=== PATIENT | male | born 1970 | race Caucasian/White ===

== ENCOUNTER 2016-08-11 18:33 | Inpatient (IN) | payer MEDICAID, OTHER, SELFPAY ==
[~2016-08-11] VITALS: Ht 182.9 cm; Wt 92.4 kg
[~2016-08-11 18:33] MED LIST: /DIPH25TAB PO; /MIRT15TA PO; ATEN50TA2 PO; DEPA500T2 PO; EFFEXOR XR PO; HYDR50TA PO; IMIT100T PO; LISI20TA PO; LITH600C PO; METO12TA PO; OMEP20CA3 PO; PRED50TA PO; PROZ20CA11 PO; SEROQUEL PO; TRAZ100T2 PO; TRAZ150T PO; no home medication
[2016-08-11] MEDS ORDERED: NS 1,000 ML IV ONE ×2 (18:45→23:00)
[2016-08-11 19:07] LABS: BASO # 0.1 K/mm3 (0.0-0.2); BASO % 0.7 % (0.0-1.0); EOS # 0.4 K/mm3 (0.0-0.50); EOS % 4.1 % (0.0-3.0); LARGE UNSTAINED CELL # 0.2 K/mm3 (0.0-0.4); LARGE UNSTAINED CELL % 2.3 % (0.0-4.0); LYMPH # 2.8 K/mm3 (1.5-4.5); LYMPH % 32.5 % (24.0-44.0); MEAN CORPUSCULAR HEMOGLOBIN 32.3 pg (27.0-33.0); MEAN CORPUSCULAR HGB CONC 33.8 g/dl (32.0-36.5); MEAN CORPUSCULAR VOLUME 95.6 fl (80.0-96.0); MONO # 0.5 K/mm3 (0.0-0.8); MONO % 5.8 % (0.0-5.0); NEUTROPHILS # 4.7 K/mm3 (1.8-7.7); NEUTROPHILS % 54.6 % (36.0-66.0); PLATELET COUNT, AUTOMATED 250 k/mm3 (150-450); RED CELL DISTRIBUTION WIDTH 13.1 % (11.5-14.5); WHITE BLOOD COUNT 8.7 K/mm3 (4.0-10.0)
--- NOTE | 2016-08-11 19:10 | REPUSA ---
CT of the head Clinical history: altered mental status. Technique: Multiple axial CT images were obtained through the head without administration of contrast . Comparison: None. Findings: The ventricles and sulci are symmetric bilaterally. There is no evidence of acute hemorrhag e or infarct. There is no midline shift, mass effect, or extra-axial fluid collection. The osseous st ructures are unremarkable. The visualized paranasal sinuses and mastoid air cells are clear. Impression: Negative study.
[2016-08-11 19:22] LABS: ALBUMIN 3.7 GM/DL (3.2-5.2); ALBUMIN/GLOBULIN RATIO 1.32 (1.00-1.93); ALKALINE PHOSPHATASE 79 U/L (45-117); ALT/SGPT 40 U/L (12-78); ANION GAP 8 MEQ/L (8-16); AST/SGOT 23 U/L (15-37); BILIRUBIN,DIRECT 0.1 MG/DL (0.0-0.2); BILIRUBIN,TOTAL 0.2 MG/DL (0.2-1.0); BLOOD UREA NITROGEN 19 MG/DL (7-18); CALCIUM LEVEL 8.3 MG/DL (8.5-10.1); CARBON DIOXIDE LEVEL 24 MEQ/L (21-32); CHLORIDE LEVEL 109 MEQ/L (98-107); CREATININE FOR GFR 0.87 MG/DL (0.70-1.30); GLOMERULAR FILTRATION RATE > 60.0 (>60); GLUCOSE, FASTING 91 MG/DL (70-105); POTASSIUM SERUM 4.1 MEQ/L (3.5-5.1); SODIUM LEVEL 141 MEQ/L (136-145); TOTAL PROTEIN 6.5 GM/DL (6.4-8.2)
[2016-08-11] MEDS ORDERED: MIDAZOLAM INJ 2 MG/2 ML VIAL (J2250) IV STA ×2 (19:27→19:50)
[2016-08-11] MEDS ORDERED: MIDAZOLAM INJ 5 MG/ML VIAL (J2250) As Ordered ONE ×2 (19:27→20:27)
[2016-08-11] MEDS ORDERED: MIDAZOLAM HCL 50 MG in D5W 40 ML IV SCH (19:30)
[2016-08-11] MEDS ORDERED: ETOMIDATE INJ 20MG/10ML VIAL IV ONE (19:30)
[2016-08-11] MEDS ORDERED: SUCCINYLCHOLINE INJ 200 MG/10 ML VIAL (J0330) IV ONE (19:30)
[2016-08-11] MEDS ORDERED: CHARCOAL ACTIVATED LIQUID 25 GM/120 ML BTL PO ONE (20:00)
[2016-08-11 20:19] LABS: METHADONE URINE NEGATIVE (NEGATIVE)
[2016-08-11] MEDS ORDERED: MORPHINE 2 MG/ML 1ML SYRINGE IV PRN (22:45)
[2016-08-11] MEDS ORDERED: REFRIGERATOR IV KEYS XX PRN (22:45)
[2016-08-11] MEDS ORDERED: NS 1,000 ML IV SCH (23:00)
[2016-08-11 23:30] LABS: ABG BASE EXCESS -3.1 (-2.0-2.0); ABG PARTIAL PRESSURE CO2 45.3 mmHg (35.0-45.0); ABG PARTIAL PRESSURE O2 128.3 mmHg (75.0-100.0); ABG STANDARD HCO3 21.9 MEQ/L (22.0-26.0); ABG TOTAL CO2 24.4 MEQ/L (22.0-29.0); ABG pH (ARTERIAL) 7.324 UNITS (7.350-7.450)
[2016-08-11] MEDS: D5W/0.9% SODIUM CHLORIDE 1,000 ML IV SCH (23:48)
[2016-08-11] MEDS ORDERED: ETOMIDATE INJ 20MG/10ML VIAL ONE (23:51)
[2016-08-11] MEDS ORDERED: SUCCINYLCHOLINE 100 MG/5 ML SYRINGE (J0330) ONE (23:51)
[2016-08-12] VITALS (15 sets, daily range): BP systolic 91–142; BP diastolic 53–89; O2SAT 99
[2016-08-12] MEDS ORDERED: MIDAZOLAM HCL 100 MG in D5W 80 ML IV SCH (00:05)
--- NOTE | 2016-08-12 01:05 | REP ---
Clinical: Endotracheal tube placement . Comparison: 11/29/2013 . Findings: Endotracheal tube approximately 6 cm above the jose g at the thoracic inlet. Nasogastric tube courses below left hemidiaphragm. The mediastinum and cardiac silhouette are stable and within normal limits for portable technique. The lung white are clear without acute consolidation, effusion, or pneumothorax. Skeletal structures are intact. Impression: No focal consolidation. Endotracheal tube and nasogastric tube as described above. Signed by Ezequiel Yen MD 08/12/2016 12:57 A
[2016-08-12] MEDS ORDERED: PATIENT COMMENT (01:26)
[2016-08-12] MEDS ORDERED: LevoFLOXacin IV 500 MG in APPROPRIATE DILUENT 1 EA IV SCH (02:00)
[2016-08-12] MEDS: IPRATROPIUM 0.5MG/ALBUTEROL 2.5MG INH SOL UD 3ML (DUONEB)(J7620) NEB SCH ×4 (02:29→11:40)
[2016-08-12 04:52] LABS: BASO % 0.4 % (0.0-1.0); EOS # 0.2 K/mm3 (0.0-0.50); EOS % 3.2 % (0.0-3.0); LARGE UNSTAINED CELL # 0.1 K/mm3 (0.0-0.4); LARGE UNSTAINED CELL % 2.2 % (0.0-4.0); LYMPH # 1.6 K/mm3 (1.5-4.5); LYMPH % 26.8 % (24.0-44.0); MEAN CORPUSCULAR HEMOGLOBIN 32.3 pg (27.0-33.0); MEAN CORPUSCULAR HGB CONC 32.9 g/dl (32.0-36.5); MEAN CORPUSCULAR VOLUME 98.2 fl (80.0-96.0); MONO # 0.3 K/mm3 (0.0-0.8); MONO % 5.7 % (0.0-5.0); NEUTROPHILS # 3.7 K/mm3 (1.8-7.7); NEUTROPHILS % 61.7 % (36.0-66.0); PLATELET COUNT, AUTOMATED 220 k/mm3 (150-450)
[2016-08-12 05:12] LABS: ALBUMIN 2.9 GM/DL (3.2-5.2); ALBUMIN/GLOBULIN RATIO 1.07 (1.00-1.93); ALKALINE PHOSPHATASE 67 U/L (45-117); ALT/SGPT 29 U/L (12-78); ANION GAP 8 MEQ/L (8-16); AST/SGOT 15 U/L (15-37); BILIRUBIN,TOTAL 0.6 MG/DL (0.2-1.0); BLOOD UREA NITROGEN 12 MG/DL (7-18); CALCIUM LEVEL 7.4 MG/DL (8.5-10.1); CARBON DIOXIDE LEVEL 24 MEQ/L (21-32); CHLORIDE LEVEL 110 MEQ/L (98-107); CHOLESTEROL LEVEL 103 MG/DL (< 200); CREATININE FOR GFR 0.78 MG/DL (0.70-1.30); GLOMERULAR FILTRATION RATE > 60.0 (>60); GLUCOSE, FASTING 93 MG/DL (70-105); PHOSPHORUS LEVEL 4.5 MG/DL (2.5-4.9); POTASSIUM SERUM 3.9 MEQ/L (3.5-5.1); SODIUM LEVEL 142 MEQ/L (136-145); TOTAL PROTEIN 5.6 GM/DL (6.4-8.2); TRIGLYCERIDES LEVEL 986 MG/DL (<150)
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
[2016-08-12] MEDS: D5W/0.9% SODIUM CHLORIDE 1,000 ML IV SCH (05:44)
[2016-08-12] MEDS: HEPARIN SOD (PORCINE) 5000 UNITS/ML VIAL SC SCH ×2 (05:45→14:14)
[2016-08-12] MEDS: MIDAZOLAM INJ 2 MG/2 ML VIAL (J2250) IV PRN ×2 (05:54→06:57)
[2016-08-12 06:22] LABS: ABG HCO3 22.6 MEQ/L (22.0-26.0); ABG PARTIAL PRESSURE CO2 38.1 mmHg (35.0-45.0); ABG PARTIAL PRESSURE O2 93.1 mmHg (75.0-100.0); ABG STANDARD HCO3 22.8 MEQ/L (22.0-26.0); ABG TOTAL CO2 23.8 MEQ/L (22.0-29.0); ABG pH (ARTERIAL) 7.391 UNITS (7.350-7.450)
[2016-08-12 07:40] LABS: ABG HCO3 22.2 MEQ/L (22.0-26.0); ABG PARTIAL PRESSURE CO2 36.2 mmHg (35.0-45.0); ABG PARTIAL PRESSURE O2 71.3 mmHg (75.0-100.0); ABG STANDARD HCO3 22.8 MEQ/L (22.0-26.0); ABG TOTAL CO2 23.3 MEQ/L (22.0-29.0); ABG pH (ARTERIAL) 7.406 UNITS (7.350-7.450)
[2016-08-12] MEDS ORDERED: CHLORHEXIDINE GLUCONATE 0.12 % 15ML UDC (PERIDEX ORAL RINSE) MT SCH (09:00)
[2016-08-12] MEDS ORDERED: PANTOPRAZOLE 40MG INJ (PROTONIX) (C9113) IV SCH (09:00)
[2016-08-12] MEDS ORDERED: THIAMINE 100 MG TAB PO SCH (09:00)
[2016-08-12] MEDS ORDERED: OXAZEPAM 10 MG CAP PO PRN (09:00)
[2016-08-12] MEDS ORDERED: MULTIVITAMINS/MINERALS THERAP 1 TAB PO SCH (09:00)
[2016-08-12] MEDS ORDERED: FOLIC ACID 1 MG TAB PO SCH (09:00)
--- NOTE | 2016-08-12 09:15 | REP ---
PORTABLE CHEST: AP portable view of the chest was performed and compared to prior study of 08/11/2016. The study is limited by patient motion. There again appears to be an endotracheal tube vaguely visualized with no definite change in position. Nasogastric tube traverses into the stomach. Cardiomediastinal silhouette is unchanged. No gross infiltrates are seen. IMPRESSION: Grossly stable exam. Signed by Maximus Centeno MD 08/13/2016 05:06 P
--- NOTE | 2016-08-12 11:16 | ECGEPIP ---
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
--- NOTE | 2016-08-12 11:20 | ECGEPIP ---
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
[2016-08-12] MEDS ORDERED: FOLI1TAB2 PO (16:02)
[2016-08-12] MEDS ORDERED: THIA100TA PO (16:02)
[2016-08-12] MEDS ORDERED: VITMTA PO (16:02)
[2016-08-12] MEDS ORDERED: LEVA500T PO (16:02)
[2016-08-12] MEDS ORDERED: OXAZ10CA PO (16:02)
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
[2016-08-12] MEDS ORDERED: LevoFLOXacin 500 MG TABLET PO SCH (18:00)
--- NOTE | 2016-08-13 00:57 | ECGEPIP ---
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
== END 2016-08-12 17:25 | DRG 812 ==
LOC: M ED 19:14 → M ED INP 23:05 → M ICU 23:59
PROVIDERS: ADMIT Internal Medicine Pulmonary Disease; ATTEND Hospitalist
PROC: 5A1945Z Respiratory Ventilation, 24-96 Consecutive Hours (ICD-10-PCS; principal; 2016-08-12)
DX: T42.4X2A Poisoning by benzodiazepines, intentional self-harm, initial encounter (principal); J69.0 Pneumonitis due to inhalation of food and vomit; T43.8X2A Poisoning by other psychotropic drugs, intentional self-harm, initial encounter; F10.129 Alcohol abuse with intoxication, unspecified; Z79.899 Other long term (current) drug therapy; Z91.040 Latex allergy status; Z88.0 Allergy status to penicillin; Y90.0 Blood alcohol level of less than 20 mg/100 ml

== ENCOUNTER 2016-08-12 16:37 | Inpatient (IN) | payer MEDICAID, SELFPAY ==
[~2016-08-12] VITALS: Ht 177.8 cm; Wt 95.1 kg
[~2016-08-12 16:37] MED LIST changes: +FOLI1TAB4 PO; +LEVA1TAB2 PO; +OXAZ10CA3 PO; +PATIENT COMMENT; +THIA100TA PO; +VITMTA PO
[2016-08-12 17:34] VITALS: BP 142/88
[2016-08-12 18:31] VITALS: BP_SYST 142
[2016-08-12] MEDS ORDERED: MAALOX 30 ML SUSP *UDC PO PRN (18:45)
[2016-08-12] MEDS ORDERED: traZODone 50 MG TAB PO PRN (18:45)
[2016-08-12] MEDS ORDERED: chlordiazePOXIDE 25 MG CAP PO PRN (18:45)
[2016-08-12] MEDS ORDERED: MOM 30ML SUSPENSION UDC PO PRN (18:45)
[2016-08-12] MEDS: LevoFLOXacin 500 MG TABLET PO SCH (20:09)
[2016-08-13 06:26] VITALS: BP 154/90
[2016-08-13] MEDS ORDERED: MUPIROCIN 2% OINT 22 GM TUBE TOP PRN (09:00)
[2016-08-13] MEDS: THIAMINE 100 MG TAB PO SCH (09:02)
[2016-08-13] MEDS: MULTIVITAMINS/MINERALS THERAP 1 TAB PO SCH (09:02)
[2016-08-13] MEDS: FOLIC ACID 1 MG TAB PO SCH (09:02)
[2016-08-13] MEDS: ACETAMINOPHEN TAB 650MG DOSE (2X325MG) PO PRN (09:03)
[2016-08-13] MEDS: SERTRALINE HCL 25 MG TABLET PO SCH (09:44)
[2016-08-13] MEDS: busPIRone 10 MG TAB PO SCH ×3 (09:44→20:37)
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
[2016-08-13] MEDS: NICOTINE POLACRILEX 2 MG GUM PO PRN ×2 (16:40→20:38)
[2016-08-13] MEDS: LevoFLOXacin 500 MG TABLET PO SCH (17:28)
[2016-08-13] MEDS: hydrOXYzine 25 MG TAB PO PRN (17:28)
[2016-08-13 18:00] VITALS: BP 134/81
[2016-08-13] MEDS ORDERED: QUEtiapine FUMERATE XR 50 MG TABER PO SCH (21:00)
[2016-08-14 06:41] VITALS: BP 125/76
[2016-08-14 07:45] LABS: MEAN CORPUSCULAR HEMOGLOBIN 32.6 pg (27.0-33.0); MEAN CORPUSCULAR HGB CONC 34.3 g/dl (32.0-36.5); MEAN CORPUSCULAR VOLUME 95.2 fl (80.0-96.0); RED CELL DISTRIBUTION WIDTH 13.3 % (11.5-14.5); WHITE BLOOD COUNT 9.2 K/mm3 (4.0-10.0)
[2016-08-14 08:09] LABS: ALBUMIN 3.2 GM/DL (3.2-5.2); ALBUMIN/GLOBULIN RATIO 1.03 (1.00-1.93); ALKALINE PHOSPHATASE 83 U/L (45-117); ALT/SGPT 31 U/L (12-78); ANION GAP 9 MEQ/L (8-16); AST/SGOT 18 U/L (15-37); BILIRUBIN,TOTAL 0.5 MG/DL (0.2-1.0); BLOOD UREA NITROGEN 18 MG/DL (7-18); CALCIUM LEVEL 8.7 MG/DL (8.5-10.1); CARBON DIOXIDE LEVEL 26 MEQ/L (21-32); CHLORIDE LEVEL 107 MEQ/L (98-107); CHOLESTEROL LEVEL 125 MG/DL (<200); CREATININE FOR GFR 0.88 MG/DL (0.70-1.30); GLOMERULAR FILTRATION RATE > 60.0 (>60); GLUCOSE, FASTING 118 MG/DL (70-105); SODIUM LEVEL 142 MEQ/L (136-145); TOTAL PROTEIN 6.3 GM/DL (6.4-8.2); TRIGLYCERIDES LEVEL 172 MG/DL (<150)
[2016-08-14] MEDS: SERTRALINE HCL 25 MG TABLET PO SCH (09:22)
[2016-08-14] MEDS: FOLIC ACID 1 MG TAB PO SCH (09:22)
[2016-08-14] MEDS: MULTIVITAMINS/MINERALS THERAP 1 TAB PO SCH (09:22)
[2016-08-14] MEDS: busPIRone 10 MG TAB PO SCH ×3 (09:22→21:35)
[2016-08-14] MEDS: THIAMINE 100 MG TAB PO SCH (09:22)
[2016-08-14] MEDS: NICOTINE POLACRILEX 2 MG GUM PO PRN (11:40)
[2016-08-14] MEDS: hydrOXYzine 25 MG TAB PO PRN (11:40)
[2016-08-14] MEDS: QUEtiapine FUMARATE 50 MG TAB PO PRN ×2 (12:57→21:35)
--- NOTE | 2016-08-14 13:55 | MHIPNPDOC ---
[facility] Progress Note Progress Note DATE OF SERVICE: 08/14/16 HISTORY: day 3/admitted after severe intentional overdose. Pt released from [facility] 1 week ago. VITAL SIGNS: See below. NEW TEST RESULTS: CURRENT MEDICATIONS: See below. MENTAL STATUS EXAMINATION: Patient is a 46-year old male, who is dressed in hospital attire, bald, medium frame, good eye contact . Speech: Is clearly states needs, spontaneous Language skills are good Thought processes including: goal directed Thought content: appropriate. Abstract reasoning, and computation: good. Description of associations: good. Description of abnormal or psychotic thoughts: no perceptual disturbance, no delusions, continues with limited thoughts of suicide. Judgment: limited Insight: fair. Orientation: well oriented in all spheres. Recent and remote memory: intact Attention span and concentration: poor since overdose, getting better Fund of knowledge: full. Mood: depressed Affect: congruent. DIAGNOSES: 1. MDD severe, recurrent without psychotic features. 2. Alcohol abuse 3. adjustment disorder with depressed mood and anxiety. ASSESSMENT:pt has been seclusive to room and sleeping most of the past 36 hours. Spoke with him today about attending therapeutic programming as part of his treatment. He agrees to do so. Pt is taking medication as ordered without side effects. No n/v/d or constipation. Explained risks and benefits to sertraline and quetiapine XR. Answered all questions. Explained purpose for these meds and what he should expect from them. Explained his prns and when to request them. pt is adjusting and participating in discharge planning. He is interested in inpatient substance abuse treatment and feels it would be beneficial for him. We will see if he is eligible for treatment in the area and if his PO will allow this. Pt is eating at meals, attending to hygiene and not creating behavior problems on the unit. He was visited by his Aeronautics Teacher, Pastor Saals today who called him "a good marleny". MANAGEMENT PLAN: increased seroquel xr at 6 p.m. today, change from 50 mg to 100mg, raised sertraline from 25 mg to 50 mg po. will monitor for improved mood, less racing thoughts, improved concentration, less anxiety. TIME SPENT: 20 minutes. Vital Signs Vital Signs Date Time Temp Pulse Resp B/P (MAP) Pulse Ox O2 Delivery O2 Flow Rate FiO2 08/14/16 06:41 98.4 56 16 125/76 (92) Laboratory Data 24H Labs Laboratory Tests 2 08/14/16 07:14: Anion Gap 9, Glomerular Filtration Rate > 60.0, Blood Urea Nitrogen 18, Creatinine 0.88, Sodium Level 142, Potassium Level 4.0, Chloride Level 107, Carbon Dioxide Level 26, Calcium Level 8.7#, Aspartate Amino Transf (AST/SGOT) 18, Alanine Aminotransferase (ALT/SGPT) 31, Alkaline Phosphatase 83, Total Bilirubin 0.5, Triglycerides Level 172H, LDL Cholesterol 28.6, Total Protein 6.3L, Albumin 3.2, Albumin/Globulin Ratio 1.03, Total Cholesterol 125, Non-HDL Cholesterol (LDL + VLDL) 63, Total HDL Cholesterol 62, Cholesterol/HDL Ratio 2.016 CBC/BMP Laboratory Tests 08/14/16 07:14 Red Blood Count 4.16 L, Mean Corpuscular Volume 95.2, Mean Corpuscular Hemoglobin 32.6, Mean Corpuscular Hemoglobin Concent 34.3, Red Cell Distribution Width 13.3, Calcium Level 8.7 #, Aspartate Amino Transf (AST/SGOT) 18, Alanine Aminotransferase (ALT/SGPT) 31, Alkaline Phosphatase 83, Total Bilirubin 0.5, Triglycerides Level 172 H, LDL Cholesterol 28.6, Total Protein 6.3 L, Albumin 3.2 Current Medications Current Medications Acetaminophen (Tylenol Tab) 650 mg Q6HP PRN PO HEADACHE or DISCOMFORT Last administered on 08/13/16 09:03; Start 08/12/16 at 18:45; Stop 09/11/16 at 18:44 Al Hydrox/Mg Hydrox/Simethicone (Mylanta) 30 ml Q4HP PRN PO HEARTBURN/ INDIGESTION; Start 08/12/16 at 18:45; Stop 09/11/16 at 18:44 Buspirone HCl (Buspar) 10 mg TID PO Last administered on 08/14/16 09:22; Start 08/13/16 at 09:00; Stop 09/12/16 at 08:59 Chlordiazepoxide (Librium) 25 mg TIDP PRN PO WITHDRAWAL SYMPTOMS; Start at 18:45; Stop 08/19/16 at 18:44 Folic Acid (Folic Acid) 1 mg QAM PO Last administered on 08/14/16 09:22; Start 08/13/16 at 09:00; Stop 09/12/16 at 08:59 Hydroxyzine HCl (Atarax) 25 mg Q6HP PRN PO ANXIETY Last administered on 11:40; Start 08/13/16 at 09:15; Stop 09/12/16 at 09:14 Levofloxacin (Levaquin) 500 mg DAILY@1800 PO Last administered on 08/13/16 17: 28; Start 08/12/16 at 18:00; Stop 08/19/16 at 17:59 Magnesium Hydroxide (Milk Of Magnesia) 30 ml DAILYPRN PRN PO CONSTIPATION; Start 08/12/16 at 18:45; Stop 09/11/16 at 18:44 Multivitamins (Theragram-M) 1 tab DAILY PO Last administered on 08/14/16 09:22 ; Start 08/13/16 at 09:00; Stop 09/12/16 at 08:59 Mupirocin (Bactroban 2% Ointment) 1 dose BID PRN TOP REDNESS/IRRITATION; Start 08/13/16 at 09:00; Stop 09/12/16 at 08:59 Nicotine (Nicorette) 2 mg Q2HP PRN PO NICOTINE WITHDRAWAL Last administered on 08/14/16 11:40; Start 08/12/16 at 18:45; Stop 09/11/16 at 18:44 Quetiapine Fumarate (SEROquel) 50 mg Q8HP PRN PO ANXIETY/AGITATION Last administered on 08/14/16 12:57; Start 08/13/16 at 09:15; Stop 09/12/16 at 09:14 Quetiapine Fumarate (Seroquel Xr) 50 mg QHS PO Last administered on 08/13/16 20:38; Start 08/13/16 at 21:00; Stop 08/14/16 at 12:36; Status DC Quetiapine Fumarate (Seroquel Xr) 100 mg DAILY@1800 PO ; Start 08/14/16 at 18:00 ; Stop 09/13/16 at 17:59 Sertraline HCl (Zoloft) 25 mg QAM PO Last administered on 08/14/16 09:22; Start 08/13/16 at 09:00; Stop 08/14/16 at 12:41; Status DC Sertraline HCl (Zoloft) 50 mg DAILY PO ; Start 08/15/16 at 09:00; Stop 09/14/16 at 08:59 Thiamine HCl (Thiamine HCl) 100 mg QAM PO Last administered on 08/14/16t 09:22 ; Start 08/13/16 at 09:00; Stop 09/12/16 at 08:59 Trazodone HCl (Desyrel) 50 mg QHSP PRN PO INSOMNIA; Start 08/12/16 at 18:45; Stop 09/11/16 at 18:44; Status Cancel Allergies Coded Allergies: Penicillins (Verified Allergy, Intermediate, rash, 05/29/12) Penicillins Cross Reactors (Verified Allergy, Intermediate, rash, 05/29/12) Latex (Verified Allergy, Mild, rash, 05/29/12) Dee Morley Aug 14, 2016 13:55
[2016-08-14] MEDS: QUEtiapine FUMERATE XR 50 MG TABER PO SCH (17:38)
[2016-08-14] MEDS: ACETAMINOPHEN TAB 650MG DOSE (2X325MG) PO PRN (17:39)
[2016-08-14] MEDS: LevoFLOXacin 500 MG TABLET PO SCH (17:39)
[2016-08-14 18:00] VITALS: BP 146/83
[2016-08-15 06:00] VITALS: BP 143/76
[2016-08-15] MEDS: FOLIC ACID 1 MG TAB PO SCH (08:02)
[2016-08-15] MEDS: THIAMINE 100 MG TAB PO SCH (08:03)
[2016-08-15] MEDS: busPIRone 10 MG TAB PO SCH ×3 (08:03→20:43)
[2016-08-15] MEDS: QUEtiapine FUMARATE 50 MG TAB PO PRN (08:03)
[2016-08-15] MEDS: hydrOXYzine 25 MG TAB PO PRN ×3 (08:03→20:43)
[2016-08-15] MEDS: SERTRALINE HCL 50 MG TAB PO SCH (08:03)
[2016-08-15] MEDS: MULTIVITAMINS/MINERALS THERAP 1 TAB PO SCH (08:03)
[2016-08-15] MEDS: NICOTINE POLACRILEX 2 MG GUM PO PRN ×2 (11:13→15:54)
[2016-08-15 18:00] VITALS: BP 142/63
[2016-08-15] MEDS: LevoFLOXacin 500 MG TABLET PO SCH (18:22)
[2016-08-15] MEDS: QUEtiapine FUMERATE XR 50 MG TABER PO SCH (18:23)
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
[2016-08-16 06:00] VITALS: BP 124/64
[2016-08-16] MEDS: THIAMINE 100 MG TAB PO SCH (08:06)
[2016-08-16] MEDS: FOLIC ACID 1 MG TAB PO SCH (08:06)
[2016-08-16] MEDS: SERTRALINE HCL 50 MG TAB PO SCH (08:06)
[2016-08-16] MEDS: MULTIVITAMINS/MINERALS THERAP 1 TAB PO SCH (08:06)
[2016-08-16] MEDS: busPIRone 10 MG TAB PO SCH ×3 (08:06→20:54)
[2016-08-16] MEDS: NICOTINE POLACRILEX 2 MG GUM PO PRN ×3 (08:08→18:00)
[2016-08-16] MEDS: QUEtiapine FUMARATE 50 MG TAB PO PRN (09:03)
[2016-08-16] MEDS: hydrOXYzine 25 MG TAB PO PRN ×2 (11:32→18:00)
[2016-08-16 18:00] VITALS: BP 140/95
[2016-08-16] MEDS: LevoFLOXacin 500 MG TABLET PO SCH (18:00)
[2016-08-16] MEDS: QUEtiapine FUMERATE XR 50 MG TABER PO SCH (18:00)
--- NOTE | 2016-08-16 18:21 | MHIPNPDOC ---
[facility] Progress Note Progress Note DATE OF SERVICE: 08/16/16 INTERVAL HISTORY: Medication Side effects: reports no side effects from his psychiatric medications at this time Behavior/events: has been friendly, with no issues overnight Group Attendance: has attended some groups Psychiatric Symptoms: reports that he is having difficulty with continued depressed mood, worries about his social situation, continues to have nightmares that awaken him during sleep. Reports that during these he experiences sweating and feelings of terror. VITAL SIGNS: See below. NEW TEST RESULTS: See below CURRENT MEDICATIONS: See below. MENTAL STATUS EXAMINATION: General: Well dressed with good hygiene Speech: Spontaneous and fluid Thought processes: Linear and logical Thought content: worries Abstract reasoning, and computation: Intact Description of associations: Intact Description of abnormal or psychotic thoughts:Denies any suicidal or homicidal ideation. Denies any auditory or visual hallucinations. Does not appear to be responding to internal stimuli. Does not appear to be endorsing any bizarre or paranoid ideation. Judgment: limited Insight: limited Orientation: Alert and orientated 3 Recent and remote memory: Intact Attention span and concentration: Intact Fund of knowledge: Adequate Mood: "okay" Affect: dysthymic DIAGNOSES: 1. Unspecified trauma/stressor disorder. 2. Unspecified anxiety disorder. 3. Alcohol use disorder ASSESSMENT: some improvement MANAGEMENT PLAN: Medications: continue medications has below with no changes, will and prazosin 1 mg nightly Psychotherapy: encourage group therapy Social: no discharge date yet Misc: none Disposition: The patient will need of further inpatient stay to address severe depressive and trauma symptoms TIME SPENT: 15 minutes. Vital Signs Vital Signs Date Time Temp Pulse Resp B/P (MAP) Pulse Ox O2 Delivery O2 Flow Rate FiO2 08/16/16 06:00 99.1 57 16 124/64 (84) Current Medications Current Medications Acetaminophen (Tylenol Tab) 650 mg Q6HP PRN PO HEADACHE or DISCOMFORT Last administered on 08/14/16 17:39; Start 08/12/16 at 18:45; Stop 09/11/16 at 18:44 Al Hydrox/Mg Hydrox/Simethicone (Mylanta) 30 ml Q4HP PRN PO HEARTBURN/ INDIGESTION; Start 08/12/16 at 18:45; Stop 09/11/16 at 18:44 Buspirone HCl (Buspar) 10 mg TID PO Last administered on 08/16/16 15:06; Start 08/13/16 at 09:00; Stop 09/12/16 at 08:59 Chlordiazepoxide (Librium) 25 mg TIDP PRN PO WITHDRAWAL SYMPTOMS; Start at 18:45; Stop 08/19/16 at 18:44 Folic Acid (Folic Acid) 1 mg QAM PO Last administered on 08/16/16 08:06; Start 08/13/16 at 09:00; Stop 09/12/16 at 08:59 Hydroxyzine HCl (Atarax) 25 mg Q6HP PRN PO ANXIETY Last administered on 18:00; Start 08/13/16 at 09:15; Stop 09/12/16 at 09:14 Levofloxacin (Levaquin) 500 mg DAILY@1800 PO Last administered on 08/16/16 18: 00; Start 08/12/16 at 18:00; Stop 08/19/16 at 17:59 Magnesium Hydroxide (Milk Of Magnesia) 30 ml DAILYPRN PRN PO CONSTIPATION; Start 08/12/16 at 18:45; Stop 09/11/16 at 18:44 Multivitamins (Theragram-M) 1 tab DAILY PO Last administered on 08/16/16 08:06 ; Start 08/13/16 at 09:00; Stop 09/12/16 at 08:59 Mupirocin (Bactroban 2% Ointment) 1 dose BID PRN TOP REDNESS/IRRITATION; Start 08/13/16 at 09:00; Stop 09/12/16 at 08:59 Nicotine (Nicorette) 2 mg Q2HP PRN PO NICOTINE WITHDRAWAL Last administered on 08/16/16 18:00; Start 08/12/16 at 18:45; Stop 09/11/16 at 18:44 Prazosin HCl (Minipress) 1 mg QHS PO ; Start 08/16/16 at 21:00; Stop 09/15/16 at 20:59 Quetiapine Fumarate (SEROquel) 50 mg Q8HP PRN PO ANXIETY/AGITATION Last administered on 08/16/16 09:03; Start 08/13/16 at 09:15; Stop 09/12/16 at 09:14 Quetiapine Fumarate (Seroquel Xr) 50 mg QHS PO Last administered on 08/13/16 20:38; Start 08/13/16 at 21:00; Stop 08/14/16 at 12:36; Status DC Quetiapine Fumarate (Seroquel Xr) 100 mg DAILY@1800 PO Last administered on 18:00; Start 08/14/16 at 18:00; Stop 09/13/16 at 17:59 Sertraline HCl (Zoloft) 25 mg QAM PO Last administered on 08/14/16 09:22; Start 08/13/16 at 09:00; Stop 08/14/16 at 12:41; Status DC Sertraline HCl (Zoloft) 50 mg DAILY PO Last administered on 08/16/16 08:06; Start 08/15/16 at 09:00; Stop 09/14/16 at 08:59 Thiamine HCl (Thiamine HCl) 100 mg QAM PO Last administered on 08/16/16 08:06 ; Start 08/13/16 at 09:00; Stop 09/12/16 at 08:59 Trazodone HCl (Desyrel) 50 mg QHSP PRN PO INSOMNIA; Start 08/12/16 at 18:45; Stop 09/11/16 at 18:44; Status Cancel Allergies Coded Allergies: Penicillins (Verified Allergy, Intermediate, rash, 05/29/12) Penicillins Cross Reactors (Verified Allergy, Intermediate, rash, 05/29/12) Latex (Verified Allergy, Mild, rash, 05/29/12) GME ATTESTATION My preceptor for this patient encounter was physically present in the building during the encounter and was fully available. As needed, all aspects of the patient interview, examination, medical decision making process, and medical care plan development were reviewed and approved by the preceptor. Preceptor is aware and concurs with the plan as stated in the body of this note and will attest to such by his/her cosignature. ABDIRIZAK REED DO Aug 16, 2016 18:21
[2016-08-16] MEDS: PRAZOSIN 1 MG CAP PO SCH (20:54)
[2016-08-17 06:27] VITALS: BP 139/73
[2016-08-17] MEDS: FOLIC ACID 1 MG TAB PO SCH (08:49)
[2016-08-17] MEDS: MULTIVITAMINS/MINERALS THERAP 1 TAB PO SCH (08:49)
[2016-08-17] MEDS: SERTRALINE HCL 50 MG TAB PO SCH (08:50)
[2016-08-17] MEDS: THIAMINE 100 MG TAB PO SCH (08:50)
[2016-08-17] MEDS: NICOTINE POLACRILEX 2 MG GUM PO PRN ×2 (08:50→16:48)
[2016-08-17] MEDS: busPIRone 10 MG TAB PO SCH ×3 (08:50→20:32)
[2016-08-17] MEDS: QUEtiapine FUMARATE 50 MG TAB PO PRN (10:23)
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
[2016-08-17] MEDS: hydrOXYzine 25 MG TAB PO PRN (16:49)
[2016-08-17] MEDS: LevoFLOXacin 500 MG TABLET PO SCH (17:51)
[2016-08-17 18:24] VITALS: BP 125/60
[2016-08-17] MEDS: PRAZOSIN 1 MG CAP PO SCH (20:32)
[2016-08-17] MEDS ORDERED: QUEtiapine FUMARATE **XR** 200MG TABLET PO SCH (21:00)
[2016-08-18 06:30] VITALS: BP 160/89
[2016-08-18] MEDS: MULTIVITAMINS/MINERALS THERAP 1 TAB PO SCH (08:47)
[2016-08-18] MEDS: SERTRALINE HCL 50 MG TAB PO SCH (08:47)
[2016-08-18] MEDS: busPIRone 10 MG TAB PO SCH ×3 (08:47→20:05)
[2016-08-18] MEDS: THIAMINE 100 MG TAB PO SCH (08:47)
[2016-08-18] MEDS: FOLIC ACID 1 MG TAB PO SCH (08:47)
[2016-08-18] MEDS: hydrOXYzine 25 MG TAB PO PRN (08:47)
[2016-08-18] MEDS: NICOTINE POLACRILEX 2 MG GUM PO PRN ×2 (08:49→16:17)
[2016-08-18] MEDS: QUEtiapine FUMARATE 50 MG TAB PO PRN ×2 (11:50→20:05)
--- NOTE | 2016-08-18 14:37 | MHIPNPDOC ---
[facility] Progress Note Progress Note DATE OF SERVICE: 08/18/16 HISTORY: day 7 of admission, patient admitted following serious drug overdose on prescription medications. VITAL SIGNS: See below. NEW TEST RESULTS: na CURRENT MEDICATIONS: See below. MENTAL STATUS EXAMINATION: Patient is a 46-year old male, who is bald, wearing hospital attire, lying in bed with shirt over face, removes shirt to talk, poor eye contact. Speech: Is coherent, logical Language skills are intact Thought processes including: no delusions or obsessions, goal directed Thought content: worries about his life, his family. Abstract reasoning, and computation: good. Description of associations: fair. Description of abnormal or psychotic thoughts: pt denies auditory and visual disturbance, pt is offering assurances that he will not do anything to harm himself. He states he is not contemplating suicide or homicide. Judgment: fair. Insight: good. Orientation: oriented to time, place, person and situation. Recent and remote memory: intact Attention span and concentration: poor Fund of knowledge: full. Mood: depressed. Affect: anxious. DIAGNOSES: 1. MDD severe, recurrent without psychotic features. 2. Alcohol abuse 3. adjustment disorder with depressed mood and anxiety. ASSESSMENT: pt is very concerned about what is going to happen to him. Will his parole violate him and send him back to half-way? Will he be accepted at rehab? He would like to get a job. He tells me that the [facility] was able to supply him with funds for a deposit on an apartment. He would like to get an apartment for his and child and her other 2 children and also he would like to get back to work. He wants to be successful in re-integrating into society. He feel confident that if he has more time out of half-way, he can adjust to life. He states he wants to be "like ordinary people". Support rendered. Pt is taking medications as ordered. He is eating at most meals. He attended one group yesterday and was encouraged to attend 1 today. He is engaging with staff appropriately. MANAGEMENT PLAN: continue medications with seroquel XR. continue to encourage pt to attend groups. encourage him to spend less time in his room and more time engaged in activity. Continue observation and VS. Pt does display a sense of humor which is encouraging. TIME SPENT: 15 minutes. Vital Signs Vital Signs Date Time Temp Pulse Resp B/P (MAP) Pulse Ox O2 Delivery O2 Flow Rate FiO2 08/18/16 06:30 99.3 54 18 160/89 (112) Current Medications Current Medications Acetaminophen (Tylenol Tab) 650 mg Q6HP PRN PO HEADACHE or DISCOMFORT Last administered on 08/14/16 17:39; Start 08/12/16 at 18:45; Stop 09/11/16 at 18:44 Al Hydrox/Mg Hydrox/Simethicone (Mylanta) 30 ml Q4HP PRN PO HEARTBURN/ INDIGESTION; Start 08/12/16 at 18:45; Stop 09/11/16 at 18:44 Buspirone HCl (Buspar) 10 mg TID PO Last administered on 08/18/16 08:47; Start 08/13/16 at 09:00; Stop 09/12/16 at 08:59 Chlordiazepoxide (Librium) 25 mg TIDP PRN PO WITHDRAWAL SYMPTOMS; Start at 18:45; Stop 08/19/16 at 18:44 Folic Acid (Folic Acid) 1 mg QAM PO Last administered on 08/18/16 08:47; Start 08/13/16 at 09:00; Stop 09/12/16 at 08:59 Hydroxyzine HCl (Atarax) 25 mg Q6HP PRN PO ANXIETY Last administered on 08:47; Start 08/13/16 at 09:15; Stop 09/12/16 at 09:14 Levofloxacin (Levaquin) 500 mg DAILY@1800 PO Last administered on 08/17/16 17: 51; Start 08/12/16 at 18:00; Stop 08/19/16 at 17:59 Magnesium Hydroxide (Milk Of Magnesia) 30 ml DAILYPRN PRN PO CONSTIPATION; Start 08/12/16 at 18:45; Stop 09/11/16 at 18:44 Multivitamins (Theragram-M) 1 tab DAILY PO Last administered on 08/18/16 08:47 ; Start 08/13/16 at 09:00; Stop 09/12/16 at 08:59 Mupirocin (Bactroban 2% Ointment) 1 dose BID PRN TOP REDNESS/IRRITATION; Start 08/13/16 at 09:00; Stop 09/12/16 at 08:59 Nicotine (Nicorette) 2 mg Q2HP PRN PO NICOTINE WITHDRAWAL Last administered on 08/18/16 08:49; Start 08/12/16 at 18:45; Stop 09/11/16 at 18:44 Prazosin HCl (Minipress) 1 mg QHS PO Last administered on 08/17/16 20:32; Start 08/16/16 at 21:00; Stop 09/15/16 at 20:59 Quetiapine Fumarate (SEROquel XR) 200 mg DAILY@1830 PO ; Start 08/18/16 at 18:30; Stop 09/17/16 at 18:29 Quetiapine Fumarate (SEROquel XR) 200 mg PC PO ; Start 08/18/16 at 18:00; Stop 09/17/16 at 17:59; Status UNV Quetiapine Fumarate (SEROquel XR) 200 mg QHS PO Last administered on 20:32; Start 08/17/16 at 21:00; Stop 08/18/16 at 09:38; Status DC Quetiapine Fumarate (SEROquel) 50 mg Q8HP PRN PO ANXIETY/AGITATION Last administered on 08/18/16 11:50; Start 08/13/16 at 09:15; Stop 09/12/16 at 09:14 Quetiapine Fumarate (Seroquel Xr) 50 mg QHS PO Last administered on 08/13/16 20:38; Start 08/13/16 at 21:00; Stop 08/14/16 at 12:36; Status DC Quetiapine Fumarate (Seroquel Xr) 100 mg DAILY@1800 PO Last administered on 18:00; Start 08/14/16 at 18:00; Stop 08/17/16 at 10:26; Status DC Sertraline HCl (Zoloft) 25 mg QAM PO Last administered on 08/14/16 09:22; Start 08/13/16 at 09:00; Stop 08/14/16 at 12:41; Status DC Sertraline HCl (Zoloft) 50 mg DAILY PO Last administered on 08/18/16 08:47; Start 08/15/16 at 09:00; Stop 09/14/16 at 08:59 Thiamine HCl (Thiamine HCl) 100 mg QAM PO Last administered on 08/18/16t 08:47 ; Start 08/13/16 at 09:00; Stop 09/12/16 at 08:59 Trazodone HCl (Desyrel) 50 mg QHSP PRN PO INSOMNIA; Start 08/12/16 at 18:45; Stop 09/11/16 at 18:44; Status Cancel Allergies Coded Allergies: Penicillins (Verified Allergy, Intermediate, rash, 05/29/12) Penicillins Cross Reactors (Verified Allergy, Intermediate, rash, 05/29/12) Latex (Verified Allergy, Mild, rash, 05/29/12) Dee Morley Aug 18, 2016 14:37
[2016-08-18] MEDS ORDERED: QUEtiapine FUMARATE **XR** 200MG TABLET PO SCH (18:00)
[2016-08-18] MEDS: QUEtiapine FUMARATE **XR** 200MG TABLET PO SCH (18:05)
[2016-08-18] MEDS: LevoFLOXacin 500 MG TABLET PO SCH (18:05)
[2016-08-18 18:14] VITALS: BP 120/60
[2016-08-18] MEDS: PRAZOSIN 1 MG CAP PO SCH (20:05)
[2016-08-19 06:33] VITALS: BP 107/62
[2016-08-19] MEDS: FOLIC ACID 1 MG TAB PO SCH (08:03)
[2016-08-19] MEDS: busPIRone 10 MG TAB PO SCH (08:03)
[2016-08-19] MEDS: MULTIVITAMINS/MINERALS THERAP 1 TAB PO SCH (08:03)
[2016-08-19] MEDS: SERTRALINE HCL 50 MG TAB PO SCH (08:03)
[2016-08-19] MEDS: THIAMINE 100 MG TAB PO SCH (08:03)
[2016-08-19] MEDS: NICOTINE POLACRILEX 2 MG GUM PO PRN ×3 (10:07→20:05)
[2016-08-19] MEDS: QUEtiapine FUMARATE 50 MG TAB PO PRN ×2 (10:58→20:05)
--- NOTE | 2016-08-19 13:50 | MHIPNPDOC ---
[facility] Progress Note Progress Note DATE OF SERVICE: 08/19/16 HISTORY: day 8 of admission for depression with suicide attempt by overdose. VITAL SIGNS: See below. NEW TEST RESULTS: labs CURRENT MEDICATIONS: See below. MENTAL STATUS EXAMINATION: Patient is a 46-year old male, who is wearing hospital attire, bald, fair eye contact, easily engaged. Speech: Is logical and clear Language skills are intact Thought processes including: goal directed. Thought content: appropriate. Abstract reasoning, and computation: good. Description of associations: good. Description of abnormal or psychotic thoughts: denies SI and HI. no psychotic symptoms observed or illicited. Judgment: fair Insight: good. Orientation: oriented to person, place, time and situation. Recent and remote memory: intact Attention span and concentration: varies Fund of knowledge: average. Mood: depressed. Affect: anxious. DIAGNOSES: 1. MDD severe, recurrent without psychotic features. 2. Alcohol abuse 3. adjustment disorder with depressed mood and anxiety. ASSESSMENT:met with Ezequiel for 1:1. He is aware that he has been accepted at [facility] for long-term, inpatient substance abuse treatment. He is grateful for this. He has informed his . Pt is visible in the milieu a bit more this week. He reports playing cards with peers. He attends 1 or 2 groups daily. He is encouraged to attend all the groups that he can. Pt is taking meds as prescribed. He continues to worry about his adaptation into society due to his long institutionalization. He reports nightmares frequently. Little relief from the prazosin. Pt would like the chance to have his 2 yo daughter visit this weekend when her mother can bring her in. Since he has been here 8 days and won't be transferred until next week - where he will be for 30 days - this will be permitted. He will let assembly instructions writer know which day of the weekend this will be. MANAGEMENT PLAN: will increase prazosin, continue medications. TIME SPENT: 30 minutes. Vital Signs Vital Signs Date Time Temp Pulse Resp B/P (MAP) Pulse Ox O2 Delivery O2 Flow Rate FiO2 08/19/16 06:33 97.2 61 16 107/62 (77) Current Medications Current Medications Acetaminophen (Tylenol Tab) 650 mg Q6HP PRN PO HEADACHE or DISCOMFORT Last administered on 08/14/16t 17:39; Start 08/12/16 at 18:45; Stop 09/11/16 at 18:44 Al Hydrox/Mg Hydrox/Simethicone (Mylanta) 30 ml Q4HP PRN PO HEARTBURN/ INDIGESTION; Start 08/12/16 at 18:45; Stop 09/11/16 at 18:44 Buspirone HCl (Buspar) 10 mg TID PO Last administered on 08/19/16 08:03; Start 08/13/16 at 09:00; Stop 08/19/16 at 08:15; Status DC Buspirone HCl (Buspar) 15 mg TID PO ; Start 08/19/16 at 16:00; Stop 09/18/16 at 15:59 Chlordiazepoxide (Librium) 25 mg TIDP PRN PO WITHDRAWAL SYMPTOMS; Start at 18:45; Stop 08/19/16 at 18:44; Status Cancel Folic Acid (Folic Acid) 1 mg QAM PO Last administered on 08/19/16 08:03; Start 08/13/16 at 09:00; Stop 09/12/16 at 08:59 Hydroxyzine HCl (Atarax) 25 mg Q6HP PRN PO ANXIETY Last administered on 08:47; Start 08/13/16 at 09:15; Stop 09/12/16 at 09:14 Levofloxacin (Levaquin) 500 mg DAILY@1800 PO Last administered on 08/18/16 18: 05; Start 08/12/16 at 18:00; Stop 08/19/16 at 17:59 Magnesium Hydroxide (Milk Of Magnesia) 30 ml DAILYPRN PRN PO CONSTIPATION; Start 08/12/16 at 18:45; Stop 09/11/16 at 18:44 Multivitamins (Theragram-M) 1 tab DAILY PO Last administered on 08/19/16 08:03 ; Start 08/13/16 at 09:00; Stop 09/12/16 at 08:59 Mupirocin (Bactroban 2% Ointment) 1 dose BID PRN TOP REDNESS/IRRITATION; Start 08/13/16 at 09:00; Stop 09/12/16 at 08:59 Nicotine (Nicorette) 2 mg Q2HP PRN PO NICOTINE WITHDRAWAL Last administered on 08/19/16 10:07; Start 08/12/16 at 18:45; Stop 09/11/16 at 18:44 Prazosin HCl (Minipress) 1 mg QHS PO Last administered on 08/18/16 20:05; Start 08/16/16 at 21:00; Stop 09/15/16 at 20:59 Quetiapine Fumarate (SEROquel XR) 200 mg DAILY@1830 PO Last administered on 08/18/16 18:05; Start 08/18/16 at 18:30; Stop 09/17/16 at 18:29 Quetiapine Fumarate (SEROquel XR) 200 mg PC PO ; Start 08/18/16 at 18:00; Stop 09/17/16 at 17:59; Status UNV Quetiapine Fumarate (SEROquel XR) 200 mg QHS PO Last administered on 20:32; Start 08/17/16 at 21:00; Stop 08/18/16 at 09:38; Status DC Quetiapine Fumarate (SEROquel) 50 mg Q8HP PRN PO ANXIETY/AGITATION Last administered on 08/19/16 10:58; Start 08/13/16 at 09:15; Stop 09/12/16 at 09:14 Quetiapine Fumarate (Seroquel Xr) 50 mg QHS PO Last administered on 08/13/16 20:38; Start 08/13/16 at 21:00; Stop 08/14/16 at 12:36; Status DC Quetiapine Fumarate (Seroquel Xr) 100 mg DAILY@1800 PO Last administered on 18:00; Start 08/14/16 at 18:00; Stop 08/17/16 at 10:26; Status DC Sertraline HCl (Zoloft) 25 mg QAM PO Last administered on 08/14/16 09:22; Start 08/13/16 at 09:00; Stop 08/14/16 at 12:41; Status DC Sertraline HCl (Zoloft) 50 mg DAILY PO Last administered on 08/19/16 08:03; Start 08/15/16 at 09:00; Stop 09/14/16 at 08:59 Thiamine HCl (Thiamine HCl) 100 mg QAM PO Last administered on 08/19/16 08:03 ; Start 08/13/16 at 09:00; Stop 09/12/16 at 08:59 Trazodone HCl (Desyrel) 50 mg QHSP PRN PO INSOMNIA; Start 08/12/16 at 18:45; Stop 09/11/16 at 18:44; Status Cancel Allergies Coded Allergies: Penicillins (Verified Allergy, Intermediate, rash, 05/29/12) Penicillins Cross Reactors (Verified Allergy, Intermediate, rash, 05/29/12) Latex (Verified Allergy, Mild, rash, 05/29/12) Dee Morley Aug 19, 2016 13:50
[2016-08-19] MEDS: busPIRone 5 MG TAB PO SCH ×2 (15:42→20:04)
[2016-08-19] MEDS: QUEtiapine FUMARATE **XR** 200MG TABLET PO SCH (17:39)
[2016-08-19 18:07] VITALS: BP 122/75
[2016-08-19] MEDS: PRAZOSIN 1 MG CAP PO SCH (20:05)
[2016-08-20 06:39] VITALS: BP 124/67
[2016-08-20] MEDS: busPIRone 5 MG TAB PO SCH ×3 (08:09→20:35)
[2016-08-20] MEDS: THIAMINE 100 MG TAB PO SCH (08:09)
[2016-08-20] MEDS: MULTIVITAMINS/MINERALS THERAP 1 TAB PO SCH (08:09)
[2016-08-20] MEDS: NICOTINE POLACRILEX 2 MG GUM PO PRN ×2 (08:09→13:01)
[2016-08-20] MEDS: FOLIC ACID 1 MG TAB PO SCH (08:09)
[2016-08-20] MEDS: SERTRALINE HCL 50 MG TAB PO SCH (08:09)
[2016-08-20] MEDS: hydrOXYzine 25 MG TAB PO PRN (10:16)
[2016-08-20] MEDS: QUEtiapine FUMARATE 50 MG TAB PO PRN (13:01)
--- NOTE | 2016-08-20 15:08 | MHIPNPDOC ---
[facility] Progress Note Progress Note DATE OF SERVICE: 08/20/16 HISTORY: day 9 of admission following serious overdose with xanax and prozac. VITAL SIGNS: See below. NEW TEST RESULTS: na CURRENT MEDICATIONS: See below. MENTAL STATUS EXAMINATION: Patient is a 46-year old male, who is wearing hospital attire, bald, makes fair eye contact, keeps to self but is pleasant on approach. Speech: Is coherent. Language skills are good. Thought processes including: logical and goal directed. Thought content: appropriate Abstract reasoning, and computation: good. Description of associations: good. Description of abnormal or psychotic thoughts: no psychotic symptoms to report. Pt denies intent or plan of homicide or suicide. Pt able to identify reasons to stay alive including daughter, , God's plan for him. Judgment: limited Insight: good. Orientation: oriented to person, place, time and situation. Recent and remote memory: intact. Attention span and concentration: good Fund of knowledge: full. Mood: euthymic. Affect: congruent. DIAGNOSES: 1. MDD severe, recurrent without psychotic features. 2. Alcohol abuse 3. adjustment disorder with depressed mood and anxiety. ASSESSMENT:pt presents with less anxiety today. nightmares not as problematic as night before. appetite is good. denies n/v/d or constipation. Interacting with others appropriately. Out of room more and more visible in the milieu. Future oriented and hopeful about his opportunity to attend rehab. Adhering to meds and unit protocols. No behavior challenges on the unit. MANAGEMENT PLAN: continue with Seroquel XR at evening meal, continue Buspar tid , prn Vistaril, and Sertraline, encourage group activities and less time in room. TIME SPENT: 30 minutes. Vital Signs Vital Signs Date Time Temp Pulse Resp B/P (MAP) Pulse Ox O2 Delivery O2 Flow Rate FiO2 08/20/16 06:39 98.7 59 18 124/67 (86) Current Medications Current Medications Acetaminophen (Tylenol Tab) 650 mg Q6HP PRN PO HEADACHE or DISCOMFORT Last administered on 08/14/16t 17:39; Start 08/12/16 at 18:45; Stop 09/11/16 at 18:44 Al Hydrox/Mg Hydrox/Simethicone (Mylanta) 30 ml Q4HP PRN PO HEARTBURN/ INDIGESTION; Start 08/12/16 at 18:45; Stop 09/11/16 at 18:44 Buspirone HCl (Buspar) 10 mg TID PO Last administered on 08/19/16 08:03; Start 08/13/16 at 09:00; Stop 08/19/16 at 08:15; Status DC Buspirone HCl (Buspar) 15 mg TID PO Last administered on 08/20/16 08:09; Start 08/19/16 at 16:00; Stop 09/18/16 at 15:59 Chlordiazepoxide (Librium) 25 mg TIDP PRN PO WITHDRAWAL SYMPTOMS; Start at 18:45; Stop 08/19/16 at 18:44; Status Cancel Folic Acid (Folic Acid) 1 mg QAM PO Last administered on 08/20/16 08:09; Start 08/13/16 at 09:00; Stop 09/12/16 at 08:59 Hydroxyzine HCl (Atarax) 25 mg Q6HP PRN PO ANXIETY Last administered on 10:16; Start 08/13/16 at 09:15; Stop 09/12/16 at 09:14 Levofloxacin (Levaquin) 500 mg DAILY@1800 PO Last administered on 08/18/16 18: 05; Start 08/12/16 at 18:00; Stop 08/19/16 at 17:59; Status DC Magnesium Hydroxide (Milk Of Magnesia) 30 ml DAILYPRN PRN PO CONSTIPATION; Start 08/12/16 at 18:45; Stop 09/11/16 at 18:44 Multivitamins (Theragram-M) 1 tab DAILY PO Last administered on 08/20/16 08:09 ; Start 08/13/16 at 09:00; Stop 09/12/16 at 08:59 Mupirocin (Bactroban 2% Ointment) 1 dose BID PRN TOP REDNESS/IRRITATION; Start 08/13/16 at 09:00; Stop 09/12/16 at 08:59 Nicotine (Nicorette) 2 mg Q2HP PRN PO NICOTINE WITHDRAWAL Last administered on 08/20/16 13:01; Start 08/12/16 at 18:45; Stop 09/11/16 at 18:44 Prazosin HCl (Minipress) 1 mg QHS PO Last administered on 08/18/16 20:05; Start 08/16/16 at 21:00; Stop 08/19/16 at 13:59; Status DC Prazosin HCl (Minipress) 2 mg QHS PO Last administered on 08/19/16 20:05; Start 08/19/16 at 21:00; Stop 09/18/16 at 20:59 Quetiapine Fumarate (SEROquel XR) 200 mg DAILY@1830 PO Last administered on 08/19/16 17:39; Start 08/18/16 at 18:30; Stop 09/17/16 at 18:29 Quetiapine Fumarate (SEROquel XR) 200 mg PC PO ; Start 08/18/16 at 18:00; Stop 09/17/16 at 17:59; Status UNV Quetiapine Fumarate (SEROquel XR) 200 mg QHS PO Last administered on 20:32; Start 08/17/16 at 21:00; Stop 08/18/16 at 09:38; Status DC Quetiapine Fumarate (SEROquel) 50 mg Q8HP PRN PO ANXIETY/AGITATION Last administered on 08/20/16 13:01; Start 08/13/16 at 09:15; Stop 09/12/16 at 09:14 Quetiapine Fumarate (Seroquel Xr) 50 mg QHS PO Last administered on 08/13/16 20:38; Start 08/13/16 at 21:00; Stop 08/14/16 at 12:36; Status DC Quetiapine Fumarate (Seroquel Xr) 100 mg DAILY@1800 PO Last administered on 18:00; Start 08/14/16 at 18:00; Stop 08/17/16 at 10:26; Status DC Sertraline HCl (Zoloft) 25 mg QAM PO Last administered on 08/14/16 09:22; Start 08/13/16 at 09:00; Stop 08/14/16 at 12:41; Status DC Sertraline HCl (Zoloft) 50 mg DAILY PO Last administered on 08/20/16 08:09; Start 08/15/16 at 09:00; Stop 09/14/16 at 08:59 Thiamine HCl (Thiamine HCl) 100 mg QAM PO Last administered on 08/20/16t 08:09 ; Start 08/13/16 at 09:00; Stop 09/12/16 at 08:59 Trazodone HCl (Desyrel) 50 mg QHSP PRN PO INSOMNIA; Start 08/12/16 at 18:45; Stop 09/11/16 at 18:44; Status Cancel Allergies Coded Allergies: Penicillins (Verified Allergy, Intermediate, rash, 05/29/12) Penicillins Cross Reactors (Verified Allergy, Intermediate, rash, 05/29/12) Latex (Verified Allergy, Mild, rash, 05/29/12) Dee Morley Aug 20, 2016 15:08
[2016-08-20] MEDS: QUEtiapine FUMARATE **XR** 200MG TABLET PO SCH (17:50)
[2016-08-20 18:00] VITALS: BP 149/80
[2016-08-20] MEDS: PRAZOSIN 1 MG CAP PO SCH (20:36)
[2016-08-21] MEDS: QUEtiapine FUMARATE 50 MG TAB PO PRN (05:45)
[2016-08-21] MEDS: NICOTINE POLACRILEX 2 MG GUM PO PRN ×3 (05:45→17:42)
[2016-08-21 06:00] VITALS: BP 133/75
[2016-08-21] MEDS: busPIRone 5 MG TAB PO SCH ×3 (08:02→22:15)
[2016-08-21] MEDS: SERTRALINE HCL 50 MG TAB PO SCH (08:02)
[2016-08-21] MEDS: MULTIVITAMINS/MINERALS THERAP 1 TAB PO SCH (08:02)
[2016-08-21] MEDS: THIAMINE 100 MG TAB PO SCH (08:02)
[2016-08-21] MEDS: FOLIC ACID 1 MG TAB PO SCH (08:02)
--- NOTE | 2016-08-21 11:31 | MHIPNPDOC ---
[facility] Progress Note Progress Note DATE OF SERVICE: 08/21/16 HISTORY: day 10 following overdose with neurontin, xanax and prozac VITAL SIGNS: See below. NEW TEST RESULTS: na CURRENT MEDICATIONS: See below. MENTAL STATUS EXAMINATION: Patient is a 46-year old male, who is wearing hospital attire, bald, fair eye contact and cooperative. Speech: Is spontaneous Language skills are intact Thought processes including: normal rate of thoughts, linear Thought content: rational, appropriate, no paranoia noted. Abstract reasoning, and computation: intact. Description of associations: intact. Description of abnormal or psychotic thoughts: not actively contemplating suicide, wants to live, no psychotic symptoms illicited. Judgment: limited Insight: good. Orientation: well oriented x 4. Recent and remote memory: intact Attention span and concentration: poor. Fund of knowledge: average. Mood: depressed. Affect:blunted. DIAGNOSES: 1. MDD severe, recurrent without psychotic features. 2. Alcohol abuse 3. adjustment disorder with depressed mood and anxiety. ASSESSMENT:pt is not attending programming regularly. He is observed in bed with shirt over part of his face. He is more visible on the unit in the afternoon. He is not very interested in our programming and feels he has adequate coping skills because he prays, exercises, reads. Pt understands lying in bed is not beneficial. He anticipates leaving for LT treatment on Wednesday and is not very motivated to do much here until that time. He is adhering to his medication schedule, he eats at meal time and he plays cards socially now and then. He can be observed watching TV at times. He is not a behavior challenge on the unit. he denies thoughts or desire or intent to harm himself in anyway or to harm others. He states he wants to adjust to society and be "a normal person". MANAGEMENT PLAN: no change in meds or observation status. Enc involvement in milieu. Discharge anticipated on WednesdayAugust 26 in the early a.m. TIME SPENT: 15 minutes. Vital Signs Vital Signs Date Time Temp Pulse Resp B/P (MAP) Pulse Ox O2 Delivery O2 Flow Rate FiO2 08/21/16 06:00 97.3 85 18 133/75 (94) Current Medications Current Medications Acetaminophen (Tylenol Tab) 650 mg Q6HP PRN PO HEADACHE or DISCOMFORT Last administered on 08/14/16t 17:39; Start 08/12/16 at 18:45; Stop 09/11/16 at 18:44 Al Hydrox/Mg Hydrox/Simethicone (Mylanta) 30 ml Q4HP PRN PO HEARTBURN/ INDIGESTION; Start 08/12/16 at 18:45; Stop 09/11/16 at 18:44 Buspirone HCl (Buspar) 10 mg TID PO Last administered on 08/19/16 08:03; Start 08/13/16 at 09:00; Stop 08/19/16 at 08:15; Status DC Buspirone HCl (Buspar) 15 mg TID PO Last administered on 08/21/16 08:02; Start 08/19/16 at 16:00; Stop 09/18/16 at 15:59 Chlordiazepoxide (Librium) 25 mg TIDP PRN PO WITHDRAWAL SYMPTOMS; Start at 18:45; Stop 08/19/16 at 18:44; Status Cancel Folic Acid (Folic Acid) 1 mg QAM PO Last administered on 08/21/16 08:02; Start 08/13/16 at 09:00; Stop 09/12/16 at 08:59 Hydroxyzine HCl (Atarax) 25 mg Q6HP PRN PO ANXIETY Last administered on 10:16; Start 08/13/16 at 09:15; Stop 09/12/16 at 09:14 Levofloxacin (Levaquin) 500 mg DAILY@1800 PO Last administered on 08/18/16 18: 05; Start 08/12/16 at 18:00; Stop 08/19/16 at 17:59; Status DC Magnesium Hydroxide (Milk Of Magnesia) 30 ml DAILYPRN PRN PO CONSTIPATION; Start 08/12/16 at 18:45; Stop 09/11/16 at 18:44 Multivitamins (Theragram-M) 1 tab DAILY PO Last administered on 08/21/16 08:02 ; Start 08/13/16 at 09:00; Stop 09/12/16 at 08:59 Mupirocin (Bactroban 2% Ointment) 1 dose BID PRN TOP REDNESS/IRRITATION; Start 08/13/16 at 09:00; Stop 09/12/16 at 08:59 Nicotine (Nicorette) 2 mg Q2HP PRN PO NICOTINE WITHDRAWAL Last administered on 08/21/16 05:45; Start 08/12/16 at 18:45; Stop 09/11/16 at 18:44 Prazosin HCl (Minipress) 1 mg QHS PO Last administered on 08/18/16 20:05; Start 08/16/16 at 21:00; Stop 08/19/16 at 13:59; Status DC Prazosin HCl (Minipress) 2 mg QHS PO Last administered on 08/20/16 20:36; Start 08/19/16 at 21:00; Stop 09/18/16 at 20:59 Quetiapine Fumarate (SEROquel XR) 200 mg DAILY@1830 PO Last administered on 08/20/16 17:50; Start 08/18/16 at 18:30; Stop 09/17/16 at 18:29 Quetiapine Fumarate (SEROquel XR) 200 mg PC PO ; Start 08/18/16 at 18:00; Stop 09/17/16 at 17:59; Status UNV Quetiapine Fumarate (SEROquel XR) 200 mg QHS PO Last administered on 20:32; Start 08/17/16 at 21:00; Stop 08/18/16 at 09:38; Status DC Quetiapine Fumarate (SEROquel) 50 mg Q8HP PRN PO ANXIETY/AGITATION Last administered on 08/21/16 05:45; Start 08/13/16 at 09:15; Stop 09/12/16 at 09:14 Quetiapine Fumarate (Seroquel Xr) 50 mg QHS PO Last administered on 08/13/16 20:38; Start 08/13/16 at 21:00; Stop 08/14/16 at 12:36; Status DC Quetiapine Fumarate (Seroquel Xr) 100 mg DAILY@1800 PO Last administered on 18:00; Start 08/14/16 at 18:00; Stop 08/17/16 at 10:26; Status DC Sertraline HCl (Zoloft) 25 mg QAM PO Last administered on 08/14/16 09:22; Start 08/13/16 at 09:00; Stop 08/14/16 at 12:41; Status DC Sertraline HCl (Zoloft) 50 mg DAILY PO Last administered on 08/21/16 08:02; Start 08/15/16 at 09:00; Stop 09/14/16 at 08:59 Thiamine HCl (Thiamine HCl) 100 mg QAM PO Last administered on 08/21/16 08:02 ; Start 08/13/16 at 09:00; Stop 09/12/16 at 08:59 Trazodone HCl (Desyrel) 50 mg QHSP PRN PO INSOMNIA; Start 08/12/16 at 18:45; Stop 09/11/16 at 18:44; Status Cancel Allergies Coded Allergies: Penicillins (Verified Allergy, Intermediate, rash, 05/29/12) Penicillins Cross Reactors (Verified Allergy, Intermediate, rash, 05/29/12) Latex (Verified Allergy, Mild, rash, 05/29/12) Dee Morley Aug 21, 2016 11:31
[2016-08-21] MEDS: hydrOXYzine 25 MG TAB PO PRN (12:03)
[2016-08-21] MEDS: QUEtiapine FUMARATE **XR** 200MG TABLET PO SCH (17:42)
[2016-08-21 18:19] VITALS: BP 138/74
[2016-08-21] MEDS: PRAZOSIN 1 MG CAP PO SCH (22:16)
[2016-08-22 06:18] VITALS: BP 159/82
[2016-08-22] MEDS: NICOTINE POLACRILEX 2 MG GUM PO PRN ×3 (06:46→18:01)
[2016-08-22] MEDS: hydrOXYzine 25 MG TAB PO PRN (06:46)
[2016-08-22] MEDS: FOLIC ACID 1 MG TAB PO SCH (08:03)
[2016-08-22] MEDS: THIAMINE 100 MG TAB PO SCH (08:03)
[2016-08-22] MEDS: busPIRone 5 MG TAB PO SCH ×3 (08:03→21:15)
[2016-08-22] MEDS: MULTIVITAMINS/MINERALS THERAP 1 TAB PO SCH (08:03)
[2016-08-22] MEDS: SERTRALINE 100 MG TAB PO SCH (08:03)
[2016-08-22] MEDS: QUEtiapine FUMARATE 50 MG TAB PO PRN (13:10)
[2016-08-22 18:00] VITALS: BP 136/76
[2016-08-22] MEDS: QUEtiapine FUMARATE **XR** 200MG TABLET PO SCH (18:01)
[2016-08-22] MEDS: ACETAMINOPHEN TAB 650MG DOSE (2X325MG) PO PRN (18:43)
[2016-08-22] MEDS: PRAZOSIN 1 MG CAP PO SCH (21:15)
[2016-08-23 06:16] VITALS: BP 145/91
[2016-08-23] MEDS: NICOTINE POLACRILEX 2 MG GUM PO PRN ×3 (06:18→20:19)
[2016-08-23] MEDS: busPIRone 5 MG TAB PO SCH ×3 (08:14→20:18)
[2016-08-23] MEDS: MULTIVITAMINS/MINERALS THERAP 1 TAB PO SCH (08:14)
[2016-08-23] MEDS: SERTRALINE 100 MG TAB PO SCH (08:14)
[2016-08-23] MEDS: FOLIC ACID 1 MG TAB PO SCH (08:14)
[2016-08-23] MEDS: THIAMINE 100 MG TAB PO SCH (08:14)
[2016-08-23] MEDS: QUEtiapine FUMARATE **XR** 200MG TABLET PO SCH (18:22)
[2016-08-23 18:30] VITALS: BP 135/77
[2016-08-23] MEDS: PRAZOSIN 1 MG CAP PO SCH (20:18)
[2016-08-23] MEDS: QUEtiapine FUMARATE 50 MG TAB PO PRN (20:19)
[2016-08-24 06:46] VITALS: BP 122/58
[2016-08-24] MEDS: MULTIVITAMINS/MINERALS THERAP 1 TAB PO SCH (08:04)
[2016-08-24] MEDS: busPIRone 5 MG TAB PO SCH ×3 (08:04→20:04)
[2016-08-24] MEDS: hydrOXYzine 25 MG TAB PO PRN ×2 (08:04→16:32)
[2016-08-24] MEDS: FOLIC ACID 1 MG TAB PO SCH (08:04)
[2016-08-24] MEDS: SERTRALINE 100 MG TAB PO SCH (08:05)
[2016-08-24] MEDS: THIAMINE 100 MG TAB PO SCH (08:05)
[2016-08-24] MEDS: QUEtiapine FUMARATE 50 MG TAB PO PRN (11:09)
[2016-08-24] MEDS: NICOTINE POLACRILEX 2 MG GUM PO PRN ×3 (11:09→20:04)
--- NOTE | 2016-08-24 12:25 | MHIPNPDOC ---
[facility] Progress Note Progress Note DATE OF SERVICE: 08/24/16 HISTORY: day 13, pt admitted following intentional drug overdose with SI. VITAL SIGNS: See below. NEW TEST RESULTS: na. CURRENT MEDICATIONS: See below. MENTAL STATUS EXAMINATION: Patient is a 46-year old male, who is wearing hospital attire, bald, adequate hygiene, pleasant. Speech: Is clear, spontaneous Language skills are intact Thought processes including: linear Thought content: appropriate Abstract reasoning, and computation: good. Description of associations: good. Description of abnormal or psychotic thoughts: denies SI. no psychotic symptoms observed or reported. Denies voices & visions., no delusions. Judgment: fair. Insight: good. Orientation: A & O x 4 Recent and remote memory: grossly intact Attention span and concentration: good Fund of knowledge: full. Mood: depressed. Affect: has range. DIAGNOSES: 1. MDD severe, recurrent without psychotic features. 2. Alcohol abuse 3. adjustment disorder with depressed mood and anxiety. ASSESSMENT:pt visible in milieu by mid . Reports a nice visit with and daughter on Wednesday. He asked if could transport to [facility] on Wednesday. Explained we assured parole it would be a bed to bed transfer so he will have to go by ambulance. Frank in Discharge Planning is making the arrangements and will have more details for him later. Ezequiel continues to expressed a depressed mood without Suicide ideation or intent. He is still waking up during the night. However some days he does a good deal of daytime sleeping and this would interfer with his ability to sleep soundly at night. Reminded him of this. We discussed raising the Seroquel XR and he is in agreement with this. Medication risks and benefits reviewed including metabolic syndrome information. MANAGEMENT PLAN: Increase Seroquel XR to 300 mg at 6 p.m. with food, monitor for effectiveness on mood and sleep. Encourage milieu activity. Discharge planned and scheduled for August 26 to [facility]. TIME SPENT: 30 minutes. Vital Signs Vital Signs Date Time Temp Pulse Resp B/P (MAP) Pulse Ox O2 Delivery O2 Flow Rate FiO2 08/24/16 06:46 98.6 68 18 122/58 (79) Current Medications Current Medications Acetaminophen (Tylenol Tab) 650 mg Q6HP PRN PO HEADACHE or DISCOMFORT Last administered on 08/22/16t 18:43; Start 08/12/16 at 18:45; Stop 09/11/16 at 18:44 Al Hydrox/Mg Hydrox/Simethicone (Mylanta) 30 ml Q4HP PRN PO HEARTBURN/ INDIGESTION; Start 08/12/16 at 18:45; Stop 09/11/16 at 18:44 Buspirone HCl (Buspar) 10 mg TID PO Last administered on 08/19/16 08:03; Start 08/13/16 at 09:00; Stop 08/19/16 at 08:15; Status DC Buspirone HCl (Buspar) 15 mg TID PO Last administered on 08/24/16 08:04; Start 08/19/16 at 16:00; Stop 09/18/16 at 15:59 Chlordiazepoxide (Librium) 25 mg TIDP PRN PO WITHDRAWAL SYMPTOMS; Start at 18:45; Stop 08/19/16 at 18:44; Status Cancel Folic Acid (Folic Acid) 1 mg QAM PO Last administered on 08/24/16 08:04; Start 08/13/16 at 09:00; Stop 09/12/16 at 08:59 Hydroxyzine HCl (Atarax) 25 mg Q6HP PRN PO ANXIETY Last administered on 08:04; Start 08/13/16 at 09:15; Stop 09/12/16 at 09:14 Levofloxacin (Levaquin) 500 mg DAILY@1800 PO Last administered on 08/18/16 18: 05; Start 08/12/16 at 18:00; Stop 08/19/16 at 17:59; Status DC Magnesium Hydroxide (Milk Of Magnesia) 30 ml DAILYPRN PRN PO CONSTIPATION; Start 08/12/16 at 18:45; Stop 09/11/16 at 18:44 Multivitamins (Theragram-M) 1 tab DAILY PO Last administered on 08/24/16 08:04 ; Start 08/13/16 at 09:00; Stop 09/12/16 at 08:59 Mupirocin (Bactroban 2% Ointment) 1 dose BID PRN TOP REDNESS/IRRITATION; Start 08/13/16 at 09:00; Stop 09/12/16 at 08:59 Nicotine (Nicorette) 2 mg Q2HP PRN PO NICOTINE WITHDRAWAL Last administered on 08/24/16 11:09; Start 08/12/16 at 18:45; Stop 09/11/16 at 18:44 Prazosin HCl (Minipress) 1 mg QHS PO Last administered on 08/18/16 20:05; Start 08/16/16 at 21:00; Stop 08/19/16 at 13:59; Status DC Prazosin HCl (Minipress) 2 mg QHS PO Last administered on 08/23/16 20:18; Start 08/19/16 at 21:00; Stop 09/18/16 at 20:59 Quetiapine Fumarate (SEROquel XR) 200 mg DAILY@1830 PO Last administered on 08/23/16 18:22; Start 08/18/16 at 18:30; Stop 09/17/16 at 18:29 Quetiapine Fumarate (SEROquel XR) 200 mg PC PO ; Start 08/18/16 at 18:00; Stop 09/17/16 at 17:59; Status UNV Quetiapine Fumarate (SEROquel XR) 200 mg QHS PO Last administered on 20:32; Start 08/17/16 at 21:00; Stop 08/18/16 at 09:38; Status DC Quetiapine Fumarate (SEROquel) 50 mg Q8HP PRN PO ANXIETY/AGITATION Last administered on 08/24/16 11:09; Start 08/13/16 at 09:15; Stop 09/12/16 at 09:14 Quetiapine Fumarate (Seroquel Xr) 50 mg QHS PO Last administered on 08/13/16 20:38; Start 08/13/16 at 21:00; Stop 08/14/16 at 12:36; Status DC Quetiapine Fumarate (Seroquel Xr) 100 mg DAILY@1800 PO Last administered on 18:00; Start 08/14/16 at 18:00; Stop 08/17/16 at 10:26; Status DC Sertraline HCl (Zoloft) 25 mg QAM PO Last administered on 08/14/16 09:22; Start 08/13/16 at 09:00; Stop 08/14/16 at 12:41; Status DC Sertraline HCl (Zoloft) 50 mg DAILY PO Last administered on 08/21/16 08:02; Start 08/15/16 at 09:00; Stop 08/21/16 at 11:51; Status DC Sertraline HCl (Zoloft) 100 mg DAILY PO Last administered on 08/24/16 08:05; Start 08/22/16 at 09:00; Stop 09/21/16 at 08:59 Thiamine HCl (Thiamine HCl) 100 mg QAM PO Last administered on 08/24/16 08:05; Start 08/13/16 at 09:00; Stop 09/12/16 at 08:59 Trazodone HCl (Desyrel) 50 mg QHSP PRN PO INSOMNIA; Start 08/12/16 at 18:45; Stop 09/11/16 at 18:44; Status Cancel Allergies Coded Allergies: Penicillins (Verified Allergy, Intermediate, rash, 05/29/12) Penicillins Cross Reactors (Verified Allergy, Intermediate, rash, 05/29/12) Latex (Verified Allergy, Mild, rash, 05/29/12) Dee Morley Aug 24, 2016 12:25
[2016-08-24] MEDS: QUEtiapine 300 MG XR TABLET(SEROQUEL XR) PO SCH (17:45)
[2016-08-24 18:03] VITALS: BP 117/64
[2016-08-24] MEDS: PRAZOSIN 1 MG CAP PO SCH (20:04)
[2016-08-25 06:32] VITALS: BP 138/69
[2016-08-25] MEDS: MULTIVITAMINS/MINERALS THERAP 1 TAB PO SCH (08:13)
[2016-08-25] MEDS: THIAMINE 100 MG TAB PO SCH (08:13)
[2016-08-25] MEDS: NICOTINE POLACRILEX 2 MG GUM PO PRN ×3 (08:13→15:18)
[2016-08-25] MEDS: SERTRALINE 100 MG TAB PO SCH (08:13)
[2016-08-25] MEDS: busPIRone 5 MG TAB PO SCH ×3 (08:14→19:57)
[2016-08-25] MEDS: FOLIC ACID 1 MG TAB PO SCH (08:14)
--- NOTE | 2016-08-25 09:08 | MHIPNPDOC ---
[facility] Progress Note Progress Note DATE OF SERVICE: 08/25/16 HISTORY: day 14 of admission, following overdose with SI. VITAL SIGNS: See below. NEW TEST RESULTS: na CURRENT MEDICATIONS: See below. MENTAL STATUS EXAMINATION: Patient is a 46 year old male, who is bald wearing hospital attire, watching TV. Speech: Is clear and spontaneous. Language skills are good.good Thought processes including:logical , linear Thought content: family. Abstract reasoning, and computation: good. Description of associations: good. Description of abnormal or psychotic thoughts: no psychosis, denies plan or intent to commit suicide. has protective factors of and young daughter, would like to resume working, wants to "feel normal". Judgment: limited. Insight: fair. Orientation:good in all spheres. Recent and remote memory: intact Attention span and concentration: adequate Fund of knowledge: good Mood:euthyic. Affect: congruent DIAGNOSES: 1. MDD severe, recurrent without psychotic features. 2. Alcohol abuse 3. adjustment disorder with depressed mood and anxiety. ASSESSMENT:pt is anticipating leaving the hospital tomorrow. He is in good spirits. He is spending more time in the milieu. He watches TV and interacts well with peers. Pt slept through the night with the increase in Seroquel XR to 300 mg at 1800 hours. MANAGEMENT PLAN: continue observation, no medication changes. Pt's discharge was completed so his paperwork is ready to go for discharge tomorrow. terminated with pt who was courteous and thankful. TIME SPENT: 15 minutes. Vital Signs Vital Signs Date Time Temp Pulse Resp B/P (MAP) Pulse Ox O2 Delivery O2 Flow Rate FiO2 08/25/16 06:32 98.4 65 18 138/69 (92) Current Medications Current Medications Acetaminophen (Tylenol Tab) 650 mg Q6HP PRN PO HEADACHE or DISCOMFORT Last administered on 08/22/16 18:43; Start 08/12/16 at 18:45; Stop 09/11/16 at 18:44 Al Hydrox/Mg Hydrox/Simethicone (Mylanta) 30 ml Q4HP PRN PO HEARTBURN/ INDIGESTION; Start 08/12/16 at 18:45; Stop 09/11/16 at 18:44 Buspirone HCl (Buspar) 10 mg TID PO Last administered on 08/19/16 08:03; Start 08/13/16 at 09:00; Stop 08/19/16 at 08:15; Status DC Buspirone HCl (Buspar) 15 mg TID PO Last administered on 08/25/16 08:14; Start 08/19/16 at 16:00; Stop 09/18/16 at 15:59 Chlordiazepoxide (Librium) 25 mg TIDP PRN PO WITHDRAWAL SYMPTOMS; Start at 18:45; Stop 08/19/16 at 18:44; Status Cancel Folic Acid (Folic Acid) 1 mg QAM PO Last administered on 08/25/16 08:14; Start 08/13/16 at 09:00; Stop 09/12/16 at 08:59 Hydroxyzine HCl (Atarax) 25 mg Q6HP PRN PO ANXIETY Last administered on 16:32; Start 08/13/16 at 09:15; Stop 09/12/16 at 09:14 Levofloxacin (Levaquin) 500 mg DAILY@1800 PO Last administered on 08/18/16 18: 05; Start 08/12/16 at 18:00; Stop 08/19/16 at 17:59; Status DC Magnesium Hydroxide (Milk Of Magnesia) 30 ml DAILYPRN PRN PO CONSTIPATION; Start 08/12/16 at 18:45; Stop 09/11/16 at 18:44 Multivitamins (Theragram-M) 1 tab DAILY PO Last administered on 08/25/16 08:13 ; Start 08/13/16 at 09:00; Stop 09/12/16 at 08:59 Mupirocin (Bactroban 2% Ointment) 1 dose BID PRN TOP REDNESS/IRRITATION; Start 08/13/16 at 09:00; Stop 09/12/16 at 08:59 Nicotine (Nicorette) 2 mg Q2HP PRN PO NICOTINE WITHDRAWAL Last administered on 08/25/16 08:13; Start 08/12/16 at 18:45; Stop 09/11/16 at 18:44 Prazosin HCl (Minipress) 1 mg QHS PO Last administered on 08/18/16 20:05; Start 08/16/16 at 21:00; Stop 08/19/16 at 13:59; Status DC Prazosin HCl (Minipress) 2 mg QHS PO Last administered on 08/24/16 20:04; Start 08/19/16 at 21:00; Stop 09/18/16 at 20:59 Quetiapine Fumarate (SEROquel XR) 200 mg DAILY@1830 PO Last administered on 08/23/16 18:22; Start 08/18/16 at 18:30; Stop 08/24/16 at 12:32; Status DC Quetiapine Fumarate (SEROquel XR) 200 mg PC PO ; Start 08/18/16 at 18:00; Stop 09/17/16 at 17:59; Status UNV Quetiapine Fumarate (SEROquel XR) 200 mg QHS PO Last administered on 20:32; Start 08/17/16 at 21:00; Stop 08/18/16 at 09:38; Status DC Quetiapine Fumarate (SEROquel XR) 300 mg DAILY@1800 PO Last administered on 08/24/16 17:45; Start 08/24/16 at 18:00; Stop 09/23/16 at 17:59 Quetiapine Fumarate (SEROquel) 50 mg Q8HP PRN PO ANXIETY/AGITATION Last administered on 08/24/16 11:09; Start 08/13/16 at 09:15; Stop 09/12/16 at 09:14 Quetiapine Fumarate (Seroquel Xr) 50 mg QHS PO Last administered on 08/13/16 20:38; Start 08/13/16 at 21:00; Stop 08/14/16 at 12:36; Status DC Quetiapine Fumarate (Seroquel Xr) 100 mg DAILY@1800 PO Last administered on 18:00; Start 08/14/16 at 18:00; Stop 08/17/16 at 10:26; Status DC Sertraline HCl (Zoloft) 25 mg QAM PO Last administered on 08/14/16 09:22; Start 08/13/16 at 09:00; Stop 08/14/16 at 12:41; Status DC Sertraline HCl (Zoloft) 50 mg DAILY PO Last administered on 08/21/16 08:02; Start 08/15/16 at 09:00; Stop 08/21/16 at 11:51; Status DC Sertraline HCl (Zoloft) 100 mg DAILY PO Last administered on 08/25/16 08:13; Start 08/22/16 at 09:00; Stop 09/21/16 at 08:59 Thiamine HCl (Thiamine HCl) 100 mg QAM PO Last administered on 08/25/16 08:13; Start 08/13/16 at 09:00; Stop 09/12/16 at 08:59 Trazodone HCl (Desyrel) 50 mg QHSP PRN PO INSOMNIA; Start 08/12/16 at 18:45; Stop 09/11/16 at 18:44; Status Cancel Allergies Coded Allergies: Penicillins (Verified Allergy, Intermediate, rash, 05/29/12) Penicillins Cross Reactors (Verified Allergy, Intermediate, rash, 05/29/12) Latex (Verified Allergy, Mild, rash, 05/29/12) Dee Morley Aug 25, 2016 09:08
[2016-08-25] MEDS: hydrOXYzine 25 MG TAB PO PRN (11:50)
[2016-08-25] MEDS: QUEtiapine 300 MG XR TABLET(SEROQUEL XR) PO SCH (17:58)
[2016-08-25 18:00] VITALS: BP 125/84
[2016-08-25 19:58] VITALS: BP 138/69
[2016-08-25] MEDS: PRAZOSIN 1 MG CAP PO SCH (19:58)
[2016-08-26 06:54] VITALS: BP 126/67
[2016-08-26] MEDS: SERTRALINE 100 MG TAB PO SCH (08:04)
[2016-08-26] MEDS: busPIRone 5 MG TAB PO SCH (08:04)
[2016-08-26] MEDS: MULTIVITAMINS/MINERALS THERAP 1 TAB PO SCH (08:04)
[2016-08-26] MEDS: FOLIC ACID 1 MG TAB PO SCH (08:04)
[2016-08-26] MEDS: THIAMINE 100 MG TAB PO SCH (08:04)
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
== END 2016-08-26 08:05 | DRG 751 ==
LOC: M PSY 17:30
PROVIDERS: ADMIT Psychiatry & Neurology Psychiatry; ATTEND Psychiatry & Neurology Psychiatry
DX: F33.2 Major depressive disorder, recurrent severe without psychotic features (principal); E78.1 Pure hyperglyceridemia; F41.0 Panic disorder [episodic paroxysmal anxiety]; G43.709 Chronic migraine without aura, not intractable, without status migrainosus; F43.23 Adjustment disorder with mixed anxiety and depressed mood; F17.210 Nicotine dependence, cigarettes, uncomplicated; G47.00 Insomnia, unspecified; Z65.2 Problems related to release from prison; Z91.5 Personal history of self-harm; Z81.8 Family history of other mental and behavioral disorders; Z87.81 Personal history of (healed) traumatic fracture; F10.20 Alcohol dependence, uncomplicated; Z87.820 Personal history of traumatic brain injury; Z79.899 Other long term (current) drug therapy; Z88.0 Allergy status to penicillin; Z91.040 Latex allergy status

== ENCOUNTER 2017-07-03 13:13 | Emergency (ER) | payer MEDICAID, SELFPAY ==
[2017-07-03] MEDS: NALOXONE INJ 2 MG/2 ML SYRINGE (J2310) IV (13:19)
[2017-07-03 13:26] LABS: HEMATOCRIT 43.9 % (42.0-52.0); HEMOGLOBIN 15.4 g/dl (13.5-17.5); MEAN CORPUSCULAR HEMOGLOBIN 31.3 pg (27.0-33.0); MEAN CORPUSCULAR HGB CONC 35.1 g/dl (32.0-36.5); MEAN CORPUSCULAR VOLUME 89.2 fl (80.0-96.0); PLATELET COUNT, AUTOMATED 248 10^3/uL (150-450); RED BLOOD COUNT 4.92 10^6/uL (4.30-6.10); RED CELL DISTRIBUTION WIDTH 12.8 % (11.5-14.5); WHITE BLOOD COUNT 10.3 10^3/uL (4.0-10.0)
[2017-07-03 13:59] LABS: AMPHETAMINES LEVEL URINE NEGATIVE (NEGATIVE); BARBITURATES URINE NEGATIVE (NEGATIVE); BENZODIAZEPINES URINE NEGATIVE (NEGATIVE); CANNABINOIDS URINE NEGATIVE (NEGATIVE); COCAINE METABOLITE URINE NEGATIVE (NEGATIVE); METHADONE URINE NEGATIVE (NEGATIVE); OPIATES URINE NEGATIVE (NEGATIVE); PHENCYCLIDINE URINE NEGATIVE (NEGATIVE)
[2017-07-03 14:01] LABS: ACETAMINOPHEN LEVEL < 2.0 UG/ML (10.0-30.0); ALBUMIN/GLOBULIN RATIO 1.33 (1.00-1.93); ALKALINE PHOSPHATASE 87 U/L (45-117); ALT/SGPT 23 U/L (12-78); ANION GAP 10 MEQ/L (8-16); AST/SGOT 21 U/L (7-37); BILIRUBIN,DIRECT < 0.1 MG/DL (0.0-0.2); BILIRUBIN,TOTAL 0.2 MG/DL (0.2-1.0); BLOOD UREA NITROGEN 13 MG/DL (7-18); CALCIUM LEVEL 8.1 MG/DL (8.5-10.1); CARBON DIOXIDE LEVEL 23 MEQ/L (21-32); CHLORIDE LEVEL 113 MEQ/L (98-107); CREATININE FOR GFR 0.98 MG/DL (0.70-1.30); ETHYL ALCOHOL (ETHANOL) 0.326 % (0.000-0.010); GLOMERULAR FILTRATION RATE > 60.0 (>60); GLUCOSE, FASTING 67 MG/DL (70-100); POTASSIUM SERUM 3.5 MEQ/L (3.5-5.1); SODIUM LEVEL 146 MEQ/L (136-145)
[2017-07-03] MEDS: NS 1,000 ML IV (14:02)
== END 2017-07-04 01:53 | disposition home or self-care (01) ==
LOC: M ED 07-04 01:53
DX: F10.10 Alcohol abuse, uncomplicated (principal); I10 Essential (primary) hypertension; F90.9 Attention-deficit hyperactivity disorder, unspecified type; F17.200 Nicotine dependence, unspecified, uncomplicated; Z91.040 Latex allergy status; Z88.0 Allergy status to penicillin
CPT/HCPCS: J2310

== ENCOUNTER 2017-07-07 12:21 | Inpatient (IN) | payer MEDICAID ==
[2017-07-07 13:40] LABS: HEMATOCRIT 43.6 % (42.0-52.0); HEMOGLOBIN 14.9 g/dl (13.5-17.5); MEAN CORPUSCULAR HGB CONC 34.2 g/dl (32.0-36.5); MEAN CORPUSCULAR VOLUME 90.6 fl (80.0-96.0); PLATELET COUNT, AUTOMATED 219 10^3/uL (150-450); RED BLOOD COUNT 4.81 10^6/uL (4.30-6.10); RED CELL DISTRIBUTION WIDTH 12.8 % (11.5-14.5); WHITE BLOOD COUNT 7.7 10^3/uL (4.0-10.0)
[2017-07-07 14:01] LABS: ACETAMINOPHEN LEVEL 2.2 UG/ML (10.0-30.0); ALBUMIN 3.9 GM/DL (3.2-5.2); ALBUMIN/GLOBULIN RATIO 1.34 (1.00-1.93); ALKALINE PHOSPHATASE 87 U/L (45-117); ALT/SGPT 23 U/L (12-78); ANION GAP 5 MEQ/L (8-16); AST/SGOT 22 U/L (7-37); BILIRUBIN,DIRECT < 0.1 MG/DL (0.0-0.2); BILIRUBIN,TOTAL 0.2 MG/DL (0.2-1.0); BLOOD UREA NITROGEN 21 MG/DL (7-18); CALCIUM LEVEL 8.6 MG/DL (8.5-10.1); CARBON DIOXIDE LEVEL 27 MEQ/L (21-32); CHLORIDE LEVEL 108 MEQ/L (98-107); ETHYL ALCOHOL (ETHANOL) 0.003 % (0.000-0.010); GLOMERULAR FILTRATION RATE > 60.0 (>60); GLUCOSE, FASTING 132 MG/DL (70-100); POTASSIUM SERUM 4.6 MEQ/L (3.5-5.1); SALICYLATE LEVEL 3.4 MG/DL (5.0-30.0); SODIUM LEVEL 140 MEQ/L (136-145); TOTAL PROTEIN 6.8 GM/DL (6.4-8.2)
[2017-07-07 14:04] LABS: AMPHETAMINES LEVEL URINE NEGATIVE (NEGATIVE); BARBITURATES URINE NEGATIVE (NEGATIVE); BENZODIAZEPINES URINE NEGATIVE (NEGATIVE); CANNABINOIDS URINE POSITIVE (NEGATIVE); COCAINE METABOLITE URINE NEGATIVE (NEGATIVE); METHADONE URINE NEGATIVE (NEGATIVE); OPIATES URINE NEGATIVE (NEGATIVE); PHENCYCLIDINE URINE NEGATIVE (NEGATIVE)
[2017-07-07] MEDS ORDERED: MAALOX 30 ML SUSP *UDC PO (18:00)
[2017-07-07] MEDS ORDERED: MOM 30ML SUSPENSION UDC PO (18:00)
[2017-07-08] MEDS ORDERED: NICOTINE 21MG/24HR 1 EA TRANSDERMAL TD (11:15)
[2017-07-08] MEDS: LevoFLOXacin 750 MG TABLET PO (11:22)
[2017-07-08] MEDS: VENLAFAXINE **XR** 75MG CAPSULE PO (11:23)
[2017-07-08] MEDS: hydrOXYzine 50 MG TAB PO (17:42)
[2017-07-08] MEDS: traZODone 50 MG TAB PO (22:09)
[2017-07-09] MEDS: LevoFLOXacin 750 MG TABLET PO (06:12)
[2017-07-09 07:15] LABS: HEMATOCRIT 44.9 % (42.0-52.0); HEMOGLOBIN 15.4 g/dl (13.5-17.5); MEAN CORPUSCULAR HGB CONC 34.3 g/dl (32.0-36.5); MEAN CORPUSCULAR VOLUME 90.5 fl (80.0-96.0); PLATELET COUNT, AUTOMATED 213 10^3/uL (150-450); RED BLOOD COUNT 4.96 10^6/uL (4.30-6.10); WHITE BLOOD COUNT 7.7 10^3/uL (4.0-10.0)
[2017-07-09 07:44] LABS: ALBUMIN 3.5 GM/DL (3.2-5.2); ALBUMIN/GLOBULIN RATIO 0.95 (1.00-1.93); ALKALINE PHOSPHATASE 81 U/L (45-117); ALT/SGPT 19 U/L (12-78); ANION GAP 8 MEQ/L (8-16); AST/SGOT 11 U/L (7-37); BILIRUBIN,TOTAL 0.3 MG/DL (0.2-1.0); BLOOD UREA NITROGEN 22 MG/DL (7-18); CALCIUM LEVEL 8.7 MG/DL (8.5-10.1); CARBON DIOXIDE LEVEL 23 MEQ/L (21-32); CHLORIDE LEVEL 110 MEQ/L (98-107); CHOLESTEROL LEVEL 143 MG/DL (<200); CHOLESTEROL RISK RATIO 2.698 (<5); CREATININE FOR GFR 1.06 MG/DL (0.70-1.30); GLOMERULAR FILTRATION RATE > 60.0 (>60); GLUCOSE, FASTING 117 MG/DL (70-100); HDL CHOLESTEROL 53 MG/DL (>40); LDL CHOLESTEROL 48.6 MG/DL (<100); NON-HDL-C 90 MG/DL; POTASSIUM SERUM 3.9 MEQ/L (3.5-5.1); SODIUM LEVEL 141 MEQ/L (136-145); TOTAL PROTEIN 7.2 GM/DL (6.4-8.2); TRIGLYCERIDES LEVEL 207 MG/DL (<150)
[2017-07-09] MEDS: VENLAFAXINE **XR** 75MG CAPSULE PO (08:57)
[2017-07-09] MEDS: OLANZapine ORAL DISINTEGRATING TAB 5MG PO (10:25)
[2017-07-09] MEDS: traZODone 50 MG TAB PO (20:16)
[2017-07-09] MEDS: ACETAMINOPHEN TAB 650MG DOSE (2X325MG) PO (20:17)
[2017-07-10] MEDS: LevoFLOXacin 750 MG TABLET PO (06:02)
[2017-07-10] MEDS: NICOTINE POLACRILEX 2 MG GUM PO ×2 (08:36→16:24)
[2017-07-10] MEDS: OLANZapine ORAL DISINTEGRATING TAB 5MG PO ×2 (08:36→21:11)
[2017-07-10] MEDS: VENLAFAXINE **XR** 75MG CAPSULE PO (08:37)
[2017-07-10] MEDS: hydrOXYzine 25 MG TAB PO (18:16)
[2017-07-10] MEDS: traZODone 50 MG TAB PO (20:48)
[2017-07-11] MEDS: OLANZapine ORAL DISINTEGRATING TAB 5MG PO ×4 (05:11→23:04)
[2017-07-11] MEDS: ACETAMINOPHEN TAB 650MG DOSE (2X325MG) PO (05:11)
[2017-07-11] MEDS: LevoFLOXacin 750 MG TABLET PO (06:03)
[2017-07-11] MEDS: NICOTINE POLACRILEX 2 MG GUM PO ×3 (08:29→20:43)
[2017-07-11] MEDS: VENLAFAXINE **XR** 75MG CAPSULE PO (08:29)
[2017-07-11] MEDS: hydrOXYzine 25 MG TAB PO ×2 (08:30→16:13)
[2017-07-11] MEDS ORDERED: PILL CRUSHER/CUTTER 1 EACH XX (11:15)
[2017-07-11] MEDS: GABAPENTIN 100 MG CAP PO (19:38)
[2017-07-11] MEDS: traZODone 50 MG TAB PO (20:00)
[2017-07-11] MEDS: ARIPiprazole 15 MG TAB (AbiLIFY) PO (20:00)
[2017-07-12] MEDS: hydrOXYzine 25 MG TAB PO ×4 (00:49→21:43)
[2017-07-12] MEDS: OLANZapine ORAL DISINTEGRATING TAB 5MG PO ×3 (05:09→17:54)
[2017-07-12] MEDS: ACETAMINOPHEN TAB 650MG DOSE (2X325MG) PO (05:11)
[2017-07-12] MEDS: LevoFLOXacin 750 MG TABLET PO (06:01)
[2017-07-12] MEDS: VENLAFAXINE **XR** 75MG CAPSULE PO (08:04)
[2017-07-12] MEDS: ARIPiprazole 15 MG TAB (AbiLIFY) PO (08:04)
[2017-07-12] MEDS: GABAPENTIN 100 MG CAP PO ×3 (08:04→20:50)
[2017-07-12] MEDS: NICOTINE POLACRILEX 2 MG GUM PO ×3 (09:21→21:45)
[2017-07-12] MEDS: ARIPiprazole 2 MG TAB PO (10:02)
[2017-07-12] MEDS: ARIPiprazole 10 MG TAB PO (20:50)
[2017-07-12] MEDS: diphenhydrAMINE CREAM 30GM TOP (21:08)
[2017-07-12] MEDS: traZODone 50 MG TAB PO (21:43)
[2017-07-13] MEDS: LevoFLOXacin 750 MG TABLET PO (06:29)
[2017-07-13] MEDS: NICOTINE POLACRILEX 2 MG GUM PO ×4 (07:07→17:54)
[2017-07-13] MEDS: OLANZapine ORAL DISINTEGRATING TAB 5MG PO ×2 (08:02→14:31)
[2017-07-13] MEDS: GABAPENTIN 100 MG CAP PO ×3 (08:02→20:10)
[2017-07-13] MEDS: ARIPiprazole 10 MG TAB PO ×2 (08:03→20:10)
[2017-07-13] MEDS: hydrOXYzine 25 MG TAB PO ×2 (11:32→17:53)
[2017-07-13] MEDS: QUEtiapine FUMARATE 50 MG TAB PO (19:47)
[2017-07-13] MEDS: traZODone 50 MG TAB PO (20:10)
[2017-07-14] MEDS: OLANZapine ORAL DISINTEGRATING TAB 5MG PO (04:15)
[2017-07-14] MEDS: NICOTINE POLACRILEX 2 MG GUM PO ×2 (04:19→08:27)
[2017-07-14] MEDS: LevoFLOXacin 750 MG TABLET PO (05:44)
[2017-07-14] MEDS: ARIPiprazole 10 MG TAB PO (07:57)
[2017-07-14] MEDS: GABAPENTIN 100 MG CAP PO (07:58)
[2017-07-14] MEDS: hydrOXYzine 25 MG TAB PO (08:27)
== END 2017-07-14 09:20 | DRG 751 ==
LOC: M ED 12:21 → M ED INP 17:55 → M PSY 21:52
DX: F33.2 Major depressive disorder, recurrent severe without psychotic features (principal); R45.851 Suicidal ideations; F41.0 Panic disorder [episodic paroxysmal anxiety]; F90.9 Attention-deficit hyperactivity disorder, unspecified type; F10.20 Alcohol dependence, uncomplicated; Z88.0 Allergy status to penicillin; Z91.040 Latex allergy status; Z79.899 Other long term (current) drug therapy; F17.200 Nicotine dependence, unspecified, uncomplicated; G43.909 Migraine, unspecified, not intractable, without status migrainosus

== ENCOUNTER → 2017-08-10 | Outpatient (REF) | payer OTHER, MEDICAID ==
[2017-08-10 17:52] LABS: LITHIUM LEVEL 0.38 MEQ/L (0.60-1.20)
== END ==
LOC: M LAB REF 12:45
DX: Z51.81 Encounter for therapeutic drug level monitoring (principal)
CPT/HCPCS: 80178

== ENCOUNTER 2017-11-30 23:07 | Inpatient (IN) | payer MEDICAID, OTHER, SELFPAY ==
[2017-12-01 00:42] LABS: AMPHETAMINES LEVEL URINE NEGATIVE (NEGATIVE); BARBITURATES URINE NEGATIVE (NEGATIVE); BENZODIAZEPINES URINE NEGATIVE (NEGATIVE); CANNABINOIDS URINE NEGATIVE (NEGATIVE); COCAINE METABOLITE URINE NEGATIVE (NEGATIVE); METHADONE URINE NEGATIVE (NEGATIVE); OPIATES URINE NEGATIVE (NEGATIVE); PHENCYCLIDINE URINE NEGATIVE (NEGATIVE)
[2017-12-01 00:53] LABS: HEMATOCRIT 41.2 % (42.0-52.0); HEMOGLOBIN 14.2 g/dl (13.5-17.5); MEAN CORPUSCULAR HEMOGLOBIN 30.9 pg (27.0-33.0); MEAN CORPUSCULAR HGB CONC 34.5 g/dl (32.0-36.5); MEAN CORPUSCULAR VOLUME 89.8 fl (80.0-96.0); PLATELET COUNT, AUTOMATED 232 10^3/uL (150-450); RED BLOOD COUNT 4.59 10^6/uL (4.30-6.10); RED CELL DISTRIBUTION WIDTH 12.2 % (11.5-14.5); WHITE BLOOD COUNT 8.3 10^3/uL (4.0-10.0)
[2017-12-01 01:21] LABS: ACETAMINOPHEN LEVEL < 2.0 UG/ML (10.0-30.0); ALBUMIN 3.9 GM/DL (3.2-5.2); ALBUMIN/GLOBULIN RATIO 1.39 (1.00-1.93); ALKALINE PHOSPHATASE 80 U/L (45-117); ALT/SGPT 19 U/L (12-78); ANION GAP 8 MEQ/L (8-16); AST/SGOT 17 U/L (7-37); BILIRUBIN,DIRECT < 0.1 MG/DL (0.0-0.2); BILIRUBIN,TOTAL 0.2 MG/DL (0.2-1.0); BLOOD UREA NITROGEN 14 MG/DL (7-18); CALCIUM LEVEL 8.2 MG/DL (8.5-10.1); CARBON DIOXIDE LEVEL 25 MEQ/L (21-32); CHLORIDE LEVEL 112 MEQ/L (98-107); CREATININE FOR GFR 0.98 MG/DL (0.70-1.30); ETHYL ALCOHOL (ETHANOL) 0.241 % (0.000-0.010); GLOMERULAR FILTRATION RATE > 60.0 (>60); GLUCOSE, FASTING 92 MG/DL (70-100); POTASSIUM SERUM 4.2 MEQ/L (3.5-5.1); SALICYLATE LEVEL 3.2 MG/DL (5.0-30.0); SODIUM LEVEL 145 MEQ/L (136-145); TOTAL PROTEIN 6.7 GM/DL (6.4-8.2)
[2017-12-01] MEDS ORDERED: ATOMOXETINE HCL 40 MG CAP (STRATTERA) PO (08:00)
[2017-12-01] MEDS: FLUoxetine 20 MG CAP PO (08:11)
[2017-12-01] MEDS: IBUPROFEN 600 MG TAB PO (08:11)
[2017-12-01] MEDS ORDERED: MAALOX 30 ML SUSP *UDC PO (16:15)
[2017-12-01] MEDS ORDERED: MOM 30ML SUSPENSION UDC PO (16:15)
[2017-12-01] MEDS ORDERED: traZODone 50 MG TAB PO (16:15)
[2017-12-01] MEDS: LORazepam 1 MG TAB PO (18:20)
[2017-12-01] MEDS: ACETAMINOPHEN TAB 650MG DOSE (2X325MG) PO (18:21)
[2017-12-02] MEDS: LORazepam 1 MG TAB PO ×3 (08:44→21:39)
[2017-12-02] MEDS: IBUPROFEN 600 MG TAB PO ×2 (08:45→21:37)
[2017-12-02] MEDS ORDERED: FLUoxetine 20 MG CAP PO (09:00)
[2017-12-02] MEDS ORDERED: CEPACOL LOZENGE PO (09:45)
[2017-12-02] MEDS: QUEtiapine FUMARATE 50 MG TAB PO ×2 (12:29→21:37)
[2017-12-02] MEDS: SERTRALINE HCL 50 MG TAB PO (12:55)
[2017-12-02 13:39] LABS: CHOLESTEROL LEVEL 151 MG/DL (<200); CHOLESTEROL RISK RATIO 3.775 (<5); HDL CHOLESTEROL 40 MG/DL (>40); LDL CHOLESTEROL 56 MG/DL (<100); NON-HDL-C 111 MG/DL; TRIGLYCERIDES LEVEL 277 MG/DL (<150)
[2017-12-02] MEDS: GABAPENTIN 300 MG CAP PO ×2 (15:54→21:37)
[2017-12-02] MEDS: traZODone 100 MG TAB PO (21:37)
[2017-12-03] MEDS: QUEtiapine FUMARATE 50 MG TAB PO ×2 (09:06→21:00)
[2017-12-03] MEDS: LORazepam 1 MG TAB PO (09:06)
[2017-12-03] MEDS: SERTRALINE HCL 50 MG TAB PO (09:06)
[2017-12-03] MEDS: GABAPENTIN 300 MG CAP PO ×4 (09:06→21:00)
[2017-12-03] MEDS: SERTRALINE HCL 25 MG TABLET PO (12:46)
[2017-12-04] MEDS: LORazepam 1 MG TAB PO ×3 (08:34→21:14)
[2017-12-04] MEDS: SERTRALINE HCL 25 MG TABLET PO (08:34)
[2017-12-04] MEDS: GABAPENTIN 300 MG CAP PO ×4 (08:34→21:14)
[2017-12-04] MEDS: QUEtiapine FUMARATE 50 MG TAB PO ×2 (08:34→21:14)
[2017-12-05] MEDS: SERTRALINE HCL 25 MG TABLET PO (09:21)
[2017-12-05] MEDS: LORazepam 1 MG TAB PO ×2 (09:21→17:58)
[2017-12-05] MEDS: QUEtiapine FUMARATE 50 MG TAB PO ×2 (09:21→21:37)
[2017-12-05] MEDS: GABAPENTIN 300 MG CAP PO ×4 (09:21→21:36)
[2017-12-05] MEDS: traZODone 100 MG TAB PO (21:36)
[2017-12-06] MEDS: QUEtiapine FUMARATE 50 MG TAB PO (08:23)
[2017-12-06] MEDS: SERTRALINE HCL 25 MG TABLET PO (08:23)
[2017-12-06] MEDS: GABAPENTIN 300 MG CAP PO ×4 (08:24→21:53)
[2017-12-06] MEDS: LORazepam 1 MG TAB PO (08:24)
[2017-12-06] MEDS: traZODone 100 MG TAB PO (21:53)
[2017-12-06] MEDS: QUEtiapine FUMARATE 200 MG TAB PO (21:53)
[2017-12-07] MEDS: LORazepam 1 MG TAB PO ×2 (08:05→20:34)
[2017-12-07] MEDS: SERTRALINE 100 MG TAB PO (08:06)
[2017-12-07] MEDS: QUEtiapine FUMARATE 200 MG TAB PO ×3 (08:06→20:34)
[2017-12-07] MEDS: GABAPENTIN 300 MG CAP PO ×4 (08:06→20:34)
[2017-12-07] MEDS: IBUPROFEN 600 MG TAB PO (12:04)
[2017-12-07] MEDS ORDERED: PILL CRUSHER/CUTTER 1 EACH XX (14:45)
[2017-12-07] MEDS: traZODone 100 MG TAB PO (20:34)
[2017-12-08] MEDS: LORazepam 1 MG TAB PO ×2 (08:28→22:41)
[2017-12-08] MEDS: GABAPENTIN 300 MG CAP PO ×4 (08:28→22:41)
[2017-12-08] MEDS: QUEtiapine FUMARATE 200 MG TAB PO ×3 (08:28→22:41)
[2017-12-08] MEDS: SERTRALINE HCL 50 MG TAB PO (08:29)
[2017-12-09] MEDS: GABAPENTIN 300 MG CAP PO ×4 (08:39→21:00)
[2017-12-09] MEDS: QUEtiapine FUMARATE 200 MG TAB PO ×3 (08:40→21:00)
[2017-12-09] MEDS: SERTRALINE HCL 50 MG TAB PO (08:40)
[2017-12-09] MEDS: LORazepam 1 MG TAB PO (10:49)
[2017-12-10] MEDS: GABAPENTIN 300 MG CAP PO (07:52)
[2017-12-10] MEDS: QUEtiapine FUMARATE 200 MG TAB PO (07:52)
[2017-12-10] MEDS: SERTRALINE HCL 50 MG TAB PO (07:52)
== END 2017-12-10 08:30 | disposition home or self-care (01) | DRG 753 ==
LOC: M ED INP 12-01 16:06 → M ED 23:07 → M PSY 12-01 17:00
DX: F31.9 Bipolar disorder, unspecified (principal); F41.1 Generalized anxiety disorder; F43.10 Post-traumatic stress disorder, unspecified; F10.129 Alcohol abuse with intoxication, unspecified; G43.709 Chronic migraine without aura, not intractable, without status migrainosus; R05 Cough; Z81.8 Family history of other mental and behavioral disorders; Z59.0 Homelessness; Z91.5 Personal history of self-harm; Z65.2 Problems related to release from prison; Z79.899 Other long term (current) drug therapy; Z88.0 Allergy status to penicillin; Z88.8 Allergy status to other drugs, medicaments and biological substances; Z91.040 Latex allergy status

== ENCOUNTER 2017-12-12 07:40 | Emergency (ER) | payer MEDICAID ==
[2017-12-12] MEDS: IBUPROFEN 800 MG TAB PO (08:11)
[2017-12-12] MEDS: NS 1,000 ML IV (08:11)
[2017-12-12] MEDS: LORazepam 2 MG/ML VIAL (J2060) IV (08:11)
[2017-12-12 08:14] LABS: HEMATOCRIT 39.6 % (42.0-52.0); HEMOGLOBIN 13.3 g/dl (13.5-17.5); MEAN CORPUSCULAR HEMOGLOBIN 30.5 pg (27.0-33.0); MEAN CORPUSCULAR HGB CONC 33.6 g/dl (32.0-36.5); MEAN CORPUSCULAR VOLUME 90.8 fl (80.0-96.0); PLATELET COUNT, AUTOMATED 225 10^3/uL (150-450); RED BLOOD COUNT 4.36 10^6/uL (4.30-6.10); WHITE BLOOD COUNT 8.2 10^3/uL (4.0-10.0)
[2017-12-12 08:40] LABS: ACETAMINOPHEN LEVEL < 2.0 UG/ML (10.0-30.0); ALBUMIN 3.7 GM/DL (3.2-5.2); ALBUMIN/GLOBULIN RATIO 1.23 (1.00-1.93); ALKALINE PHOSPHATASE 86 U/L (45-117); ALT/SGPT 122 U/L (12-78); ANION GAP 11 MEQ/L (8-16); AST/SGOT 48 U/L (7-37); BILIRUBIN,DIRECT < 0.1 MG/DL (0.0-0.2); BILIRUBIN,TOTAL 0.2 MG/DL (0.2-1.0); BLOOD UREA NITROGEN 22 MG/DL (7-18); CALCIUM LEVEL 8.7 MG/DL (8.5-10.1); CARBON DIOXIDE LEVEL 24 MEQ/L (21-32); CHLORIDE LEVEL 109 MEQ/L (98-107); CREATININE FOR GFR 0.68 MG/DL (0.70-1.30); ETHYL ALCOHOL (ETHANOL) 0.049 % (0.000-0.010); GLOMERULAR FILTRATION RATE > 60.0 (>60); GLUCOSE, FASTING 103 MG/DL (70-100); POTASSIUM SERUM 4.2 MEQ/L (3.5-5.1); SALICYLATE LEVEL 2.1 MG/DL (5.0-30.0); SODIUM LEVEL 144 MEQ/L (136-145); TOTAL PROTEIN 6.7 GM/DL (6.4-8.2)
[2017-12-12] MEDS: MULTIVITAMIN -ADULT INJECTION 10 ML, THIAMINE INJection 100 MG, FOLIC ACID 1 MG in NS 1... IV (09:32)
[2017-12-12 12:07] LABS: AMPHETAMINES LEVEL URINE NEGATIVE (NEGATIVE); BARBITURATES URINE NEGATIVE (NEGATIVE); BENZODIAZEPINES URINE NEGATIVE (NEGATIVE); CANNABINOIDS URINE POSITIVE (NEGATIVE); COCAINE METABOLITE URINE NEGATIVE (NEGATIVE); METHADONE URINE NEGATIVE (NEGATIVE); OPIATES URINE NEGATIVE (NEGATIVE); PHENCYCLIDINE URINE NEGATIVE (NEGATIVE)
[2017-12-12] MEDS: LORazepam 2 MG TAB PO (18:06)
== END 2017-12-12 22:47 ==
LOC: M ED 07:40
DX: R45.851 Suicidal ideations (principal); F10.10 Alcohol abuse, uncomplicated; Y90.0 Blood alcohol level of less than 20 mg/100 ml; I45.19 Other right bundle-branch block; F41.9 Anxiety disorder, unspecified; F33.9 Major depressive disorder, recurrent, unspecified; R56.9 Unspecified convulsions; Z87.820 Personal history of traumatic brain injury; Z79.899 Other long term (current) drug therapy; Z88.0 Allergy status to penicillin; Z88.8 Allergy status to other drugs, medicaments and biological substances; Z91.040 Latex allergy status; F17.210 Nicotine dependence, cigarettes, uncomplicated
CPT/HCPCS: J2060

== ENCOUNTER 2018-01-14 14:33 | Inpatient (IN) | payer MEDICAID ==
[2018-01-14 15:10] LABS: BASO # 0.1 10^3/uL (0.0-0.2); BASO % 0.4 % (0.0-1.0); EOS # 0.1 10^3/uL (0.0-0.50); EOS % 0.5 % (0.0-3.0); HEMATOCRIT 40.4 % (42.0-52.0); HEMOGLOBIN 13.6 g/dl (13.5-17.5); IMMATURE GRANULOCYTE % 0.9 % (0-3.0); LYMPH # 2.6 10^3/uL (1.5-4.5); LYMPH % 22.9 % (24.0-44.0); MEAN CORPUSCULAR HEMOGLOBIN 30.6 pg (27.0-33.0); MEAN CORPUSCULAR HGB CONC 33.7 g/dl (32.0-36.5); MEAN CORPUSCULAR VOLUME 90.8 fl (80.0-96.0); MONO # 0.9 10^3/uL (0.0-0.8); NEUTROPHILS # 7.5 10^3/uL (1.8-7.7); NEUTROPHILS % 67.3 % (36.0-66.0); PLATELET COUNT, AUTOMATED 231 10^3/uL (150-450); RED BLOOD COUNT 4.45 10^6/uL (4.30-6.10); RED CELL DISTRIBUTION WIDTH 13.6 % (11.5-14.5); WHITE BLOOD COUNT 11.2 10^3/uL (4.0-10.0)
[2018-01-14 15:59] LABS: ACETAMINOPHEN LEVEL < 2.0 UG/ML (10.0-30.0); ALBUMIN 4.1 GM/DL (3.2-5.2); ALBUMIN/GLOBULIN RATIO 1.41 (1.00-1.93); ALKALINE PHOSPHATASE 74 U/L (45-117); ALT/SGPT 30 U/L (12-78); ANION GAP 10 MEQ/L (8-16); AST/SGOT 16 U/L (7-37); BILIRUBIN,DIRECT < 0.1 MG/DL (0.0-0.2); BILIRUBIN,TOTAL 0.2 MG/DL (0.2-1.0); BLOOD UREA NITROGEN 27 MG/DL (7-18); CALCIUM LEVEL 8.6 MG/DL (8.5-10.1); CARBON DIOXIDE LEVEL 25 MEQ/L (21-32); CHLORIDE LEVEL 102 MEQ/L (98-107); CREATININE FOR GFR 1.45 MG/DL (0.70-1.30); ETHYL ALCOHOL (ETHANOL) 0.178 % (0.000-0.010); GLOMERULAR FILTRATION RATE 55.3 (>60); GLUCOSE, FASTING 80 MG/DL (70-100); SALICYLATE LEVEL < 1.7 MG/DL (5.0-30.0); SODIUM LEVEL 137 MEQ/L (136-145)
[2018-01-14] MEDS: MULTIVITAMIN -ADULT INJECTION 10 ML, THIAMINE INJection 100 MG, FOLIC ACID 1 MG in NS 1... IV (16:13)
[2018-01-14 18:41] LABS: AMPHETAMINES LEVEL URINE NEGATIVE (NEGATIVE); BARBITURATES URINE NEGATIVE (NEGATIVE); BENZODIAZEPINES URINE NEGATIVE (NEGATIVE); CANNABINOIDS URINE POSITIVE (NEGATIVE); COCAINE METABOLITE URINE NEGATIVE (NEGATIVE); METHADONE URINE NEGATIVE (NEGATIVE); OPIATES URINE NEGATIVE (NEGATIVE); PHENCYCLIDINE URINE NEGATIVE (NEGATIVE)
[2018-01-14] MEDS ORDERED: MAALOX 30 ML SUSP *UDC PO (22:15)
[2018-01-14] MEDS ORDERED: MOM 30ML SUSPENSION UDC PO (22:15)
[2018-01-14] MEDS ORDERED: HALOPERIDOL 5 MG TAB PO (23:15)
[2018-01-15] MEDS: traZODone 50 MG TAB PO (00:02)
[2018-01-15] MEDS: QUEtiapine FUMARATE 200 MG TAB PO ×4 (00:02→21:30)
[2018-01-15] MEDS: GABAPENTIN 300 MG CAP PO ×5 (00:02→21:30)
[2018-01-15] MEDS: THIAMINE 100 MG TAB PO ×3 (00:02→21:30)
[2018-01-15] MEDS: LORazepam 2 MG TAB PO (00:03)
[2018-01-15] MEDS: hydrOXYzine 50 MG TAB PO ×4 (00:05→21:30)
[2018-01-15] MEDS: BACTRIM 160MG/800MG DS TAB PO ×3 (00:05→21:30)
[2018-01-15] MEDS: FOLIC ACID 1 MG TAB PO (09:59)
[2018-01-15] MEDS: predniSONE 5 MG TAB PO (10:00)
[2018-01-15] MEDS: SERTRALINE HCL 50 MG TAB PO (10:00)
[2018-01-15] MEDS: MULTIVITAMINS/MINERALS THERAP 1 TAB PO (10:00)
[2018-01-16] MEDS: FOLIC ACID 1 MG TAB PO (08:04)
[2018-01-16] MEDS: GABAPENTIN 300 MG CAP PO ×4 (08:04→21:12)
[2018-01-16] MEDS: predniSONE 5 MG TAB PO (08:04)
[2018-01-16] MEDS: BACTRIM 160MG/800MG DS TAB PO ×2 (08:04→21:12)
[2018-01-16] MEDS: PARoxetine 10MG TABLET PO (08:04)
[2018-01-16] MEDS: MULTIVITAMINS/MINERALS THERAP 1 TAB PO (08:04)
[2018-01-16] MEDS: hydrOXYzine 50 MG TAB PO ×3 (08:04→21:12)
[2018-01-16] MEDS: THIAMINE 100 MG TAB PO ×2 (08:04→21:12)
[2018-01-16] MEDS: QUEtiapine FUMARATE 200 MG TAB PO ×3 (08:04→21:13)
[2018-01-16] MEDS: LORazepam 2 MG TAB PO (11:53)
[2018-01-16] MEDS: NICOTINE POLACRILEX 2 MG GUM PO (14:24)
[2018-01-16] MEDS: traZODone 50 MG TAB PO (21:12)
[2018-01-16 21:29] LABS: ANION GAP 5 MEQ/L (8-16); BLOOD UREA NITROGEN 23 MG/DL (7-18); CALCIUM LEVEL 8.6 MG/DL (8.5-10.1); CARBON DIOXIDE LEVEL 29 MEQ/L (21-32); CHLORIDE LEVEL 104 MEQ/L (98-107); CREATININE FOR GFR 1.48 MG/DL (0.70-1.30); GLUCOSE, FASTING 102 MG/DL (70-100); POTASSIUM SERUM 4.5 MEQ/L (3.5-5.1); SODIUM LEVEL 138 MEQ/L (136-145)
[2018-01-16] MEDS: MUPIROCIN 2% OINT 22 GM TUBE TOP (21:57)
[2018-01-17 07:19] LABS: BASO % 0.6 % (0.0-1.0); EOS # 0.3 10^3/uL (0.0-0.50); EOS % 3.8 % (0.0-3.0); HEMATOCRIT 39.7 % (42.0-52.0); HEMOGLOBIN 13.5 g/dl (13.5-17.5); IMMATURE GRANULOCYTE % 0.4 % (0-3.0); LYMPH # 2.6 10^3/uL (1.5-4.5); LYMPH % 37.8 % (24.0-44.0); MEAN CORPUSCULAR HEMOGLOBIN 30.5 pg (27.0-33.0); MEAN CORPUSCULAR VOLUME 89.6 fl (80.0-96.0); MONO # 0.6 10^3/uL (0.0-0.8); MONO % 8.8 % (0.0-5.0); NEUTROPHILS # 3.4 10^3/uL (1.8-7.7); NEUTROPHILS % 48.6 % (36.0-66.0); PLATELET COUNT, AUTOMATED 196 10^3/uL (150-450); RED BLOOD COUNT 4.43 10^6/uL (4.30-6.10); RED CELL DISTRIBUTION WIDTH 13.7 % (11.5-14.5); WHITE BLOOD COUNT 6.9 10^3/uL (4.0-10.0)
[2018-01-17 07:50] LABS: ALBUMIN 3.5 GM/DL (3.2-5.2); ALBUMIN/GLOBULIN RATIO 1.21 (1.00-1.93); ALKALINE PHOSPHATASE 68 U/L (45-117); ALT/SGPT 25 U/L (12-78); ANION GAP 7 MEQ/L (8-16); AST/SGOT 11 U/L (7-37); BILIRUBIN,TOTAL 0.4 MG/DL (0.2-1.0); BLOOD UREA NITROGEN 22 MG/DL (7-18); CALCIUM LEVEL 8.3 MG/DL (8.5-10.1); CARBON DIOXIDE LEVEL 27 MEQ/L (21-32); CHLORIDE LEVEL 105 MEQ/L (98-107); CREATININE FOR GFR 1.18 MG/DL (0.70-1.30); GLOMERULAR FILTRATION RATE > 60.0 (>60); GLUCOSE, FASTING 82 MG/DL (70-100); POTASSIUM SERUM 4.6 MEQ/L (3.5-5.1); SODIUM LEVEL 139 MEQ/L (136-145); TOTAL PROTEIN 6.4 GM/DL (6.4-8.2)
[2018-01-17] MEDS: hydrOXYzine 50 MG TAB PO ×3 (08:38→21:36)
[2018-01-17] MEDS: predniSONE 5 MG TAB PO (08:38)
[2018-01-17] MEDS: PARoxetine 10MG TABLET PO (08:38)
[2018-01-17] MEDS: MULTIVITAMINS/MINERALS THERAP 1 TAB PO (08:38)
[2018-01-17] MEDS: GABAPENTIN 300 MG CAP PO ×4 (08:38→21:36)
[2018-01-17] MEDS: FOLIC ACID 1 MG TAB PO (08:38)
[2018-01-17] MEDS: MUPIROCIN 2% OINT 22 GM TUBE TOP ×2 (08:39→21:00)
[2018-01-17] MEDS: THIAMINE 100 MG TAB PO (08:39)
[2018-01-17] MEDS: QUEtiapine FUMARATE 200 MG TAB PO ×3 (08:40→21:36)
[2018-01-17] MEDS: DOXYCYCLINE HYCLATE 100 MG TAB PO ×2 (10:18→21:36)
[2018-01-17] MEDS: HALOPERIDOL 5 MG TAB PO ×2 (11:17→21:36)
[2018-01-17] MEDS: NICOTINE POLACRILEX 2 MG GUM PO (15:37)
[2018-01-18] MEDS: ACETAMINOPHEN TAB 650MG DOSE (2X325MG) PO (02:29)
[2018-01-18] MEDS: MUPIROCIN 2% OINT 22 GM TUBE TOP (08:35)
[2018-01-18] MEDS: NICOTINE POLACRILEX 2 MG GUM PO (08:35)
[2018-01-18] MEDS: hydrOXYzine 50 MG TAB PO (08:35)
[2018-01-18] MEDS: DOXYCYCLINE HYCLATE 100 MG TAB PO (08:36)
[2018-01-18] MEDS: PARoxetine 20 MG TAB PO (08:36)
[2018-01-18] MEDS: QUEtiapine FUMARATE 200 MG TAB PO (08:36)
[2018-01-18] MEDS: FOLIC ACID 1 MG TAB PO (08:36)
[2018-01-18] MEDS: MULTIVITAMINS/MINERALS THERAP 1 TAB PO (08:36)
[2018-01-18] MEDS: GABAPENTIN 300 MG CAP PO (08:36)
[2018-01-18] MEDS: predniSONE 5 MG TAB PO (08:37)
[2018-01-18] MEDS: HALOPERIDOL 5 MG TAB PO (08:37)
== END 2018-01-18 12:10 | disposition home or self-care (01) | DRG 753 ==
LOC: M PSY 01-16 14:44 → M ED 14:33 → M ED INP 22:15 → M PSY 22:58
DX: F31.9 Bipolar disorder, unspecified (principal); F40.01 Agoraphobia with panic disorder; F10.229 Alcohol dependence with intoxication, unspecified; G43.709 Chronic migraine without aura, not intractable, without status migrainosus; F12.10 Cannabis abuse, uncomplicated; G47.00 Insomnia, unspecified; F17.210 Nicotine dependence, cigarettes, uncomplicated; Z65.2 Problems related to release from prison; Z79.52 Long term (current) use of systemic steroids; Z79.899 Other long term (current) drug therapy; Z88.0 Allergy status to penicillin; Z88.8 Allergy status to other drugs, medicaments and biological substances; Z91.040 Latex allergy status; Z87.820 Personal history of traumatic brain injury; Z81.8 Family history of other mental and behavioral disorders; Z91.5 Personal history of self-harm; Z59.0 Homelessness

== ENCOUNTER 2018-01-18 18:15 | Emergency (ER) | payer MEDICAID ==
[2018-01-18 18:31] LABS: BEDSIDE GLUCOSE 96 MG/DL (70-105)
[2018-01-18 18:54] LABS: HEMATOCRIT 40.1 % (42.0-52.0); HEMOGLOBIN 13.8 g/dl (13.5-17.5); MEAN CORPUSCULAR HEMOGLOBIN 30.7 pg (27.0-33.0); MEAN CORPUSCULAR HGB CONC 34.4 g/dl (32.0-36.5); MEAN CORPUSCULAR VOLUME 89.3 fl (80.0-96.0); PLATELET COUNT, AUTOMATED 226 10^3/uL (150-450); RED BLOOD COUNT 4.49 10^6/uL (4.30-6.10); RED CELL DISTRIBUTION WIDTH 13.4 % (11.5-14.5)
[2018-01-18 19:24] LABS: ACETAMINOPHEN LEVEL < 2.0 UG/ML (10.0-30.0); ALBUMIN 3.8 GM/DL (3.2-5.2); ALBUMIN/GLOBULIN RATIO 1.23 (1.00-1.93); ALKALINE PHOSPHATASE 79 U/L (45-117); ALT/SGPT 41 U/L (12-78); ANION GAP 12 MEQ/L (8-16); AST/SGOT 29 U/L (7-37); BILIRUBIN,DIRECT < 0.1 MG/DL (0.0-0.2); BILIRUBIN,TOTAL 0.2 MG/DL (0.2-1.0); BLOOD UREA NITROGEN 17 MG/DL (7-18); CARBON DIOXIDE LEVEL 23 MEQ/L (21-32); CHLORIDE LEVEL 109 MEQ/L (98-107); CPK CREATINE PHOSPHOKINASE 156 U/L (39-308); CREATININE FOR GFR 1.14 MG/DL (0.70-1.30); ETHYL ALCOHOL (ETHANOL) 0.265 % (0.000-0.010); GLOMERULAR FILTRATION RATE > 60.0 (>60); GLUCOSE, FASTING 99 MG/DL (70-100); POTASSIUM SERUM 4.1 MEQ/L (3.5-5.1); SALICYLATE LEVEL < 1.7 MG/DL (5.0-30.0); SODIUM LEVEL 144 MEQ/L (136-145); TOTAL PROTEIN 6.9 GM/DL (6.4-8.2); TROPONIN I < 0.02 NG/ML (< 0.10)
[2018-01-18] MEDS: HALOPERIDOL 5 MG/ML VIAL (J1630) IM (20:22)
[2018-01-18] MEDS: diphenhydrAMINE INJ 50MG/ML VIAL (J1200) IM (20:22)
[2018-01-18 20:43] LABS: AMPHETAMINES LEVEL URINE NEGATIVE (NEGATIVE); BARBITURATES URINE NEGATIVE (NEGATIVE); BENZODIAZEPINES URINE NEGATIVE (NEGATIVE); CANNABINOIDS URINE NEGATIVE (NEGATIVE); COCAINE METABOLITE URINE NEGATIVE (NEGATIVE); METHADONE URINE NEGATIVE (NEGATIVE); OPIATES URINE NEGATIVE (NEGATIVE); PHENCYCLIDINE URINE NEGATIVE (NEGATIVE)
[2018-01-19] MEDS: PARoxetine 20 MG TAB PO (10:56)
[2018-01-19] MEDS: hydrOXYzine 50 MG TAB PO (10:56)
[2018-01-19] MEDS: QUEtiapine FUMARATE 200 MG TAB PO (10:56)
[2018-01-19] MEDS: GABAPENTIN 300 MG CAP PO (10:56)
[2018-01-19] MEDS: predniSONE 5 MG TAB PO (10:56)
[2018-01-19] MEDS: HALOPERIDOL 5 MG TAB PO (10:56)
[2018-01-19] MEDS: DOXYCYCLINE HYCLATE 100 MG TAB PO (10:56)
[2018-01-19] MEDS: MELOXICAM (MOBIC) 7.5 MG TAB PO (12:23)
[2018-01-19] MEDS: NALTREXONE 50 MG TAB PO (12:23)
[2018-01-19] MEDS: ATENOLOL 25 MG TAB PO (13:25)
== END 2018-01-19 13:28 | disposition home or self-care (01) ==
LOC: M ED 01-19 13:28
DX: F10.120 Alcohol abuse with intoxication, uncomplicated (principal); I10 Essential (primary) hypertension; Z87.820 Personal history of traumatic brain injury; G43.909 Migraine, unspecified, not intractable, without status migrainosus; Z91.040 Latex allergy status; Z88.0 Allergy status to penicillin; Z88.8 Allergy status to other drugs, medicaments and biological substances; Z79.899 Other long term (current) drug therapy
CPT/HCPCS: J1200

== ENCOUNTER 2018-01-21 19:09 | Inpatient (IN) | payer MEDICAID ==
[2018-01-21 20:22] LABS: HEMATOCRIT 38.6 % (42.0-52.0); HEMOGLOBIN 12.7 g/dl (13.5-17.5); MEAN CORPUSCULAR HEMOGLOBIN 29.9 pg (27.0-33.0); MEAN CORPUSCULAR HGB CONC 32.9 g/dl (32.0-36.5); MEAN CORPUSCULAR VOLUME 90.8 fl (80.0-96.0); PLATELET COUNT, AUTOMATED 212 10^3/uL (150-450); RED BLOOD COUNT 4.25 10^6/uL (4.30-6.10); RED CELL DISTRIBUTION WIDTH 13.7 % (11.5-14.5); WHITE BLOOD COUNT 10.1 10^3/uL (4.0-10.0)
[2018-01-21 21:01] LABS: ACETAMINOPHEN LEVEL < 2.0 UG/ML (10.0-30.0); ALBUMIN 3.3 GM/DL (3.2-5.2); ALBUMIN/GLOBULIN RATIO 1.18 (1.00-1.93); ALKALINE PHOSPHATASE 74 U/L (45-117); ALT/SGPT 29 U/L (12-78); ANION GAP 9 MEQ/L (8-16); AST/SGOT 16 U/L (7-37); BILIRUBIN,DIRECT < 0.1 MG/DL (0.0-0.2); BILIRUBIN,TOTAL 0.2 MG/DL (0.2-1.0); BLOOD UREA NITROGEN 23 MG/DL (7-18); CALCIUM LEVEL 8.2 MG/DL (8.5-10.1); CARBON DIOXIDE LEVEL 25 MEQ/L (21-32); CHLORIDE LEVEL 112 MEQ/L (98-107); CREATININE FOR GFR 1.34 MG/DL (0.70-1.30); ETHYL ALCOHOL (ETHANOL) 0.231 % (0.000-0.010); GLOMERULAR FILTRATION RATE > 60.0 (>60); GLUCOSE, FASTING 100 MG/DL (70-100); POTASSIUM SERUM 3.7 MEQ/L (3.5-5.1); SALICYLATE LEVEL < 1.7 MG/DL (5.0-30.0); SODIUM LEVEL 146 MEQ/L (136-145); TOTAL PROTEIN 6.1 GM/DL (6.4-8.2)
[2018-01-21] MEDS: NS 1,000 ML IV (21:15)
[2018-01-21 22:06] LABS: AMPHETAMINES LEVEL URINE NEGATIVE (NEGATIVE); BARBITURATES URINE NEGATIVE (NEGATIVE); BENZODIAZEPINES URINE NEGATIVE (NEGATIVE); CANNABINOIDS URINE NEGATIVE (NEGATIVE); COCAINE METABOLITE URINE NEGATIVE (NEGATIVE); METHADONE URINE NEGATIVE (NEGATIVE); OPIATES URINE NEGATIVE (NEGATIVE); PHENCYCLIDINE URINE NEGATIVE (NEGATIVE)
[2018-01-22] MEDS ORDERED: ACETAMINOPHEN TAB 650MG DOSE (2X325MG) PO (10:00)
[2018-01-22] MEDS ORDERED: MOM 30ML SUSPENSION UDC PO (10:00)
[2018-01-22] MEDS ORDERED: MAALOX 30 ML SUSP *UDC PO (10:00)
[2018-01-22] MEDS: THIAMINE 100 MG TAB PO ×2 (12:21→20:21)
[2018-01-22] MEDS: ATENOLOL 25 MG TAB PO (13:53)
[2018-01-22] MEDS: GABAPENTIN 300 MG CAP PO ×3 (14:07→20:21)
[2018-01-22] MEDS: MELOXICAM (MOBIC) 7.5 MG TAB PO (14:07)
[2018-01-22] MEDS: traZODone 50 MG TAB PO (20:22)
[2018-01-22] MEDS: QUEtiapine FUMARATE 200 MG TAB PO (20:22)
[2018-01-22] MEDS: DOXYCYCLINE HYCLATE 100 MG TAB PO (20:22)
[2018-01-23 07:22] LABS: ALBUMIN 3.6 GM/DL (3.2-5.2); ALBUMIN/GLOBULIN RATIO 1.29 (1.00-1.93); ALKALINE PHOSPHATASE 80 U/L (45-117); ALT/SGPT 28 U/L (12-78); ANION GAP 6 MEQ/L (8-16); AST/SGOT 13 U/L (7-37); BILIRUBIN,TOTAL 0.6 MG/DL (0.2-1.0); BLOOD UREA NITROGEN 25 MG/DL (7-18); CALCIUM LEVEL 8.7 MG/DL (8.5-10.1); CARBON DIOXIDE LEVEL 27 MEQ/L (21-32); CHLORIDE LEVEL 108 MEQ/L (98-107); GLOMERULAR FILTRATION RATE > 60.0 (>60); GLUCOSE, FASTING 102 MG/DL (70-100); POTASSIUM SERUM 4.3 MEQ/L (3.5-5.1); SODIUM LEVEL 141 MEQ/L (136-145); TOTAL PROTEIN 6.4 GM/DL (6.4-8.2)
[2018-01-23] MEDS: NICOTINE 21MG/24HR 1 EA TRANSDERMAL TD (09:00)
[2018-01-23] MEDS: MULTIVITAMINS/MINERALS THERAP 1 TAB PO (09:44)
[2018-01-23] MEDS: amLODIPine 5 MG TAB PO (09:46)
[2018-01-23] MEDS: GABAPENTIN 300 MG CAP PO ×4 (09:46→21:04)
[2018-01-23] MEDS: MELOXICAM (MOBIC) 7.5 MG TAB PO (09:46)
[2018-01-23] MEDS: PARoxetine 20 MG TAB PO (09:46)
[2018-01-23] MEDS: FOLIC ACID 1 MG TAB PO (09:46)
[2018-01-23] MEDS: ATENOLOL 25 MG TAB PO (09:46)
[2018-01-23] MEDS: NALTREXONE 50 MG TAB PO (09:46)
[2018-01-23] MEDS: DOXYCYCLINE HYCLATE 100 MG TAB PO ×2 (09:46→21:04)
[2018-01-23] MEDS: QUEtiapine FUMARATE 200 MG TAB PO ×2 (09:46→21:04)
[2018-01-23] MEDS: THIAMINE 100 MG TAB PO ×2 (09:46→21:04)
[2018-01-23] MEDS: NICOTINE POLACRILEX 2 MG GUM PO ×2 (16:43→21:04)
[2018-01-23] MEDS: LORazepam 2 MG TAB PO (17:22)
[2018-01-23] MEDS: traZODone 50 MG TAB PO (21:04)
[2018-01-24 07:10] LABS: ALBUMIN 3.5 GM/DL (3.2-5.2); ALBUMIN/GLOBULIN RATIO 1.21 (1.00-1.93); ALKALINE PHOSPHATASE 77 U/L (45-117); ALT/SGPT 22 U/L (12-78); ANION GAP 6 MEQ/L (8-16); AST/SGOT 13 U/L (7-37); BLOOD UREA NITROGEN 21 MG/DL (7-18); CALCIUM LEVEL 8.5 MG/DL (8.5-10.1); CARBON DIOXIDE LEVEL 29 MEQ/L (21-32); CHLORIDE LEVEL 105 MEQ/L (98-107); CREATININE FOR GFR 1.05 MG/DL (0.70-1.30); GLOMERULAR FILTRATION RATE > 60.0 (>60); GLUCOSE, FASTING 91 MG/DL (70-100); POTASSIUM SERUM 4.2 MEQ/L (3.5-5.1); SODIUM LEVEL 140 MEQ/L (136-145); TOTAL PROTEIN 6.4 GM/DL (6.4-8.2)
[2018-01-24] MEDS: QUEtiapine FUMARATE 200 MG TAB PO ×2 (08:30→21:16)
[2018-01-24] MEDS: ATENOLOL 25 MG TAB PO (08:30)
[2018-01-24] MEDS: NALTREXONE 50 MG TAB PO (08:30)
[2018-01-24] MEDS: GABAPENTIN 300 MG CAP PO ×4 (08:30→21:16)
[2018-01-24] MEDS: MELOXICAM (MOBIC) 7.5 MG TAB PO (08:30)
[2018-01-24] MEDS: PARoxetine 20 MG TAB PO (08:31)
[2018-01-24] MEDS: THIAMINE 100 MG TAB PO ×2 (08:31→21:16)
[2018-01-24] MEDS: MULTIVITAMINS/MINERALS THERAP 1 TAB PO (08:31)
[2018-01-24] MEDS: amLODIPine 5 MG TAB PO (08:31)
[2018-01-24] MEDS: DOXYCYCLINE HYCLATE 100 MG TAB PO ×2 (08:31→21:16)
[2018-01-24] MEDS: FOLIC ACID 1 MG TAB PO (08:31)
[2018-01-24] MEDS: NICOTINE POLACRILEX 2 MG GUM PO (08:34)
[2018-01-24] MEDS: hydrOXYzine 50 MG TAB PO ×2 (15:39→23:27)
[2018-01-24] MEDS: traZODone 50 MG TAB PO (23:27)
[2018-01-25] MEDS: FOLIC ACID 1 MG TAB PO (08:02)
[2018-01-25] MEDS: ATENOLOL 25 MG TAB PO (08:02)
[2018-01-25] MEDS: GABAPENTIN 300 MG CAP PO ×4 (08:02→21:52)
[2018-01-25] MEDS: MULTIVITAMINS/MINERALS THERAP 1 TAB PO (08:02)
[2018-01-25] MEDS: NALTREXONE 50 MG TAB PO (08:03)
[2018-01-25] MEDS: amLODIPine 5 MG TAB PO (08:03)
[2018-01-25] MEDS: PARoxetine 20 MG TAB PO (08:03)
[2018-01-25] MEDS: QUEtiapine FUMARATE 200 MG TAB PO ×3 (08:03→21:52)
[2018-01-25] MEDS: MELOXICAM (MOBIC) 7.5 MG TAB PO (08:03)
[2018-01-25] MEDS: DOXYCYCLINE HYCLATE 100 MG TAB PO ×2 (08:03→21:52)
[2018-01-25 08:51] LABS: BEDSIDE GLUCOSE 87 MG/DL (70-105)
[2018-01-25 09:01] LABS: BEDSIDE GLUCOSE 87 MG/DL (70-105)
[2018-01-25] MEDS: hydrOXYzine 50 MG TAB PO (09:02)
[2018-01-25] MEDS: NICOTINE POLACRILEX 2 MG GUM PO ×2 (09:03→13:05)
[2018-01-25] MEDS: traZODone 50 MG TAB PO (21:52)
[2018-01-26] MEDS: PARoxetine 10MG TABLET PO (08:02)
[2018-01-26] MEDS: NALTREXONE 50 MG TAB PO (08:02)
[2018-01-26] MEDS: amLODIPine 5 MG TAB PO (08:02)
[2018-01-26] MEDS: ATENOLOL 25 MG TAB PO (08:03)
[2018-01-26] MEDS: MELOXICAM (MOBIC) 7.5 MG TAB PO (08:03)
[2018-01-26] MEDS: GABAPENTIN 300 MG CAP PO ×4 (08:03→20:48)
[2018-01-26] MEDS: QUEtiapine FUMARATE 200 MG TAB PO ×3 (08:03→20:48)
[2018-01-26] MEDS: NICOTINE POLACRILEX 2 MG GUM PO ×2 (08:06→20:49)
[2018-01-26] MEDS: hydrOXYzine 50 MG TAB PO ×2 (09:21→16:17)
[2018-01-26] MEDS: traZODone 50 MG TAB PO (20:48)
[2018-01-27] MEDS: NICOTINE POLACRILEX 2 MG GUM PO ×4 (06:49→21:09)
[2018-01-27] MEDS: ATENOLOL 25 MG TAB PO (09:17)
[2018-01-27] MEDS: hydrOXYzine 50 MG TAB PO ×2 (09:17→16:35)
[2018-01-27] MEDS: NALTREXONE 50 MG TAB PO (09:17)
[2018-01-27] MEDS: amLODIPine 5 MG TAB PO (09:17)
[2018-01-27] MEDS: GABAPENTIN 300 MG CAP PO ×4 (09:17→21:09)
[2018-01-27] MEDS: MELOXICAM (MOBIC) 7.5 MG TAB PO (09:17)
[2018-01-27] MEDS: PARoxetine 10MG TABLET PO (09:17)
[2018-01-27] MEDS: QUEtiapine FUMARATE 200 MG TAB PO ×4 (09:17→21:09)
[2018-01-27] MEDS: traZODone 50 MG TAB PO (21:09)
[2018-01-28] MEDS: hydrOXYzine 50 MG TAB PO ×3 (06:44→16:55)
[2018-01-28] MEDS: NICOTINE POLACRILEX 2 MG GUM PO ×2 (06:45→16:56)
[2018-01-28] MEDS: NALTREXONE 50 MG TAB PO (08:02)
[2018-01-28] MEDS: GABAPENTIN 300 MG CAP PO ×4 (08:02→21:09)
[2018-01-28] MEDS: QUEtiapine FUMARATE 200 MG TAB PO ×4 (08:03→21:09)
[2018-01-28] MEDS: MELOXICAM (MOBIC) 7.5 MG TAB PO (08:03)
[2018-01-28] MEDS: amLODIPine 5 MG TAB PO (08:03)
[2018-01-28] MEDS: PARoxetine 20 MG TAB PO (08:03)
[2018-01-28] MEDS: ATENOLOL 25 MG TAB PO (08:03)
[2018-01-28] MEDS: traZODone 50 MG TAB PO (21:10)
[2018-01-29] MEDS: NICOTINE POLACRILEX 2 MG GUM PO ×2 (06:38→12:23)
[2018-01-29] MEDS: hydrOXYzine 50 MG TAB PO ×2 (06:38→12:22)
[2018-01-29] MEDS: GABAPENTIN 300 MG CAP PO ×4 (08:40→21:53)
[2018-01-29] MEDS: PARoxetine 20 MG TAB PO (08:40)
[2018-01-29] MEDS: amLODIPine 5 MG TAB PO (08:40)
[2018-01-29] MEDS: MELOXICAM (MOBIC) 7.5 MG TAB PO (08:40)
[2018-01-29] MEDS: NALTREXONE 50 MG TAB PO (08:41)
[2018-01-29] MEDS: ATENOLOL 25 MG TAB PO (08:41)
[2018-01-29] MEDS: QUEtiapine FUMARATE 200 MG TAB PO ×4 (08:41→21:53)
[2018-01-30] MEDS: NICOTINE POLACRILEX 2 MG GUM PO ×3 (06:31→17:02)
[2018-01-30] MEDS: hydrOXYzine 50 MG TAB PO ×3 (06:31→17:02)
[2018-01-30] MEDS: NALTREXONE 50 MG TAB PO (08:35)
[2018-01-30] MEDS: QUEtiapine FUMARATE 200 MG TAB PO ×4 (08:35→20:45)
[2018-01-30] MEDS: GABAPENTIN 300 MG CAP PO ×4 (08:35→20:45)
[2018-01-30] MEDS: MELOXICAM (MOBIC) 7.5 MG TAB PO (08:35)
[2018-01-30] MEDS: ATENOLOL 25 MG TAB PO (08:35)
[2018-01-30] MEDS: PARoxetine 20 MG TAB PO (08:36)
[2018-01-30] MEDS: amLODIPine 5 MG TAB PO (08:36)
[2018-01-30] MEDS: traZODone 50 MG TAB PO (20:45)
[2018-01-31] MEDS: hydrOXYzine 50 MG TAB PO ×2 (03:00→08:16)
[2018-01-31] MEDS: NICOTINE POLACRILEX 2 MG GUM PO ×2 (03:00→08:16)
[2018-01-31] MEDS: GABAPENTIN 300 MG CAP PO (08:15)
[2018-01-31] MEDS: NALTREXONE 50 MG TAB PO (08:15)
[2018-01-31] MEDS: PARoxetine 20 MG TAB PO (08:15)
[2018-01-31] MEDS: QUEtiapine FUMARATE 200 MG TAB PO (08:15)
[2018-01-31] MEDS: MELOXICAM (MOBIC) 7.5 MG TAB PO (08:16)
[2018-01-31] MEDS: amLODIPine 5 MG TAB PO (08:16)
[2018-01-31] MEDS: ATENOLOL 25 MG TAB PO (08:16)
== END 2018-01-31 10:15 | DRG 753 ==
LOC: M PSY 01-24 12:08 → M ED INP 01-22 09:52 → M ED 19:09 → M PSY 01-22 10:50
PROVIDERS: Psychiatry & Neurology Psychiatry
DX: F31.60 Bipolar disorder, current episode mixed, unspecified (principal); F10.20 Alcohol dependence, uncomplicated; F17.210 Nicotine dependence, cigarettes, uncomplicated; G43.709 Chronic migraine without aura, not intractable, without status migrainosus; Z91.5 Personal history of self-harm; Z87.820 Personal history of traumatic brain injury; Z59.0 Homelessness; Z86.14 Personal history of Methicillin resistant Staphylococcus aureus infection; Z79.1 Long term (current) use of non-steroidal anti-inflammatories (NSAID); Z79.899 Other long term (current) drug therapy; Z88.0 Allergy status to penicillin; Z91.040 Latex allergy status; Z88.8 Allergy status to other drugs, medicaments and biological substances

== ENCOUNTER 2018-05-22 09:26 | Inpatient (IN) | payer MEDICAID ==
[~2018-05-22] VITALS: Ht 177.8 cm; Wt 113.6 kg
[~2018-05-22 09:26] MED LIST changes: +ARIP10TAB PO; +ATEN25TA PO; +BACT800T5 PO; +DOXY100T PO; +EFFE75CA2 PO; +FLUO1TAB3 PO; +FOLI1TAB11 PO; -FOLI1TAB4 PO; +GABA-1171 PO; +GABA-843 PO; +HALO5TA PO; +HYDR50CA2 PO; +IBUP-1022 PO; +MELO15TA28 PO; +NALT50TA4 PO; +PARO20TA3 PO; +PARO40TA2 PO; +PRED10PA PO; +PRED5TA PO; +PROZ40CA PO; +QUET1TAB9 PO; +SERT50TA PO; +STRA10CA PO; +TRAZ10TA PO; +TRAZ25TA PO; +TRAZO50TA PO; +effexor PO
[2018-05-22] MEDS ORDERED: DULO30CA PO (09:37)
[2018-05-22 10:18] LABS: HEMATOCRIT 40.4 % (42.0-52.0); HEMOGLOBIN 13.4 g/dl (13.5-17.5); MEAN CORPUSCULAR HEMOGLOBIN 29.3 pg (27.0-33.0); MEAN CORPUSCULAR HGB CONC 33.2 g/dl (32.0-36.5); MEAN CORPUSCULAR VOLUME 88.4 fl (80.0-96.0); PLATELET COUNT, AUTOMATED 213 10^3/uL (150-450); RED BLOOD COUNT 4.57 10^6/uL (4.30-6.10); WHITE BLOOD COUNT 7.3 10^3/uL (4.0-10.0)
[2018-05-22 10:32] LABS: AMPHETAMINES LEVEL URINE NEGATIVE (NEGATIVE); BARBITURATES URINE NEGATIVE (NEGATIVE); BENZODIAZEPINES URINE NEGATIVE (NEGATIVE); CANNABINOIDS URINE POSITIVE (NEGATIVE); COCAINE METABOLITE URINE NEGATIVE (NEGATIVE); METHADONE URINE NEGATIVE (NEGATIVE); OPIATES URINE NEGATIVE (NEGATIVE); PHENCYCLIDINE URINE NEGATIVE (NEGATIVE)
[2018-05-22 10:52] LABS: ACETAMINOPHEN LEVEL < 2.0 UG/ML (10.0-30.0); ALBUMIN 3.6 GM/DL (3.2-5.2); ALT/SGPT 21 U/L (12-78); BILIRUBIN,DIRECT 0.2 MG/DL (0.0-0.2); BILIRUBIN,TOTAL 0.5 MG/DL (0.2-1.0); BLOOD UREA NITROGEN 8 MG/DL (7-18); CALCIUM LEVEL 8.4 MG/DL (8.5-10.1); CARBON DIOXIDE LEVEL 23 MEQ/L (21-32); CHLORIDE LEVEL 109 MEQ/L (98-107); CREATININE FOR GFR 0.78 MG/DL (0.70-1.30); ETHYL ALCOHOL (ETHANOL) 0.024 % (0.000-0.010); GLOMERULAR FILTRATION RATE > 60.0 (>60); GLUCOSE, FASTING 95 MG/DL (70-100); POTASSIUM SERUM 4.3 MEQ/L (3.5-5.1); SALICYLATE LEVEL < 1.7 MG/DL (5.0-30.0); SODIUM LEVEL 141 MEQ/L (136-145); THYROID STIMULATING HORMONE 0.923 uIU/ML (0.358-3.740); TOTAL PROTEIN 6.4 GM/DL (6.4-8.2)
[2018-05-22] MEDS ORDERED: LORazepam 1 MG TAB PO STA (14:10)
[2018-05-23] MEDS ORDERED: LORazepam 2 MG TAB PO STA (09:23)
[2018-05-23] MEDS ORDERED: DULoxetine 30 MG CAP (CYMBALTA) PO ONE (10:45)
[2018-05-23] MEDS ORDERED: PARoxetine 20 MG TAB PO ONE (10:45)
[2018-05-23] MEDS ORDERED: GABAPENTIN 300 MG CAP PO ONE (10:45)
[2018-05-23] MEDS ORDERED: QUEtiapine FUMARATE 200 MG TAB PO ONE (10:45)
[2018-05-23] MEDS ORDERED: GABA600T4 PO (12:46)
[2018-05-23] MEDS: QUEtiapine FUMARATE 200 MG TAB PO SCH ×4 (13:00→21:00)
[2018-05-23] MEDS ORDERED: MAALOX 30 ML SUSP *UDC PO PRN (13:00)
[2018-05-23] MEDS ORDERED: ACETAMINOPHEN TAB 650MG DOSE (2X325MG) PO PRN (13:00)
[2018-05-23] MEDS ORDERED: MOM 30ML SUSPENSION UDC PO PRN (13:00)
[2018-05-23] MEDS: GABAPENTIN 300 MG CAP PO SCH ×4 (13:00→21:00)
[2018-05-23 13:30] VITALS: BP 142/86
[2018-05-23] MEDS: ATENOLOL 25 MG TAB PO SCH (15:18)
[2018-05-23 18:00] VITALS: BP 120/59
[2018-05-24 06:37] VITALS: BP 126/79
[2018-05-24] MEDS: QUEtiapine FUMARATE 200 MG TAB PO SCH ×4 (08:05→20:06)
[2018-05-24] MEDS: GABAPENTIN 300 MG CAP PO SCH ×4 (08:05→20:06)
[2018-05-24] MEDS: ATENOLOL 25 MG TAB PO SCH (08:06)
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
[2018-05-24] MEDS: BENZTROPINE 1 MG TAB PO SCH ×2 (11:45→20:06)
[2018-05-24] MEDS: FLUoxetine 20 MG CAP PO SCH (11:45)
[2018-05-24] MEDS: hydrOXYzine 50 MG TAB PO PRN (17:58)
[2018-05-24] MEDS: NICOTINE POLACRILEX 2 MG GUM PO PRN ×2 (17:58→22:32)
[2018-05-24 18:00] VITALS: BP 112/69
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
[2018-05-25 06:40] VITALS: BP 143/64
[2018-05-25] MEDS: GABAPENTIN 300 MG CAP PO SCH ×2 (08:23→12:17)
[2018-05-25] MEDS: BENZTROPINE 1 MG TAB PO SCH (08:23)
[2018-05-25 08:24] VITALS: BP 137/84
[2018-05-25] MEDS: ATENOLOL 25 MG TAB PO SCH (08:24)
[2018-05-25] MEDS: FLUoxetine 20 MG CAP PO SCH (08:24)
[2018-05-25] MEDS: QUEtiapine FUMARATE 200 MG TAB PO SCH ×2 (08:24→12:17)
[2018-05-25] MEDS: hydrOXYzine 50 MG TAB PO PRN (08:26)
[2018-05-25] MEDS ORDERED: FOLIC ACID 1 MG TAB PO SCH (09:00)
[2018-05-25] MEDS ORDERED: MULTIVITAMINS/MINERALS THERAP 1 TAB PO SCH (09:00)
[2018-05-25] MEDS ORDERED: THIAMINE 100 MG TAB PO SCH (09:00)
[2018-05-25] MEDS ORDERED: LIDOCAINE 5% (LIDODERM) PATCH TD SCH (09:00)
[2018-05-25] MEDS ORDERED: HYDRO50TAB PO (09:39)
[2018-05-25] MEDS ORDERED: QUET1TAB9 PO (09:39)
[2018-05-25] MEDS ORDERED: ATEN25TA PO (09:39)
[2018-05-25] MEDS ORDERED: BENZ-52 PO (09:39)
[2018-05-25] MEDS ORDERED: FLUO20CA19 PO (09:39)
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
[2018-05-25] MEDS ORDERED: **NOTE PATIENT COMMENT** MISC XX SCH (21:00)
== END 2018-05-25 12:45 | disposition home or self-care (01) | DRG 751 ==
LOC: M ED 09:26 → M ED INP 05-23 12:50 → M PSY 05-23 13:20
PROVIDERS: ADMIT Psychiatry & Neurology Psychiatry; ATTEND Psychiatry & Neurology Psychiatry
DX: F33.2 Major depressive disorder, recurrent severe without psychotic features (principal); F41.1 Generalized anxiety disorder; F10.10 Alcohol abuse, uncomplicated; F60.2 Antisocial personality disorder; Z76.5 Malingerer [conscious simulation]; F43.10 Post-traumatic stress disorder, unspecified; Z79.899 Other long term (current) drug therapy; G43.909 Migraine, unspecified, not intractable, without status migrainosus; Z88.0 Allergy status to penicillin; Z91.040 Latex allergy status; Z88.8 Allergy status to other drugs, medicaments and biological substances

== ENCOUNTER 2018-06-02 12:46 | Inpatient (IN) | payer MEDICAID ==
[~2018-06-02] VITALS: Ht 177.8 cm; Wt 121.3 kg
[~2018-06-02 12:46] MED LIST changes: -/DIPH25TAB PO; -/MIRT15TA PO; -ARIP10TAB PO; +ARIP1TAB PO; +BENZ-52 PO; +DIPH1TAB2 PO; +DULO30CA9 PO; +FLUO20CA19 PO; +GABA600T4 PO; +HYDR-4267 PO; -HYDR50TA PO; +HYDRO50TAB PO; +METO-346 PO; -METO12TA PO; +MIRT1TAB20 PO; +SERT-141 PO; -SERT50TA PO
[2018-06-02 13:18] LABS: HEMATOCRIT 43.1 % (42.0-52.0); HEMOGLOBIN 14.5 g/dl (13.5-17.5); MEAN CORPUSCULAR HEMOGLOBIN 30.1 pg (27.0-33.0); MEAN CORPUSCULAR HGB CONC 33.6 g/dl (32.0-36.5); MEAN CORPUSCULAR VOLUME 89.4 fl (80.0-96.0); PLATELET COUNT, AUTOMATED 256 10^3/uL (150-450); RED BLOOD COUNT 4.82 10^6/uL (4.30-6.10)
[2018-06-02 13:41] LABS: AMPHETAMINES LEVEL URINE NEGATIVE (NEGATIVE); BARBITURATES URINE NEGATIVE (NEGATIVE); BENZODIAZEPINES URINE NEGATIVE (NEGATIVE); CANNABINOIDS URINE NEGATIVE (NEGATIVE); COCAINE METABOLITE URINE NEGATIVE (NEGATIVE); METHADONE URINE NEGATIVE (NEGATIVE); OPIATES URINE NEGATIVE (NEGATIVE); PHENCYCLIDINE URINE NEGATIVE (NEGATIVE)
[2018-06-02 13:59] LABS: ACETAMINOPHEN LEVEL < 2.0 UG/ML (10.0-30.0); ALT/SGPT 16 U/L (12-78); BILIRUBIN,DIRECT 0.1 MG/DL (0.0-0.2); BILIRUBIN,TOTAL 0.4 MG/DL (0.2-1.0); BLOOD UREA NITROGEN 10 MG/DL (7-18); CALCIUM LEVEL 8.9 MG/DL (8.5-10.1); CARBON DIOXIDE LEVEL 23 MEQ/L (21-32); CHLORIDE LEVEL 110 MEQ/L (98-107); ETHYL ALCOHOL (ETHANOL) < 0.003 % (0.000-0.010); GLOMERULAR FILTRATION RATE > 60.0 (>60); GLUCOSE, FASTING 133 MG/DL (70-100); POTASSIUM SERUM 3.9 MEQ/L (3.5-5.1); SALICYLATE LEVEL 3.4 MG/DL (5.0-30.0); SODIUM LEVEL 141 MEQ/L (136-145); THYROID STIMULATING HORMONE 0.884 uIU/ML (0.358-3.740); TOTAL PROTEIN 6.8 GM/DL (6.4-8.2)
[2018-06-02] MEDS ORDERED: BENZ-52 PO (17:30)
[2018-06-02] MEDS ORDERED: QUET1TAB9 PO (17:30)
[2018-06-02] MEDS ORDERED: FLUO20CA19 PO (17:30)
[2018-06-02] MEDS ORDERED: HYDR50TA70 PO (17:30)
[2018-06-02] MEDS ORDERED: ATEN25TA PO (17:30)
[2018-06-02] MEDS ORDERED: ACETAMINOPHEN TAB 650MG DOSE (2X325MG) PO PRN (17:45)
[2018-06-02] MEDS ORDERED: MAALOX 30 ML SUSP *UDC PO PRN (17:45)
[2018-06-02] MEDS ORDERED: MOM 30ML SUSPENSION UDC PO PRN (17:45)
[2018-06-02] MEDS ORDERED: traZODone 50 MG TAB PO PRN (17:45)
[2018-06-02 18:31] VITALS: BP 145/100
[2018-06-03 06:39] VITALS: BP 165/110
[2018-06-03 08:29] VITALS: BP 165/110
[2018-06-03] MEDS: NICOTINE 21MG/24HR 1 EA TRANSDERMAL TD SCH (09:00)
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
[2018-06-03] MEDS: FLUoxetine 20 MG CAP PO SCH (12:04)
[2018-06-03] MEDS: BENZTROPINE 1 MG TAB PO SCH ×2 (12:04→22:24)
[2018-06-03] MEDS: GABAPENTIN 300 MG CAP PO SCH ×3 (12:05→22:24)
[2018-06-03] MEDS: ATENOLOL 25 MG TAB PO SCH (12:05)
[2018-06-03] MEDS: QUEtiapine FUMARATE 200 MG TAB PO SCH ×3 (12:05→22:24)
[2018-06-03 18:24] VITALS: BP 150/74
[2018-06-04 06:51] VITALS: BP 113/63
[2018-06-04] MEDS: NICOTINE 21MG/24HR 1 EA TRANSDERMAL TD SCH (08:17)
[2018-06-04] MEDS: ATENOLOL 25 MG TAB PO SCH (08:20)
[2018-06-04] MEDS: GABAPENTIN 300 MG CAP PO SCH ×4 (08:20→20:17)
[2018-06-04] MEDS: FLUoxetine 20 MG CAP PO SCH (08:20)
[2018-06-04] MEDS: BENZTROPINE 1 MG TAB PO SCH ×2 (08:20→20:16)
[2018-06-04] MEDS: QUEtiapine FUMARATE 200 MG TAB PO SCH ×4 (08:20→20:16)
--- NOTE | 2018-06-04 09:07 | MHIPNPDOC ---
[facility] Progress Note Progress Note DATE OF SERVICE: 06/04/18 HISTORY: Patient is a 48 -year-old , male, with a history of mood d/o and substance abuse, d/c from [facility] after found in female pt's room, who p resented to ED endorsing depression and SI with plan "to swallow glass" due to ongoing homelessness and DSS sanction. Has appt at [facility] coming up. Pt in the ED endorsing ongoing depression. He stated he hasbeen compliant on his medications (prozac, seroquel, gabapentin). Stated he hasn't drank in 2wks since last d/c and has been going to the recovery house. VITAL SIGNS: See below. NEW TEST RESULTS: See below. CURRENT MEDICATIONS: See below. MENTAL STATUS EXAMINATION: General Appearance: well groomed, appears stated age, hospital scrubs/clothing Build: overweight Demeanor: average Eye Contact: average Activity: average Behavior: cooperative Speech: clear, spontaneous, reg/rate,rhythm,volume Mood: depressed, anxious Mood depressed Affect: appropriate, congruent, constricted Thought Process: logical/linear, depressed, intact Thought Content (Delusions): none reported, denies SI, HI, AVH Thought Content (Other): none reported, appropriate Thought Content (Aggressive): none reported Perception (Hallucinations): none reported Perception (Other): none reported Cognition (Impairment of): none reported Cognition(Intelligence Est.): average Oriented: Awake, Alert, Oriented times three Insight: fair Judgment: Fair Psychosis: Denies DIAGNOSES: 1. Major Depressive Disorder, severe, recurrent 2. Generalized Anxiety disorder 3. PTSD 4. alcohol use disorder ASSESSMENT:Pt seen and states he continues to feel depressed and states he didn't sleep well last night due to waking up repeatedly. States he's tolerating his medications and finding it beneficial. Encouraged to attend groups and not isolate in his room to improve depression. Denies SI/HI, hallucinations, delusions. States he feels safe here. MANAGEMENT PLAN: continue plan. increase trazodone to 100mg for sleep. Medications: prozac 60mg daily seroquel 200mg qid cogentin 1mg bid for eps atarax 50mg q6hr prn anxiety trazodone 100mg qhs prn insomnia TIME SPENT: 30 minutes. Vital Signs Vital Signs Date Time Temp Pulse Resp B/P (MAP) Pulse Ox O2 Delivery O2 Flow Rate FiO2 06/04/18 08:20 95 126/76 06/04/18 06:51 98.0 14 06/03/18 08:29 96 06/03/18 08:27 Room Air Current Medications Current Medications Acetaminophen (Tylenol Tab) 650 mg Q6HP PRN PO HEADACHE or DISCOMFORT; Start 06/02/18 at 17:45 Al Hydrox/Mg Hydrox/Simethicone (Mylanta) 30 ml Q4HP PRN PO HEARTBURN/INDIGESTION; Start 06/02/18 at 17:45 Atenolol (Tenormin) 25 mg DAILY PO Last administered on 06/04/18 08:20; Start 06/03/18 at 09:00 Benztropine Mesylate (Cogentin) 1 mg BID PO Last administered on 06/04/18 08:20; Start 06/03/18 at 09:00 Fluoxetine HCl (PROzac) 60 mg DAILY PO Last administered on 06/04/18 08:20; Start 06/03/18 at 09:00 Gabapentin (Neurontin) 600 mg QID PO Last administered on 06/04/18 08:20; Start 06/03/18 at 13:00 Home Med (Med Rec Complete!) ASDIRECTED XX ; Start 06/02/18 at 17:45; Stop 06/02/18 at 17:45; Status DC Hydroxyzine HCl (Atarax) 50 mg Q6HP PRN PO ANXIETY/AGITATION; Start 06/03/18 at 12:00 Magnesium Hydroxide (Milk Of Magnesia) 30 ml DAILYPRN PRN PO CONSTIPATION; Start 06/02/18 at 17:45 Nicotine (Nicoderm Cq 21mg) 1 patch DAILY TD ; Start 06/03/18 at 09:00 Quetiapine Fumarate (SEROquel) 200 mg QID PO Last administered on 06/04/18 08:20; Start 06/03/18 at 13:00 Trazodone HCl (Desyrel) 50 mg QHSP PRN PO INSOMNIA; Start 06/02/18 at 17:45 Allergies Coded Allergies: Penicillins (Verified Allergy, Intermediate, RASH, 05/22/18) latex (Verified Allergy, Unknown, RASH, 05/22/18) aripiprazole (Verified Adverse Reaction, Severe, SEVERE AKATHESIA, 05/22/18) IRENE CHRISTIANSON DO Jun 04, 2018 9:07 am
[2018-06-04] MEDS ORDERED: traZODone 100 MG TAB PO PRN (09:15)
[2018-06-04] MEDS: hydrOXYzine 50 MG TAB PO PRN (11:35)
[2018-06-04 18:00] VITALS: BP 127/72
[2018-06-05 06:39] VITALS: BP 119/70
--- NOTE | 2018-06-05 08:40 | MHIPNPDOC ---
[facility] Progress Note Progress Note DATE OF SERVICE: 06/05/18 HISTORY: Patient is a 48 -year-old , male, with a history of mood d/o and substance abuse, d/c from [facility] after found in female pt's room, who p resented to ED endorsing depression and SI with plan "to swallow glass" due to ongoing homelessness and DSS sanction. Has appt at [facility] coming up. Pt in the ED endorsing ongoing depression. He stated he hasbeen compliant on his medications (prozac, seroquel, gabapentin). Stated he hasn't drank in 2wks since last d/c and has been going to the recovery house. VITAL SIGNS: See below. NEW TEST RESULTS: See below. CURRENT MEDICATIONS: See below. MENTAL STATUS EXAMINATION: General Appearance: well groomed, appears stated age, hospital scrubs/clothing Build: overweight Demeanor: average Eye Contact: average Activity: akathisia of his feet Behavior: cooperative Speech: clear, spontaneous, reg/rate,rhythm,volume Mood: depressed, anxious Mood "not as bad" Affect: appropriate, congruent, constricted Thought Process: logical/linear, depressed, intact Thought Content (Delusions): none reported, denies SI, HI, AVH Thought Content (Other): none reported, appropriate Thought Content (Aggressive): none reported Perception (Hallucinations): none reported Perception (Other): none reported Cognition (Impairment of): none reported Cognition(Intelligence Est.): average Oriented: Awake, Alert, Oriented times three Insight: fair Judgment: Fair Psychosis: Denies DIAGNOSES: 1. Major Depressive Disorder, severe, recurrent 2. Generalized Anxiety disorder 3. PTSD 4. alcohol use disorder ASSESSMENT:Pt seen and states he continues to feel depressed but "not as bad." Feels the increase in prozac is beneficial and he's tolerating it well. Appears to have akathisia of his feet that he states improves after taking cogentin. Advised to let me know if it doesn't so that the cogentin can be increased. States he slept better last night after trazodone increased. States he's tolerating his medications and finding it beneficial. Encouraged to attend groups and not isolate in his room to improve depression. Denies SI/HI, hallucinations, delusions. States he feels safe here. MANAGEMENT PLAN: continue plan. Medications: prozac 60mg daily seroquel 200mg qid cogentin 1mg bid for eps atarax 50mg q6hr prn anxiety trazodone 100mg qhs prn insomnia TIME SPENT: 30 minutes. Vital Signs Vital Signs Date Time Temp Pulse Resp B/P (MAP) Pulse Ox O2 Delivery O2 Flow Rate FiO2 06/05/18 06:39 97.8 56 14 119/70 (86) 06/04/18 09:42 Room Air 06/03/18 08:29 96 Current Medications Current Medications Acetaminophen (Tylenol Tab) 650 mg Q6HP PRN PO HEADACHE or DISCOMFORT; Start 06/02/18 at 17:45 Al Hydrox/Mg Hydrox/Simethicone (Mylanta) 30 ml Q4HP PRN PO HEARTBURN/INDIGESTION; Start 06/02/18 at 17:45 Atenolol (Tenormin) 25 mg DAILY PO Last administered on 06/04/18at 08:20; Start 06/03/18 at 09:00 Benztropine Mesylate (Cogentin) 1 mg BID PO Last administered on 06/04/18at 20 :16; Start 06/03/18 at 09:00 Fluoxetine HCl (PROzac) 60 mg DAILY PO Last administered on 06/04/18at 08:20; Start 06/03/18 at 09:00 Gabapentin (Neurontin) 600 mg QID PO Last administered on 06/04/18at 20:17; Start 06/03/18 at 13:00 Home Med (Med Rec Complete!) ASDIRECTED XX ; Start 06/02/18 at 17:45; Stop 06/02/18 at 17:45; Status DC Hydroxyzine HCl (Atarax) 50 mg Q6HP PRN PO ANXIETY/AGITATION Last administered on 06/04/18at 11:35; Start 06/03/18 at 12:00 Magnesium Hydroxide (Milk Of Magnesia) 30 ml DAILYPRN PRN PO CONSTIPATION; Start 06/02/18 at 17:45 Nicotine (Nicoderm Cq 21mg) 1 patch DAILY TD ; Start 06/03/18 at 09:00 Quetiapine Fumarate (SEROquel) 200 mg QID PO Last administered on 06/04/18at 20:16; Start 06/03/18 at 13:00 Trazodone HCl (Desyrel) 50 mg QHSP PRN PO INSOMNIA; Start 06/02/18 at 17:45; Status Cancel Trazodone HCl (Desyrel) 100 mg QHSP PRN PO INSOMNIA; Start 06/04/18 at 09:15 Allergies Coded Allergies: Penicillins (Verified Allergy, Intermediate, RASH, 05/22/18) latex (Verified Allergy, Unknown, RASH, 05/22/18) aripiprazole (Verified Adverse Reaction, Severe, SEVERE AKATHESIA, 05/22/18) IRENE CHRISTIANSON DO Jun 05, 2018 8:40 am
[2018-06-05] MEDS: GABAPENTIN 300 MG CAP PO SCH ×4 (08:56→20:47)
[2018-06-05] MEDS: ATENOLOL 25 MG TAB PO SCH (08:56)
[2018-06-05] MEDS: FLUoxetine 20 MG CAP PO SCH (08:56)
[2018-06-05] MEDS: QUEtiapine FUMARATE 200 MG TAB PO SCH ×4 (08:56→20:47)
[2018-06-05] MEDS: BENZTROPINE 1 MG TAB PO SCH ×2 (08:56→20:47)
[2018-06-05] MEDS: NICOTINE 21MG/24HR 1 EA TRANSDERMAL TD SCH (08:57)
[2018-06-05 18:07] VITALS: BP 126/66
[2018-06-06] MEDS: hydrOXYzine 50 MG TAB PO PRN (06:51)
[2018-06-06 07:02] VITALS: BP 116/71
[2018-06-06] MEDS: NICOTINE 21MG/24HR 1 EA TRANSDERMAL TD SCH (08:25)
[2018-06-06] MEDS: BENZTROPINE 1 MG TAB PO SCH (08:27)
[2018-06-06] MEDS: ATENOLOL 25 MG TAB PO SCH (08:27)
[2018-06-06] MEDS: FLUoxetine 20 MG CAP PO SCH (08:27)
[2018-06-06] MEDS: GABAPENTIN 300 MG CAP PO SCH ×4 (08:27→20:53)
[2018-06-06] MEDS: QUEtiapine FUMARATE 200 MG TAB PO SCH ×4 (08:27→20:53)
--- NOTE | 2018-06-06 10:25 | MHIPNPDOC ---
[facility] Progress Note Progress Note DATE OF SERVICE: 06/06/18 HISTORY: Patient is a 48 -year-old , male, with a history of mood d/o and substance abuse, d/c from [facility] after found in female pt's room, who p resented to ED endorsing depression and SI with plan "to swallow glass" due to ongoing homelessness and DSS sanction. Has appt at [facility] coming up. Pt in the ED endorsing ongoing depression. He stated he hasbeen compliant on his medications (prozac, seroquel, gabapentin). Stated he hasn't drank in 2wks since last d/c and has been going to the recovery house. VITAL SIGNS: See below. NEW TEST RESULTS: See below. CURRENT MEDICATIONS: See below. MENTAL STATUS EXAMINATION: General Appearance: well groomed, appears stated age, hospital scrubs/clothing Build: overweight Demeanor: average Eye Contact: average Activity: akathisia of his feet Behavior: cooperative Speech: clear, spontaneous, reg/rate,rhythm,volume Mood: depressed, anxious Mood "depressed" Affect: appropriate, congruent, constricted Thought Process: logical/linear, depressed, intact Thought Content (Delusions): none reported, denies SI, HI, AVH Thought Content (Other): none reported, appropriate Thought Content (Aggressive): none reported Perception (Hallucinations): none reported Perception (Other): none reported Cognition (Impairment of): none reported Cognition(Intelligence Est.): average Oriented: Awake, Alert, Oriented times three Insight: fair Judgment: Fair Psychosis: Denies DIAGNOSES: 1. Major Depressive Disorder, severe, recurrent 2. Generalized Anxiety disorder 3. PTSD 4. alcohol use disorder ASSESSMENT:Pt seen and states he continues to feel depressed and agreeable to increasing prozac to 80mg as had been effective at that dose previously. States anxiety is improving Feels tolerating prozac well. Appears to have akathisia of his feet and agreeable to increasing cogentin to improve it. States he slept well last night. States he's tolerating his medications and finding it beneficial. Encouraged to attend groups and not isolate in his room to improve depression. Denies SI/HI, hallucinations, delusions. States he feels safe here. MANAGEMENT PLAN: continue plan. increased prozac and cogentin. d/c event planner working on rehab bed for pt. Medications: prozac 80mg daily seroquel 200mg qid cogentin 2mg bid for eps atarax 50mg q6hr prn anxiety trazodone 100mg qhs prn insomnia TIME SPENT: 30 minutes. Vital Signs Vital Signs Date Time Temp Pulse Resp B/P (MAP) Pulse Ox O2 Delivery O2 Flow Rate FiO2 06/06/18 08:27 94 132/78 06/06/18 07:42 Room Air 06/06/18 07:02 98.5 16 06/03/18 08:29 96 Current Medications Current Medications Acetaminophen (Tylenol Tab) 650 mg Q6HP PRN PO HEADACHE or DISCOMFORT; Start 06/02/18 at 17:45 Al Hydrox/Mg Hydrox/Simethicone (Mylanta) 30 ml Q4HP PRN PO HEARTBURN/INDIGESTION; Start 06/02/18 at 17:45 Atenolol (Tenormin) 25 mg DAILY PO Last administered on 06/06/18 08:27; Start 06/03/18 at 09:00 Benztropine Mesylate (Cogentin) 1 mg BID PO Last administered on 06/06/18 08:27; Start 06/03/18 at 09:00 Fluoxetine HCl (PROzac) 60 mg DAILY PO Last administered on 06/06/18 08:27; Start 06/03/18 at 09:00 Gabapentin (Neurontin) 600 mg QID PO Last administered on 06/06/18 08:27; Start 06/03/18 at 13:00 Home Med (Med Rec Complete!) ASDIRECTED XX ; Start 06/02/18 at 17:45; Stop 06/02/18 at 17:45; Status DC Hydroxyzine HCl (Atarax) 50 mg Q6HP PRN PO ANXIETY/AGITATION Last administered on 06/06/18at 06:51; Start 06/03/18 at 12:00 Magnesium Hydroxide (Milk Of Magnesia) 30 ml DAILYPRN PRN PO CONSTIPATION; Start 06/02/18 at 17:45 Nicotine (Nicoderm Cq 21mg) 1 patch DAILY TD ; Start 06/03/18 at 09:00 Quetiapine Fumarate (SEROquel) 200 mg QID PO Last administered on 06/06/18at 08:27; Start 06/03/18 at 13:00 Trazodone HCl (Desyrel) 50 mg QHSP PRN PO INSOMNIA; Start 06/02/18 at 17:45; Status Cancel Trazodone HCl (Desyrel) 100 mg QHSP PRN PO INSOMNIA Last administered on 06/05/18at 20:47; Start 06/04/18 at 09:15 Allergies Coded Allergies: Penicillins (Verified Allergy, Intermediate, RASH, 05/22/18) latex (Verified Allergy, Unknown, RASH, 05/22/18) aripiprazole (Verified Adverse Reaction, Severe, SEVERE AKATHESIA, 05/22/18) IRENE CHRISTIANSON DO Jun 06, 2018 10:10 am
[2018-06-06] MEDS ORDERED: FLUoxetine 10 MG CAP PO ONE (10:30)
[2018-06-06] MEDS ORDERED: BENZTROPINE 1 MG TAB PO ONE (10:30)
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
[2018-06-06 18:00] VITALS: BP 140/90
[2018-06-06] MEDS: BENZTROPINE 2 MG TAB PO SCH (20:53)
[2018-06-07 06:41] VITALS: BP 138/75
[2018-06-07] MEDS ORDERED: **PENDING PPD ENTRY XX SCH (09:00)
[2018-06-07] MEDS: NICOTINE 21MG/24HR 1 EA TRANSDERMAL TD SCH (09:00)
[2018-06-07] MEDS: GABAPENTIN 300 MG CAP PO SCH ×4 (09:08→20:44)
[2018-06-07] MEDS: BENZTROPINE 2 MG TAB PO SCH ×2 (09:08→20:43)
[2018-06-07] MEDS: QUEtiapine FUMARATE 200 MG TAB PO SCH ×4 (09:08→20:44)
[2018-06-07] MEDS: FLUoxetine 20 MG CAP PO SCH (09:08)
[2018-06-07] MEDS: ATENOLOL 25 MG TAB PO SCH (09:09)
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
[2018-06-07] MEDS ORDERED: TUBERCULIN PPD 5 UNITS/0.1 ML ID ONE ×2 (14:45→16:00)
[2018-06-07] MEDS: PROPRANOLOL 10 MG TAB PO SCH ×2 (15:14→20:44)
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
[2018-06-07 18:22] VITALS: BP 136/87
[2018-06-07] MEDS: LOSARTAN 25 MG TAB PO SCH (20:43)
[2018-06-08] MEDS: hydrOXYzine 50 MG TAB PO PRN (06:12)
[2018-06-08 06:40] VITALS: BP 136/78
[2018-06-08] MEDS: GABAPENTIN 300 MG CAP PO SCH ×4 (08:03→20:06)
[2018-06-08] MEDS: QUEtiapine FUMARATE 200 MG TAB PO SCH ×4 (08:03→20:07)
[2018-06-08] MEDS: BENZTROPINE 2 MG TAB PO SCH ×2 (08:03→20:07)
[2018-06-08] MEDS: FLUoxetine 20 MG CAP PO SCH (08:03)
[2018-06-08] MEDS: PROPRANOLOL 10 MG TAB PO SCH ×3 (08:03→20:06)
[2018-06-08] MEDS: NICOTINE 21MG/24HR 1 EA TRANSDERMAL TD SCH (08:05)
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
--- NOTE | 2018-06-08 15:06 | REP ---
LUMBAR SPINE, FIVE VIEWS: HISTORY: Back pain. There is no acute fracture or subluxation. The L2-3 through L5-S1 intervertebral discs are decreased in height consistent with disc degeneration. Osteophytes are present on L3 through 5. There is narrowing of the L5-S1 facet joints. IMPRESSION: Degenerative change as described above. Electronically Signed by Blake Casas MD 06/08/2018 03:10 P
[2018-06-08 18:15] VITALS: BP 136/84
[2018-06-08] MEDS: LOSARTAN 25 MG TAB PO SCH (20:07)
[2018-06-09] MEDS: hydrOXYzine 50 MG TAB PO PRN (06:42)
[2018-06-09 06:44] VITALS: BP 131/84
[2018-06-09] MEDS: PROPRANOLOL 10 MG TAB PO SCH ×3 (08:20→22:26)
[2018-06-09] MEDS: GABAPENTIN 300 MG CAP PO SCH ×4 (08:20→22:25)
[2018-06-09] MEDS: BENZTROPINE 2 MG TAB PO SCH ×2 (08:20→22:24)
[2018-06-09] MEDS: QUEtiapine FUMARATE 200 MG TAB PO SCH ×4 (08:20→22:24)
[2018-06-09] MEDS: NICOTINE 21MG/24HR 1 EA TRANSDERMAL TD SCH (08:21)
[2018-06-09] MEDS: FLUoxetine 20 MG CAP PO SCH (08:21)
[2018-06-09] MEDS ORDERED: PPD DOCUMENTATION ENTRY MISC XX SCH (10:00)
--- NOTE | 2018-06-09 10:19 | MHIPNPDOC ---
[facility] Progress Note Progress Note DATE OF SERVICE: 06/09/18 HISTORY: Patient is a 48 -year-old , male, with a history of mood d/o and substance abuse, d/c from [facility] after found in female pt's room, who p resented to ED endorsing depression and SI with plan "to swallow glass" due to ongoing homelessness and DSS sanction. Has appt at [facility] coming up. Pt in the ED endorsing ongoing depression. He stated he hasbeen compliant on his medications (prozac, seroquel, gabapentin). Stated he hasn't drank in 2wks since last d/c and has been going to the recovery house. VITAL SIGNS: See below. NEW TEST RESULTS: See below. CURRENT MEDICATIONS: See below. MENTAL STATUS EXAMINATION: General Appearance: well groomed, appears stated age, hospital scrubs/clothing Build: overweight Demeanor: average Eye Contact: average Activity: greatly improved akathisia of his feet Behavior: cooperative Speech: clear, spontaneous, reg/rate,rhythm,volume Mood: less depressed, less anxious Mood "ok" Affect: appropriate, congruent, less constricted Thought Process: logical/linear, less depressed, intact Thought Content (Delusions): none reported, denies SI, HI, AVH Thought Content (Other): none reported, appropriate Thought Content (Aggressive): none reported Perception (Hallucinations): none reported Perception (Other): none reported Cognition (Impairment of): none reported Cognition(Intelligence Est.): average Oriented: Awake, Alert, Oriented times three Insight: fair Judgment: Fair Psychosis: Denies DIAGNOSES: 1. Major Depressive Disorder, severe, recurrent 2. Generalized Anxiety disorder 3. PTSD 4. alcohol use disorder ASSESSMENT:Pt seen and states he feels "ok" today. States his mood, anxiety, akathisia are improved. States he slept well last night. States he's tolerating his medications and finding it beneficial. Is attending groups and finding them helpful. States he's looking forward to go to [employer] program on Wednesday as he believes it will be beneficial for him and his continual improvement with his mental health. Denies SI/HI, hallucinations, delusions. S tates he feels safe here. MANAGEMENT PLAN: continue plan. start inderal Medications: prozac 80mg daily seroquel 200mg qid cogentin 2mg bid for eps atarax 50mg q6hr prn anxiety trazodone 100mg qhs prn insomnia inderal 10mg tid TIME SPENT: 30 minutes. Vital Signs Vital Signs Date Time Temp Pulse Resp B/P (MAP) Pulse Ox O2 Delivery O2 Flow Rate FiO2 06/09/18 08:20 61 131/84 06/09/18 08:12 Room Air 06/09/18 06:44 98.5 16 06/08/18 18:15 96 Current Medications Current Medications Acetaminophen (Tylenol Tab) 650 mg Q6HP PRN PO HEADACHE or DISCOMFORT; Start 06/02/18 at 17:45 Al Hydrox/Mg Hydrox/Simethicone (Mylanta) 30 ml Q4HP PRN PO HEARTBURN/INDIGESTION; Start 06/02/18 at 17:45 Atenolol (Tenormin) 25 mg DAILY PO Last administered on 06/07/18at 09:09; Start 06/03/18 at 09:00; Stop 06/07/18 at 09:28; Status DC Benztropine Mesylate (Cogentin) 1 mg BID PO Last administered on 06/06/18 08:27; Start 06/03/18 at 09:00; Stop 06/06/18 at 10:26; Status DC Benztropine Mesylate (Cogentin) 2 mg BID PO Last administered on 06/09/18at 08:20; Start 06/06/18 at 21:00 Fluoxetine HCl (PROzac) 60 mg DAILY PO Last administered on 06/06/18 08:27; Start 06/03/18 at 09:00; Stop 06/06/18 at 10:26; Status DC Fluoxetine HCl (PROzac) 80 mg DAILY PO Last administered on 06/09/18at 08:21; Start 06/07/18 at 09:00 Gabapentin (Neurontin) 600 mg QID PO Last administered on 06/09/18at 08:20; Start 06/03/18 at 13:00 Home Med (Med Rec Complete!) ASDIRECTED XX ; Start 06/02/18 at 17:45; Stop 06/02/18 at 17:45; Status DC Hydroxyzine HCl (Atarax) 50 mg Q6HP PRN PO ANXIETY/AGITATION Last administered on 06/09/18at 06:42; Start 06/03/18 at 12:00 Losartan Potassium (Cozaar) 25 mg QHS PO Last administered on 06/08/18at 20:07; Start 06/07/18 at 21:00 Magnesium Hydroxide (Milk Of Magnesia) 30 ml DAILYPRN PRN PO CONSTIPATION; Start 06/02/18 at 17:45 Nicotine (Nicoderm Cq 21mg) 1 patch DAILY TD ; Start 06/03/18 at 09:00 Non-Formulary Medication ( See Comment Field Below ) SEE COMMENTS SECTION 1T@10 XX ; Start 06/09/18 at 10:00; Stop 06/10/18 at 09:59; Status UNV Non-Formulary Medication ( See Comment Field Below ) SEE LABEL COMMENTS DAILY XX ; Start 06/07/18 at 09:00; Stop 06/07/18 at 15:12; Status DC Propranolol HCl (Inderal) 10 mg TID PO Last administered on 06/09/18at 08:20; Start 06/07/18 at 16:00 Quetiapine Fumarate (SEROquel) 200 mg QID PO Last administered on 06/09/18at 08:20; Start 06/03/18 at 13:00 Trazodone HCl (Desyrel) 50 mg QHSP PRN PO INSOMNIA; Start 06/02/18 at 17:45; Status Cancel Trazodone HCl (Desyrel) 100 mg QHSP PRN PO INSOMNIA Last administered on 06/05/18at 20:47; Start 06/04/18 at 09:15 Allergies Coded Allergies: Penicillins (Verified Allergy, Intermediate, RASH, 05/22/18) latex (Verified Allergy, Unknown, RASH, 05/22/18) aripiprazole (Verified Adverse Reaction, Severe, SEVERE AKATHESIA, 05/22/18) IRENE CHRISTIANSON DO Jun 09, 2018 10:19 am
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
[2018-06-09] MEDS ORDERED: IBUPROFEN 400 MG TAB PO PRN (15:00)
[2018-06-09] MEDS ORDERED: PPD DOCUMENTATION ENTRY MISC XX ONE (16:00)
[2018-06-09 18:05] VITALS: BP 148/88
[2018-06-09] MEDS: ACETAMINOPHEN 500 MG TAB PO SCH (22:25)
[2018-06-09] MEDS: LOSARTAN 25 MG TAB PO SCH (22:25)
[2018-06-10] MEDS: hydrOXYzine 50 MG TAB PO PRN ×2 (05:16→20:31)
[2018-06-10 06:59] VITALS: BP 145/52
[2018-06-10] MEDS: BENZTROPINE 2 MG TAB PO SCH ×2 (08:08→20:31)
[2018-06-10] MEDS: PROPRANOLOL 10 MG TAB PO SCH ×3 (08:09→20:31)
[2018-06-10] MEDS: ACETAMINOPHEN 500 MG TAB PO SCH ×2 (08:09→20:30)
[2018-06-10] MEDS: GABAPENTIN 300 MG CAP PO SCH ×4 (08:10→20:31)
[2018-06-10] MEDS: FLUoxetine 20 MG CAP PO SCH (08:10)
[2018-06-10] MEDS: QUEtiapine FUMARATE 200 MG TAB PO SCH ×4 (08:10→20:30)
[2018-06-10] MEDS: NICOTINE 21MG/24HR 1 EA TRANSDERMAL TD SCH (08:10)
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
--- NOTE | 2018-06-10 09:07 | REP ---
MR LUMBAR SPINE WITHOUT CONTRAST: HISTORY: Radiculopathy. The examination is available for review at 8:10 am 06/10/2018. Decreased signal intensity on T2-weighted images is present in T12-L1 and L2-3 through L5-S1 intervertebral discs. The L2-3 through L5-S1 intervertebral discs are decreased in height. These findings are consistent with disc degeneration. A diffuse disc bulge is present at the L1-2 level. There is an increase in the amount of epidural fat. There is minimal compression of the thecal sac. There is hypertrophy of the posterior articulating facets. The L1 nerves exit the neural foramina without compression. A diffuse disc bulge is present at the L2-3 level. There is an increase in the amount of epidural fat. There is mild compression of the thecal sac. There is hypertrophy of the posterior articulating facets The L2 nerves exit the neural foramina without compression. A diffuse disc bulge is present at the L3-4 level. There is hypertrophy of the ligamenta flava and posterior articulating facets. There is an increase in the amount of the epidural fat. These findings produce moderate findings produce minimal central canal stenosis. The L3 nerves exit the neural foramina without compression. A diffuse disc bulge is present at the L4-5 level. There is hypertrophy of the ligamenta flava and posterior articulating facets. These findings produce minimal central canal stenosis. There is compression of the L4 nerves in the neural foramina. A diffuse disc bulge is present at the L5-S1 level. This abuts the thecal sac. There is hypertrophy of the posterior articulating facets. The L5 nerves exit the neural foramina without compression. The conus medullaris is normal in appearance terminating at the level of the T12-L1 intervertebral discs. Increased signal intensity on T2-weighted images is present in the end plates of the L4 and 5 L5 vertebral bodies. This represents degenerative changes. IMPRESSION: 1. Diffuse disc bulge and epidural lipomatosis at the L1-2 level with minimal thecal sac compression. 2. Diffuse disc bulge and epidural lipomatosis at the L2-3 level with mild thecal sac compression. 3. Moderate central canal stenosis at the L3-4 level secondary to disc bulge, ligamentous and facet hypertrophy and epidural lipomatosis. 4. Minimal central canal stenosis at the L4-5 level secondary to disc bulge, ligamentous and facet hypertrophy. There is compression of the L4 nerves in the neural foramina. 5. Diffuse disc bulge at the L5-S1 level. This abuts the thecal sac. Electronically Signed by Blake Casas MD 06/10/2018 09:10 A
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
[2018-06-10] MEDS ORDERED: IBUPROFEN 400 MG TAB PO PRN (16:30)
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
[2018-06-10 18:03] VITALS: BP 135/78
[2018-06-10] MEDS: LOSARTAN 25 MG TAB PO SCH (20:31)
[2018-06-11] MEDS: hydrOXYzine 50 MG TAB PO PRN (06:27)
[2018-06-11 07:02] VITALS: BP 138/86
[2018-06-11] MEDS: GABAPENTIN 300 MG CAP PO SCH ×4 (08:27→20:22)
[2018-06-11] MEDS: PROPRANOLOL 10 MG TAB PO SCH ×3 (08:28→20:22)
[2018-06-11] MEDS: QUEtiapine FUMARATE 200 MG TAB PO SCH ×4 (08:28→20:21)
[2018-06-11] MEDS: ACETAMINOPHEN 500 MG TAB PO SCH ×2 (08:28→20:22)
[2018-06-11] MEDS: BENZTROPINE 2 MG TAB PO SCH ×2 (08:28→20:22)
[2018-06-11] MEDS: FLUoxetine 20 MG CAP PO SCH (08:28)
[2018-06-11] MEDS ORDERED: FIORICET TAB PO PRN (08:45)
[2018-06-11] MEDS: NICOTINE POLACRILEX 2 MG GUM PO PRN ×3 (11:12→20:25)
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
[2018-06-11 18:00] VITALS: BP 132/76
[2018-06-11] MEDS: LOSARTAN 25 MG TAB PO SCH (20:22)
[2018-06-12 06:23] VITALS: BP 135/65
[2018-06-12] MEDS: hydrOXYzine 50 MG TAB PO PRN (06:26)
[2018-06-12] MEDS: NICOTINE POLACRILEX 2 MG GUM PO PRN ×3 (06:26→15:51)
[2018-06-12] MEDS: PROPRANOLOL 10 MG TAB PO SCH ×3 (08:12→21:00)
[2018-06-12] MEDS: FLUoxetine 20 MG CAP PO SCH (08:12)
[2018-06-12] MEDS: BENZTROPINE 2 MG TAB PO SCH ×2 (08:12→20:29)
[2018-06-12] MEDS: GABAPENTIN 300 MG CAP PO SCH ×4 (08:12→20:28)
[2018-06-12] MEDS: ACETAMINOPHEN 500 MG TAB PO SCH ×2 (08:12→20:29)
[2018-06-12] MEDS: QUEtiapine FUMARATE 200 MG TAB PO SCH ×4 (08:12→20:29)
[2018-06-12] MEDS ORDERED: IBUPROFEN 600 MG TAB PO ONE ×2 (10:15→19:00)
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
[2018-06-12 18:00] VITALS: BP 134/90
[2018-06-12] MEDS: LOSARTAN 25 MG TAB PO SCH (20:30)
[2018-06-12 21:25] VITALS: BP 100/76
[2018-06-13] MEDS: hydrOXYzine 50 MG TAB PO PRN (06:10)
[2018-06-13] MEDS: NICOTINE POLACRILEX 2 MG GUM PO PRN ×2 (06:10→09:32)
[2018-06-13 06:16] VITALS: BP 133/83
[2018-06-13 08:33] VITALS: BP 168/97
[2018-06-13] MEDS: PROPRANOLOL 10 MG TAB PO SCH (08:33)
[2018-06-13] MEDS: BENZTROPINE 2 MG TAB PO SCH (08:33)
[2018-06-13] MEDS: FLUoxetine 20 MG CAP PO SCH (08:33)
[2018-06-13] MEDS: GABAPENTIN 300 MG CAP PO SCH (08:34)
[2018-06-13] MEDS: ACETAMINOPHEN 500 MG TAB PO SCH (08:34)
[2018-06-13] MEDS: QUEtiapine FUMARATE 200 MG TAB PO SCH (08:34)
[2018-06-13] MEDS ORDERED: QUET1TAB9 PO (08:39)
[2018-06-13] MEDS ORDERED: PROP10TA56 PO (08:39)
[2018-06-13] MEDS ORDERED: COZA1TAB PO (08:39)
[2018-06-13] MEDS ORDERED: GABA-843 PO (08:39)
[2018-06-13] MEDS ORDERED: HYDRO50TAB PO (08:39)
[2018-06-13] MEDS ORDERED: BENZ2TAB5 PO (08:39)
[2018-06-13] MEDS ORDERED: FLUO20CA19 PO (08:39)
[2018-06-13] MEDS ORDERED: TRAZ10TA PO (08:39)
--- NOTE | 2018-06-13 08:46 | MHDSPDOC ---
[facility] Discharge Summary Discharge Summary DATE OF ADMISSION: Jun 02, 2018 at 5:31 pm DATE OF DISCHARGE: June 13, 2018 DISCHARGE DIAGNOSES: 1. Major Depressive Disorder, severe, recurrent 2. Generalized Anxiety disorder 3. PTSD 4. alcohol use disorder REASON FOR ADMISSION: Patient is a 48 -year-old , male, with a history of mood d/o and substance abuse, d/c from [facility] after found in female pt's room, who presented to ED endorsing depression and SI with plan "to swallow glass" due to ongoing homelessness and DSS sanction. Has appt at [facility] coming up. Pt in the ED endorsing ongoing depression. He stated he hasbeen compliant on his medications (prozac, seroquel, gabapentin). Stated he hasn't drank in 2wks since last d/c and has been going to the [facility]. CONSULTANTS INVOLVED: medicine TREATMENT AND PROGRESS ON THE UNIT : Pt was admitted to [facility], seen for psychiatric assessment and restarted on his outpatient medication prozac increased to 80mg daily, cogentin increased to 2mg bid, and seroquel 200mg qid. He was started on inderal 10mg tid for akathisia of his feet and his atenolol was discontinued. He was provided vistaril 50mg q6hr prn anxiety and trazodone 100mg qhs prn insomnia. Pt found his medications beneficial and tolerated them well. He attended groups daily during his stay. His symptoms improved with treatment. On day of discharge he denied depression, anxiety, insomnia, SI/HI, hallucinations, delusions. He was discharged to [facility] in [place]. He felt safe for discharge. DISCHARGE ASSESSMENT: Pt seen and states he feels "good" today and that he's looking forward to going to the [facility]. States his mood, anxiety, akathisia are improved. States he slept well last night. States he's tolerating his medications and finding it beneficial. Is attending groups and finding them helpful. Denies depression, anxiety, insomnia, SI/HI, hallucinations, delusions. States he feels safe to be discharged today. MENTAL STATUS EXAMINATION ON DISCHARGE: General Appearance: well groomed, appears stated age, hospital scrubs/clothing Build: overweight Demeanor: average Eye Contact: average Activity: average Speech: clear, spontaneous, reg/rate,rhythm,volume Mood: full, euthymic Mood "good" Affect: appropriate, congruent, euthymic Thought Process: logical/linear, less depressed, intact Thought Content (Delusions): none reported, denies SI, HI, AVH Thought Content (Other): none reported, appropriate Thought Content (Aggressive): none reported Perception (Hallucinations): none reported Perception (Other): none reported Cognition (Impairment of): none reported Cognition(Intelligence Est.): average Oriented: Awake, Alert, Oriented times three Insight: good Judgment: good Psychosis: Denies MEDICATIONS ON DISCHARGE: prozac 80mg daily seroquel 200mg qid cogentin 2mg bid for eps atarax 50mg q6hr prn anxiety trazodone 100mg qhs prn insomnia inderal 10mg tid PLAN/FOLLOWUP ARRANGEMENTS: D/c to [facility] in [place]. The amount of time spent in the coordination of care for this patient was approximately 30 minutes. Vital Signs/I&Os Vital Signs Date Time Temp Pulse Resp B/P (MAP) Pulse Ox O2 Delivery O2 Flow Rate FiO2 06/13/18 08:33 83 168/97 06/13/18 06:16 98.0 16 06/09/18 08:12 Room Air 06/08/18 18:15 96 Medications Scheduled Benztropine Mesylate (Benztropine Mesylate) 2 Mg Tablet, 2 MG PO BID for eps, #60 Fluoxetine Hcl (Fluoxetine HCl) 20 Mg Capsule, 80 MG PO DAILY for mood, #120 Gabapentin (Gabapentin) 300 Mg Capsule, 600 MG PO QID for pain, #120 Losartan Potassium (Cozaar) 25 Mg Tablet, 25 MG PO QHS for cholesterol, #60 Propranolol HCl (Propranolol HCl) 10 Mg Tablet, 10 MG PO TID for anxiety, #90 Quetiapine Fumarate (Quetiapine Fumarate) 200 Mg Tablet, 200 MG PO QID for bipolar, #120 Scheduled PRN Hydroxyzine HCl (Hydroxyzine HCl) 50 Mg Tablet, 50 MG PO Q6HP PRN for ANXIETY/AGITATION, #90 Trazodone HCl (Trazodone HCl) 100 Mg Tablet, 100 MG PO QHSP PRN for INSOMNIA, #30 Allergies Coded Allergies: Penicillins (Verified Allergy, Intermediate, RASH, 05/22/18) latex (Verified Allergy, Unknown, RASH, 05/22/18) aripiprazole (Verified Adverse Reaction, Severe, SEVERE AKATHESIA, 05/22/18) IRENE CHRISTIANSON DO Jun 13, 2018 8:46 am
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
== END 2018-06-13 10:00 | disposition home or self-care (01) | DRG 751 ==
LOC: M ED 12:46 → M ED INP 17:31 → M PSY 18:21
PROVIDERS: ADMIT Psychiatry & Neurology Psychiatry; ATTEND Psychiatry & Neurology Psychiatry
DX: F33.2 Major depressive disorder, recurrent severe without psychotic features (principal); F41.1 Generalized anxiety disorder; F43.10 Post-traumatic stress disorder, unspecified; F10.10 Alcohol abuse, uncomplicated; F17.200 Nicotine dependence, unspecified, uncomplicated; G43.709 Chronic migraine without aura, not intractable, without status migrainosus; G44.009 Cluster headache syndrome, unspecified, not intractable; M51.16 Intervertebral disc disorders with radiculopathy, lumbar region; I10 Essential (primary) hypertension; Z81.8 Family history of other mental and behavioral disorders; G25.71 Drug induced akathisia; Z62.811 Personal history of psychological abuse in childhood; Z62.810 Personal history of physical and sexual abuse in childhood; Z88.0 Allergy status to penicillin; Z88.8 Allergy status to other drugs, medicaments and biological substances; Z91.040 Latex allergy status; Z79.899 Other long term (current) drug therapy; Z87.820 Personal history of traumatic brain injury; Z91.5 Personal history of self-harm; Z59.0 Homelessness

== ENCOUNTER 2018-06-22 13:38 | Inpatient (IN) | payer MEDICAID, SELFPAY ==
[~2018-06-22] VITALS: Ht 177.8 cm; Wt 116.9 kg
[2018-06-22] MEDS: NS 1,000 ML IV SCH ×2 (02:10→19:40)
[~2018-06-22 13:38] MED LIST changes: +BENZ2TAB5 PO; +COZA1TAB PO; +HYDR50TA70 PO; +PROP10TA56 PO
--- NOTE | 2018-06-22 14:27 | REP ---
CT Head without contrast HISTORY: Confusion COMPARISON: 01/18/2018 There is no intraparenchymal hemorrhage, acute infarct, mass or midline shift. The ventricular system is normal in appearance. There is no extra cerebral collection. There is no fracture. The visualized sinuses are clear. IMPRESSION: There is no intracranial lesion. Electronically Signed by Blake Casas MD 06/22/2018 02:18 P
[2018-06-22] MEDS ORDERED: NS 500 ML IV ONE ×2 (14:30→15:30)
[2018-06-22 14:56] LABS: BASO % 0.5 % (0.0-1.0); EOS # 0.2 10^3/uL (0.0-0.50); HEMATOCRIT 40.6 % (42.0-52.0); HEMOGLOBIN 13.8 g/dl (13.5-17.5); LYMPH # 1.8 10^3/uL (1.5-4.5); LYMPH % 27.9 % (24.0-44.0); MEAN CORPUSCULAR HEMOGLOBIN 29.6 pg (27.0-33.0); MEAN CORPUSCULAR VOLUME 87.1 fl (80.0-96.0); MONO # 0.6 10^3/uL (0.0-0.8); MONO % 9.4 % (0.0-5.0); NEUTROPHILS # 3.8 10^3/uL (1.8-7.7); NEUTROPHILS % 58.9 % (36.0-66.0); PLATELET COUNT, AUTOMATED 279 10^3/uL (150-450); RED BLOOD COUNT 4.66 10^6/uL (4.30-6.10); WHITE BLOOD COUNT 6.4 10^3/uL (4.0-10.0)
[2018-06-22 15:02] LABS: INR 0.98; PROTHROMBIN TIME 13.1 SECONDS (12.1-14.4)
[2018-06-22] MEDS ORDERED: HYDR50TA30 PO (15:02)
--- NOTE | 2018-06-22 15:02 | REP ---
Chest one-view HISTORY: Altered mental status Comparison: 12/02/2017 Linear densities are present in the left lower lobe consistent with atelectasis or scar. The right lung is clear. The heart is normal in size. The pulmonary vasculature is normal in appearance. Impression: Left lower lobe atelectasis or scar. Electronically Signed by Blake Casas MD 06/22/2018 02:53 P
[2018-06-22 15:03] LABS: PARTIAL THROMBOPLASTIN TIME 35.7 SECONDS (25.4-37.6)
--- NOTE | 2018-06-22 15:06 | ECGEPIP ---
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
[2018-06-22] MEDS ORDERED: FLUO20CA19 PO (15:07)
[2018-06-22] MEDS ORDERED: BENZ2TAB5 PO (15:07)
[2018-06-22] MEDS ORDERED: GABA-843 PO (15:07)
[2018-06-22] MEDS ORDERED: SERO200T PO (15:07)
[2018-06-22] MEDS ORDERED: PROP10TA56 PO (15:07)
[2018-06-22] MEDS ORDERED: TRAZ-163 PO (15:07)
[2018-06-22] MEDS ORDERED: LOSA25TA14 PO (15:07)
[2018-06-22 15:17] LABS: BLOOD UREA NITROGEN 19 MG/DL (7-18); CALCIUM LEVEL 8.9 MG/DL (8.5-10.1); CARBON DIOXIDE LEVEL 28 MEQ/L (21-32); CHLORIDE LEVEL 107 MEQ/L (98-107); CK-MB VALUE MASS < 1.0 NG/ML (<3.6); CPK CREATINE PHOSPHOKINASE 60 U/L (39-308); CREATININE FOR GFR 1.64 MG/DL (0.70-1.30); GLOMERULAR FILTRATION RATE 47.8 (>60); GLUCOSE, FASTING 85 MG/DL (70-100); MB/CK RELATIVE INDEX 1.67 (< OR =4); POTASSIUM SERUM 4.5 MEQ/L (3.5-5.1); SODIUM LEVEL 138 MEQ/L (136-145); TROPONIN I < 0.02 NG/ML (< 0.10)
[2018-06-22 16:09] LABS: AMPHETAMINES LEVEL URINE NEGATIVE (NEGATIVE); BARBITURATES URINE NEGATIVE (NEGATIVE); BENZODIAZEPINES URINE NEGATIVE (NEGATIVE); CANNABINOIDS URINE NEGATIVE (NEGATIVE); COCAINE METABOLITE URINE NEGATIVE (NEGATIVE); METHADONE URINE NEGATIVE (NEGATIVE); OPIATES URINE NEGATIVE (NEGATIVE); PHENCYCLIDINE URINE NEGATIVE (NEGATIVE)
[2018-06-22] MEDS ORDERED: NS 1,000 ML IV ONE (16:15)
[2018-06-22 16:45] LABS: ACETAMINOPHEN LEVEL < 2.0 UG/ML (10.0-30.0); ALT/SGPT 21 U/L (12-78); BILIRUBIN,DIRECT 0.1 MG/DL (0.0-0.2); BILIRUBIN,TOTAL 0.5 MG/DL (0.2-1.0); ETHYL ALCOHOL (ETHANOL) < 0.003 % (0.000-0.010); MAGNESIUM LEVEL 2.2 MG/DL (1.8-2.4); SALICYLATE LEVEL 2.4 MG/DL (5.0-30.0); TOTAL PROTEIN 7.3 GM/DL (6.4-8.2)
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
[2018-06-22] MEDS: ENOXAPARIN 40 MG/0.4 ML SYRINGE (J1650) SC SCH (19:40)
[2018-06-22 20:30] VITALS: BP 146/86
--- NOTE | 2018-06-22 21:37 | ECGEPIP ---
Stationary ECG Study [facility] - ED Test Date: 2018-06-22 Pat Name: MITCHELL ARAGON Department: Room: - Gender: M Head Baker: YESY : 1970 Requested By: Jagjit Patton Order Number: [id number] Reading MD: Uriel Gaxiola Measurements Intervals [place] Rate: 81 P: 30 [place]: 164 QRS: -5 QRSD: 110 T: 37 QT: 301 QTc: 350 Interpretive Statements SINUS RHYTHM NONSPECIFIC T-WAVE ABNORMALITY QTc normalized from tracing done at 14:19 on the same date Electronically Signed On 06-22-2018 21:37:04 EDT by Uriel Gaxiola
[2018-06-23 00:01] LABS: BLOOD UREA NITROGEN 19 MG/DL (7-18); CALCIUM LEVEL 8.1 MG/DL (8.5-10.1); CARBON DIOXIDE LEVEL 27 MEQ/L (21-32); CHLORIDE LEVEL 111 MEQ/L (98-107); CREATININE FOR GFR 1.26 MG/DL (0.70-1.30); GLOMERULAR FILTRATION RATE > 60.0 (>60); GLUCOSE, FASTING 88 MG/DL (70-100); SODIUM LEVEL 141 MEQ/L (136-145)
[2018-06-23 06:00] VITALS: BP 140/82
[2018-06-23 06:19] LABS: HEMATOCRIT 37.7 % (42.0-52.0); HEMOGLOBIN 12.5 g/dl (13.5-17.5); MEAN CORPUSCULAR HEMOGLOBIN 29.3 pg (27.0-33.0); MEAN CORPUSCULAR HGB CONC 33.2 g/dl (32.0-36.5); MEAN CORPUSCULAR VOLUME 88.3 fl (80.0-96.0); PLATELET COUNT, AUTOMATED 238 10^3/uL (150-450); RED BLOOD COUNT 4.27 10^6/uL (4.30-6.10); WHITE BLOOD COUNT 5.3 10^3/uL (4.0-10.0)
[2018-06-23 06:42] LABS: BLOOD UREA NITROGEN 18 MG/DL (7-18); CARBON DIOXIDE LEVEL 27 MEQ/L (21-32); CHLORIDE LEVEL 112 MEQ/L (98-107); CREATININE FOR GFR 1.13 MG/DL (0.70-1.30); GLOMERULAR FILTRATION RATE > 60.0 (>60); GLUCOSE, FASTING 85 MG/DL (70-100); POTASSIUM SERUM 4.2 MEQ/L (3.5-5.1); SODIUM LEVEL 141 MEQ/L (136-145)
--- NOTE | 2018-06-23 07:01 | ECGEPIP ---
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
[2018-06-23] MEDS ORDERED: ACETAMINOPH W/CODEINE #3 TAB UD PO ONE (08:45)
[2018-06-23] MEDS ORDERED: ACETAMINOPHEN TAB 650MG DOSE (2X325MG) PO PRN (08:45)
[2018-06-23] MEDS: ENOXAPARIN 40 MG/0.4 ML SYRINGE (J1650) SC SCH (08:48)
[2018-06-23] MEDS ORDERED: ACET1TAB55 PO (15:13)
[2018-06-23 16:29] VITALS: BP 168/90
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
[2018-07-19] MEDS ORDERED: TRAZO50TA PO (10:13)
[2018-07-19] MEDS ORDERED: HYDRO50TAB PO (10:13)
[2018-07-19] MEDS ORDERED: REQU1TAB14 PO (10:13)
[2018-07-19] MEDS ORDERED: PROP10TA56 PO (10:13)
[2018-07-19] MEDS ORDERED: FLUO20CA19 PO (10:13)
== END 2018-06-23 16:45 | DRG 775 ==
LOC: M ED 13:38 → M ED INP 16:09 → M MS5PR 20:45
PROVIDERS: ADMIT General Practice; ATTEND General Practice
DX: F19.921 Other psychoactive substance use, unspecified with intoxication with delirium (principal); N17.9 Acute kidney failure, unspecified; F10.10 Alcohol abuse, uncomplicated; I45.81 Long QT syndrome; F32.9 Major depressive disorder, single episode, unspecified; F41.9 Anxiety disorder, unspecified; F12.10 Cannabis abuse, uncomplicated; G40.909 Epilepsy, unspecified, not intractable, without status epilepticus; G43.709 Chronic migraine without aura, not intractable, without status migrainosus; M48.061 Spinal stenosis, lumbar region without neurogenic claudication; M51.26 Other intervertebral disc displacement, lumbar region; F17.200 Nicotine dependence, unspecified, uncomplicated; I10 Essential (primary) hypertension; Z87.820 Personal history of traumatic brain injury; Z88.0 Allergy status to penicillin; Z88.8 Allergy status to other drugs, medicaments and biological substances; Z91.040 Latex allergy status

== ENCOUNTER 2018-08-18 10:05 | Emergency (ER) | payer MEDICAID, OTHER ==
[~2018-08-18] VITALS: Ht 177.8 cm; Wt 109.1 kg
[~2018-08-18 10:05] MED LIST changes: +ACET1TAB55 PO; +HYDR1TAB33 PO; +HYDR50TA30 PO; -HYDRO50TAB PO; -LISI20TA PO; +LISI20TA19 PO; +LOSA25TA14 PO; -QUET1TAB9 PO; +QUET200T2 PO; +REQU1TAB14 PO; +SERO200T PO; +TRAZ-257 PO; -TRAZ10TA PO; +TRAZ1TAB10 PO; +TRAZ1TAB11 PO; +TRAZ1TAB12 PO; -TRAZ25TA PO; -TRAZO50TA PO
[2018-08-18] MEDS ORDERED: NORCO, ANEXSIA 5/325MG TABLET (HYDROcodone/ACETAMINOPHEN) PO ONE (10:45)
--- NOTE | 2018-08-18 11:05 | REP ---
Sacrum and coccyx three views: There are no comparisons. The sacroiliac articulations are unremarkable. The sacral ala and foramen are unremarkable. There is no fracture or displacement. Mineralization is normal. There are calcifications in the pelvis on the left, nonspecific, phleboliths versus ureteral. Impression: No fracture. Pelvic calcifications, phleboliths versus ureteral. Electronically Signed by Maximus Flores MD 08/18/2018 10:57 A
[2018-08-18] MEDS ORDERED: NAPR-837 PO (11:13)
[2018-08-18 11:16] VITALS: BP 148/81
== END 2018-08-18 11:25 | disposition home or self-care (01) ==
LOC: M ED 10:05
DX: S30.0XXA Contusion of lower back and pelvis, initial encounter (principal); W01.0XXA Fall on same level from slipping, tripping and stumbling without subsequent striking against object, initial encounter; Y92.89 Other specified places as the place of occurrence of the external cause; I10 Essential (primary) hypertension; Z88.0 Allergy status to penicillin; Z88.8 Allergy status to other drugs, medicaments and biological substances; Z91.040 Latex allergy status

== ENCOUNTER 2018-09-12 22:16 | Emergency (ER) | payer MEDICAID ==
[~2018-09-12] VITALS: Ht 177.8 cm; Wt 260.0 kg
[~2018-09-12 22:16] MED LIST changes: +LISI20TA18 PO; -LISI20TA19 PO; +NAPR-837 PO; +TRAZ-163 PO; -TRAZ-257 PO; +TRAZ10TA PO; -TRAZ1TAB12 PO
[2018-09-12 23:26] LABS: HEMATOCRIT 42.4 % (42.0-52.0); HEMOGLOBIN 14.1 g/dl (13.5-17.5); MEAN CORPUSCULAR HEMOGLOBIN 30.5 pg (27.0-33.0); MEAN CORPUSCULAR HGB CONC 33.3 g/dl (32.0-36.5); MEAN CORPUSCULAR VOLUME 91.6 fl (80.0-96.0); PLATELET COUNT, AUTOMATED 268 10^3/uL (150-450); RED BLOOD COUNT 4.63 10^6/uL (4.30-6.10); WHITE BLOOD COUNT 9.4 10^3/uL (4.0-10.0)
[2018-09-12 23:46] LABS: AMPHETAMINES LEVEL URINE NEGATIVE (NEGATIVE); BARBITURATES URINE NEGATIVE (NEGATIVE); BENZODIAZEPINES URINE NEGATIVE (NEGATIVE); CANNABINOIDS URINE POSITIVE (NEGATIVE); COCAINE METABOLITE URINE NEGATIVE (NEGATIVE); METHADONE URINE NEGATIVE (NEGATIVE); OPIATES URINE NEGATIVE (NEGATIVE); PHENCYCLIDINE URINE NEGATIVE (NEGATIVE)
[2018-09-12 23:53] LABS: ACETAMINOPHEN LEVEL < 2.0 UG/ML (10.0-30.0); ALBUMIN 3.5 GM/DL (3.2-5.2); ALT/SGPT 16 U/L (12-78); BILIRUBIN,DIRECT < 0.1 MG/DL (0.0-0.2); BILIRUBIN,TOTAL 0.1 MG/DL (0.2-1.0); BLOOD UREA NITROGEN 17 MG/DL (7-18); CALCIUM LEVEL 8.5 MG/DL (8.5-10.1); CARBON DIOXIDE LEVEL 23 MEQ/L (21-32); CHLORIDE LEVEL 109 MEQ/L (98-107); CREATININE FOR GFR 1.06 MG/DL (0.70-1.30); GLOMERULAR FILTRATION RATE > 60.0 (>60); GLUCOSE, FASTING 101 MG/DL (70-100); POTASSIUM SERUM 3.9 MEQ/L (3.5-5.1); SALICYLATE LEVEL 3.6 MG/DL (5.0-30.0); SODIUM LEVEL 141 MEQ/L (136-145); TOTAL PROTEIN 6.3 GM/DL (6.4-8.2)
[2018-09-13 07:11] VITALS: BP 127/76
== END 2018-09-13 07:13 | disposition home or self-care (01) ==
LOC: M ED 22:16
DX: F10.129 Alcohol abuse with intoxication, unspecified (principal); I10 Essential (primary) hypertension; F33.9 Major depressive disorder, recurrent, unspecified; F41.9 Anxiety disorder, unspecified; R56.9 Unspecified convulsions; E66.9 Obesity, unspecified; Z88.0 Allergy status to penicillin; Z88.8 Allergy status to other drugs, medicaments and biological substances; Z91.040 Latex allergy status
CPT/HCPCS: 36415; 80048; 80076; 80307; 84443; 85027; 99284; G0480

== ENCOUNTER → 2018-09-22 | Outpatient (REF) | payer OTHER, MEDICAID ==
[~2018-09-22] MED LIST changes: -HYDR1TAB33 PO; +HYDRO50TAB PO; +LISI20TA PO; -LISI20TA18 PO; +QUET1TAB9 PO; -QUET200T2 PO
[2018-09-22 19:23] LABS: BASO # 0.1 10^3/uL (0.0-0.2); BASO % 0.5 % (0.0-1.0); EOS # 0.1 10^3/uL (0.0-0.50); EOS % 1.4 % (0.0-3.0); HEMATOCRIT 45.2 % (42.0-52.0); HEMOGLOBIN 15.1 g/dl (13.5-17.5); LYMPH # 2.5 10^3/uL (1.5-4.5); LYMPH % 26.5 % (24.0-44.0); MEAN CORPUSCULAR HEMOGLOBIN 30.6 pg (27.0-33.0); MEAN CORPUSCULAR HGB CONC 33.4 g/dl (32.0-36.5); MEAN CORPUSCULAR VOLUME 91.5 fl (80.0-96.0); MONO # 0.9 10^3/uL (0.0-0.8); MONO % 8.9 % (0.0-5.0); NEUTROPHILS % 62.4 % (36.0-66.0); PLATELET COUNT, AUTOMATED 287 10^3/uL (150-450); RED BLOOD COUNT 4.94 10^6/uL (4.30-6.10); WHITE BLOOD COUNT 9.6 10^3/uL (4.0-10.0)
[2018-09-22 19:28] LABS: ALBUMIN 3.8 GM/DL (3.2-5.2); ALT/SGPT 16 U/L (12-78); BILIRUBIN,TOTAL 0.3 MG/DL (0.2-1.0); BLOOD UREA NITROGEN 13 MG/DL (7-18); CALCIUM LEVEL 8.7 MG/DL (8.5-10.1); CARBON DIOXIDE LEVEL 27 MEQ/L (21-32); CHLORIDE LEVEL 109 MEQ/L (98-107); CHOLESTEROL LEVEL 147 MG/DL (<200); CHOLESTEROL RISK RATIO 2.773 (<5); CREATININE FOR GFR 0.98 MG/DL (0.70-1.30); FREE T4 0.91 NG/DL (0.76-1.46); GLOMERULAR FILTRATION RATE > 60.0 (>60); GLUCOSE, FASTING 85 MG/DL (70-100); HDL CHOLESTEROL 53 MG/DL (>40); LDL CHOLESTEROL 57 MG/DL (<100); NON-HDL-C 94 MG/DL; POTASSIUM SERUM 4.4 MEQ/L (3.5-5.1); SODIUM LEVEL 143 MEQ/L (136-145); TOTAL PROTEIN 6.9 GM/DL (6.4-8.2); TRIGLYCERIDES LEVEL 187 MG/DL (<150)
[2018-09-22 19:58] LABS: HEMOGLOBIN A1c 5.8 %
[2018-09-23 10:01] LABS: RUBELLA IgG QUALITATIVE IMMUNE (IMMUNE)
[2018-09-24 08:06] LABS: HERPES ZOSTER, VARICELLA IgG 643 index (Immune >165); RUBEOLA IgG ANTIBODY <25.0 AU/mL (Immune >29.9)
== END ==
LOC: M LAB REF 18:46
PROVIDERS: ATTEND Nurse Practitioner Family
DX: Z13.9 Encounter for screening, unspecified (principal)